=== PATIENT | male | born 1970 | race Two or more races ===

== ENCOUNTER 2017-06-08 17:18 | Emergency (ER) | payer MEDICAID ==
[~2017-06-08] VITALS: Ht 165.1 cm; Wt 72.0 kg
[~2017-06-08 17:18] MED LIST: AMLO10TA13 PO; CITA20TA11 PO; CLON0.1T20 PO; COR3.125T PO; IPRA4AER IH; LISI-644 PO; LOVA40TA2 PO; PANT-47 PO
[2017-06-08 17:50] LABS: BASOPHILS % (AUTO) 0.5 % (0-1); EOSINOPHILS # (AUTO) 0.3 X10'3 (0-0.9); EOSINOPHILS % (AUTO) 4.1 % (0-6); HEMATOCRIT 30.2 % (42.0-52.0); HEMOGLOBIN 9.4 g/dl (14.0-17.9); LYMPHOCYTES # (AUTO) 1.7 X10'3 (1.1-4.8); LYMPHOCYTES % (AUTO) 23.3 % (21-51); MEAN CORPUSCULAR HEMOGLOBIN 20.8 PG (27.0-31.0); MEAN CORPUSCULAR HGB CONC 31.3 % (33.0-36.5); MEAN CORPUSCULAR VOLUME 66.5 FL (78-98); MEAN PLATELET VOLUME 6.9 FL (7.4-10.4); MONOCYTES # (AUTO) 0.4 X10'3 (0-0.9); MONOCYTES % (AUTO) 6.2 % (2-12); NEUTROPHILS # (AUTO) 4.7 X10'3 (1.8-7.7); NEUTROPHILS % (AUTO) 65.9 % (42-75); PLATELET COUNT 430 X10'3 (140-440); RED BLOOD COUNT 4.54 X10'6 (4.70-6.10); RED CELL DISTRIBUTION WIDTH 17.6 % (11.5-14.5); WHITE BLOOD COUNT 7.2 X10'3 (4.5-11.0)
[2017-06-08 17:59] LABS: INR 0.9 INR; PROTHROMBIN TIME 9.5 SECONDS (9.0-12.0)
[2017-06-08 18:04] LABS: ALBUMIN 4.4 G/DL (3.4-5.0); ANION GAP 14 (8-16); BILIRUBIN,TOTAL 0.3 MG/DL (0.1-1.0); BLOOD UREA NITROGEN 14 MG/DL (7-18); BUN/CREATININE RATIO 10.2 (5.4-32.0); CALCIUM 9.2 MG/DL (8.5-10.1); CHLORIDE 100 MMOL/L (99-107); CREATININE 1.37 MG/DL (0.60-1.10); GLUCOSE 262 MG/DL (70-104); POTASSIUM 3.7 MMOL/L (3.5-5.1); SODIUM 139 MMOL/L (135-145); TOTAL CARBON DIOXIDE 25.3 MMOL/L (24-32); eGFR 56 ML/MIN
[2017-06-08 18:05] LABS: ALANINE AMINOTRANSFERASE 37 U/L (12-78); ALBUMIN/GLOBULIN RATIO 1.2 (1.1-1.5); ALKALINE PHOSPHATASE 73 IU/L (46-116); ASPARTATE AMINO TRANSFERASE 16 U/L (10-37)
[2017-06-08 18:24] LABS: PLATELET ESTIMATE NORMAL
[2017-06-08 18:30] LABS: ANISOCYTOSIS 2+; POIKILOCYTOSIS 2+
[2017-06-08 18:32] LABS: POLYCHROMASIA FEW
[2017-06-08 18:33] LABS: HYPOCHROMASIA 1+
[2017-06-08 19:31] LABS: CLARITY,URINE CLEAR (Clear); COLOR,URINE STRAW (Yellow); GLUCOSE, URINE >=1000 mg/dl (Neg); KETONES,URINE NEGATIVE (Neg); LEUKOCYTE ESTERASE ,URINE NEGATIVE (Neg); NITRITES, URINE NEGATIVE (Neg); OCCULT BLOOD,URINE NEGATIVE (Neg); PH,URINE 5.5 (4.8-8.0); PROTEIN,URINE NEGATIVE (Neg); UROBILINOGEN,URINE 0.2 E.U/dL (0.2-1.0)
[2017-06-08 19:35] LABS: UA COLLECTION TYPE CLN CATCH MIDSTREAM
[2017-06-08 19:43] LABS: BACTERIA,URINE NONE SEEN /HPF (Neg); MUCUS STRANDS NONE SEEN /LPF (Neg); RBC,URINE NONE SEEN /HPF (0-2); SQUAMOUS EPITHELIAL CELL,UR FEW /LPF (FEW); WBC,URINE NONE SEEN /HPF (0-4)
[2017-06-08 20:25] VITALS: BP 120/65
[2017-06-11 09:35] LABS: OCCULT BLOOD STOOL NEGATIVE (Neg)
== END 2017-06-08 20:26 | disposition home or self-care (01) ==
LOC: ER 17:19
DX: D53.9 Nutritional anemia, unspecified (principal); I25.10 Atherosclerotic heart disease of native coronary artery without angina pectoris; I25.2 Old myocardial infarction; J45.909 Unspecified asthma, uncomplicated; E78.00 Pure hypercholesterolemia, unspecified; I11.0 Hypertensive heart disease with heart failure; I50.9 Heart failure, unspecified; Z98.62 Peripheral vascular angioplasty status; Z79.899 Other long term (current) drug therapy
CPT/HCPCS: 36415; 71045; 80053; 81001; 82272; 85025; 85610; 86885; 86900; 86901; 93005; 99285

== ENCOUNTER 2020-06-14 19:18 | Emergency (ER) | payer MEDICAID ==
[~2020-06-14] VITALS: Ht 165.1 cm; Wt 79.3 kg
[~2020-06-14 19:18] MED LIST changes: -CITA20TA11 PO; +CITA20TA28 PO; +CLON0.1T2 PO; -CLON0.1T20 PO
[2020-06-14 20:04] LABS: BASOPHILS % (AUTO) 0.2 % (0-1); EOSINOPHILS # (AUTO) 0.2 X10'3 (0-0.9); EOSINOPHILS % (AUTO) 3.2 % (0-6); LYMPHOCYTES # (AUTO) 1.5 X10'3 (1.1-4.8); LYMPHOCYTES % (AUTO) 20.4 % (21-51); MEAN CORPUSCULAR HEMOGLOBIN 28.8 PG (27.0-31.0); MEAN CORPUSCULAR HGB CONC 32.3 g/dL (33.0-36.5); MEAN CORPUSCULAR VOLUME 89.3 FL (78-98); MEAN PLATELET VOLUME 6.8 FL (7.4-10.4); MONOCYTES # (AUTO) 0.5 X10'3 (0-0.9); MONOCYTES % (AUTO) 6.5 % (2-12); NEUTROPHILS # (AUTO) 5.1 X10'3 (1.8-7.7); NEUTROPHILS % (AUTO) 69.7 % (42-75); PLATELET COUNT 381 X10'3 (140-440); RED BLOOD COUNT 3.13 X10'6 (4.70-6.10); RED CELL DISTRIBUTION WIDTH 14.8 % (11.5-14.5); WHITE BLOOD COUNT 7.3 X10'3 (4.5-11.0)
[2020-06-14 20:08] LABS: ALANINE AMINOTRANSFERASE 52 U/L (12-78); ALBUMIN 3.8 G/DL (3.4-5.0); ALBUMIN/GLOBULIN RATIO 1.2 (1.1-1.5); ALKALINE PHOSPHATASE 81 IU/L (46-116); ANION GAP 14 (8-16); ASPARTATE AMINO TRANSFERASE 23 U/L (10-37); BILIRUBIN,TOTAL 0.2 MG/DL (0.1-1.0); BLOOD UREA NITROGEN 10 MG/DL (7-18); BUN/CREATININE RATIO 9.1 (5.4-32.0); CALCIUM 8.2 MG/DL (8.5-10.1); CHLORIDE 97 MMOL/L (99-107); GLUCOSE 314 MG/DL (70-104); POTASSIUM 3.5 MMOL/L (3.5-5.1); SODIUM 134 MMOL/L (135-145); TOTAL CARBON DIOXIDE 23.5 MMOL/L (24-32); eGFR 71 ML/MIN
[2020-06-14] MEDS ORDERED: POTA10CA44 PO (20:11)
[2020-06-14] MEDS ORDERED: CLOP75TA34 PO (20:11)
[2020-06-14] MEDS ORDERED: FERR325T29 PO (20:11)
[2020-06-14] MEDS ORDERED: METF-438 PO (20:11)
[2020-06-14] MEDS ORDERED: GABA-530 PO (20:11)
[2020-06-14] MEDS ORDERED: HYDR25TA4 PO (20:11)
[2020-06-14] MEDS ORDERED: INSU100I31 SUBCUT (20:11)
[2020-06-14] MEDS ORDERED: OMEP-50 PO (20:11)
[2020-06-14 22:10] VITALS: BP 148/90
== END 2020-06-14 22:12 | disposition home or self-care (01) ==
LOC: ER 19:19
DX: R07.89 Other chest pain (principal); I25.10 Atherosclerotic heart disease of native coronary artery without angina pectoris; I11.0 Hypertensive heart disease with heart failure; I50.9 Heart failure, unspecified; E78.00 Pure hypercholesterolemia, unspecified; I25.2 Old myocardial infarction; J45.909 Unspecified asthma, uncomplicated; E11.9 Type 2 diabetes mellitus without complications; F41.9 Anxiety disorder, unspecified; Z98.61 Coronary angioplasty status; Z79.899 Other long term (current) drug therapy
CPT/HCPCS: 36415; 71045; 80053; 83880; 84484; 85025; 93005; 99285

== ENCOUNTER 2023-10-24 00:44 | Inpatient (IN) | payer MEDICAID ==
[~2023-10-24] VITALS: Ht 152.4 cm; Wt 80.6 kg
[2023-10-24] VITALS (9 sets, daily range): BP systolic 109–147; BP diastolic 52–75; PULSE 70–77; RESP 16–24; TEMP 97–98.3; O2SAT 92–99
[~2023-10-24 00:44] MED LIST changes: +CLOP75TA34 PO; +FERR325T29 PO; +GABA-530 PO; +HYDR25TA4 PO; +INSU100I31 SUBCUT; +METF-438 PO; +OMEP20CA16 PO; +POTA10CA95 PO
[2023-10-24 01:15] LABS: BASOPHILS # (AUTO) 0.1 X10'3 (0-0.2); BASOPHILS % (AUTO) 0.5 % (0-1); EOSINOPHILS # (AUTO) 0.6 X10'3 (0-0.9); EOSINOPHILS % (AUTO) 5.4 % (0-6); HEMATOCRIT 26.5 % (42.0-52.0); HEMOGLOBIN 7.9 g/dl (14.0-17.9); LYMPHOCYTES # (AUTO) 2.1 X10'3 (1.1-4.8); LYMPHOCYTES % (AUTO) 18.9 % (21-51); MEAN CORPUSCULAR HEMOGLOBIN 21.3 PG (27.0-31.0); MEAN CORPUSCULAR HGB CONC 29.8 g/dL (33.0-36.5); MEAN CORPUSCULAR VOLUME 71.3 FL (78-98); MEAN PLATELET VOLUME 7.9 FL (7.4-10.4); MONOCYTES # (AUTO) 1.1 X10'3 (0-0.9); MONOCYTES % (AUTO) 9.9 % (2-12); NEUTROPHILS # (AUTO) 7.2 X10'3 (1.8-7.7); NEUTROPHILS % (AUTO) 65.3 % (42-75); PLATELET COUNT 277 X10'3 (140-440); RED BLOOD COUNT 3.72 X10'6 (4.70-6.10); RED CELL DISTRIBUTION WIDTH 18.1 % (11.5-14.5)
[2023-10-24 01:29] LABS: ALANINE AMINOTRANSFERASE 40 U/L (12-78); ALBUMIN/GLOBULIN RATIO 1.2 (1.1-1.5); ALKALINE PHOSPHATASE 83 IU/L (46-116); ANION GAP 10 (8-16); ASPARTATE AMINO TRANSFERASE 27 U/L (10-37); BILIRUBIN,TOTAL 0.6 MG/DL (0.1-1.0); BLOOD UREA NITROGEN 9 MG/DL (7-18); BUN/CREATININE RATIO 6.8 (10.0-20.0); CALCIUM 9.1 MG/DL (8.5-10.1); CHLORIDE 96 MMOL/L (99-107); CREATININE 1.33 MG/DL (0.60-1.10); GLUCOSE 270 MG/DL (70-104); POTASSIUM 3.1 MMOL/L (3.5-5.1); SODIUM 135 MMOL/L (135-145); TOTAL CARBON DIOXIDE 28.8 MMOL/L (24-32); TOTAL PROTEIN 7.4 G/DL (6.4-8.2); eCRCL 57 ML/MIN; eGFR 56 ML/MIN
[2023-10-24 01:38] LABS: PRO BRAIN NATRIURETIC PEPTIDE 609 PG/ML (0-125)
[2023-10-24] MEDS: furosemide 10 MG/1 ML 10ml inj IV ONE (01:39)
[2023-10-24 03:54] LABS: ANISOCYTOSIS 2+; HYPOCHROMASIA 2+; PLATELET ESTIMATE NORMAL
[2023-10-24 03:55] LABS: ELLIPTOCYTES FEW; POLYCHROMASIA FEW; STOMATOCYTES FEW
[2023-10-24 03:56] LABS: POIKILOCYTOSIS 1+
[2023-10-24 03:57] LABS: MICROCYTOSIS 1+
[2023-10-24] MEDS ORDERED: magnesium hydroxide 30ml (MOM) UD suspension PO PRN (04:00)
[2023-10-24] MEDS ORDERED: HYDROcodone/acetaminophen 5mg/325mg tablet PO PRN (04:00)
[2023-10-24] MEDS ORDERED: mag hydrox/Alum hydrox/simeth 30ml oral suspension PO PRN (04:00)
[2023-10-24] MEDS ORDERED: ondansetron/PF 4mg/2ml inj IV PRN (04:00)
[2023-10-24] MEDS ORDERED: magnesium Cl slow-release 64mg tablet PO PRN (04:00)
[2023-10-24] MEDS ORDERED: potassium Cl 20 mEq SR tablet PO PRN (04:00)
[2023-10-24] MEDS ORDERED: acetaminophen 325mg tablet PO PRN (04:00)
[2023-10-24] MEDS ORDERED: albuterol 2.5 MG/3 ML nebule NEB PRN (04:00)
[2023-10-24] MEDS ORDERED: potassium Cl 40MEQ/1/2NS 520ml 520 ML IV PRN (04:00)
[2023-10-24] MEDS ORDERED: magnesium sulf-water 4G/100mL 100 ML IV PRN (04:00)
[2023-10-24] MEDS ORDERED: LISI30TA4 PO (04:18)
[2023-10-24] MEDS ORDERED: CARV-50 PO (04:18)
[2023-10-24] MEDS ORDERED: NITR0.4T48 SL (04:18)
[2023-10-24] MEDS ORDERED: FURO20TA4 PO (04:18)
[2023-10-24] MEDS ORDERED: DAPA5TAB PO (04:18)
[2023-10-24] MEDS: PERFLUTREN PROTEIN-A MICROSPHR (Optison) 0.22 MG/ML 3ML VIAL IV ONE (04:19)
[2023-10-24] MEDS ORDERED: DEXTROSE 15 GM of carb/4 tabs (each vial/BOTTLE has 4 tablets) PO PRN ×2 (05:40)
[2023-10-24] MEDS ORDERED: dextrose 50%-water 50ml dispensing syringe IV PRN (05:40)
[2023-10-24] MEDS: INSULIN LISPRO 100 UNIT/ML INSULN.PEN MULTI-DOSE SQ SCH (07:00)
[2023-10-24 07:40] LABS: CHOL/HDL RATIO 3.1 (0.00-4.99); CHOLESTEROL 95 MG/DL (0-200); FERRITIN 9 NG/ML (26-388); HDL CHOLESTEROL 31 MG/DL (35-60); LDL CHOLESTEROL 41 MG/DL (50-100); MAGNESIUM 1.6 MG/DL (1.5-2.4); TRIGLYCERIDES 150 MG/DL (20-135)
[2023-10-24 07:46] LABS: POTASSIUM 2.8 MMOL/L (3.5-5.1)
[2023-10-24 08:04] LABS: HEMOGLOBIN A1C 7.8 % (4.5-6.2)
[2023-10-24] MEDS: docusate sod 100mg capsule PO SCH (08:43)
[2023-10-24] MEDS: potassium Cl 20 mEq SR tablet PO PRN (08:43)
[2023-10-24] MEDS: enoxaparin 40mg/0.4ml syringe SUBCUT SCH (08:45)
[2023-10-24] MEDS: iron sucrose complex injection 300 MG in normal saline 250ml IV soln 250 ML IV SCH (08:45)
[2023-10-24] MEDS: nicotine 7mg patch - 24hr TD SCH (08:45)
[2023-10-24] MEDS: furosemide 10 MG/1 ML 10ml inj IV SCH (09:13)
[2023-10-24 09:42] LABS: % IRON SATURATION 3 % (11-46); IRON 14 UG/DL (53-167); TOTAL IRON BINDING CAPACITY 468 UG/DL (259-388)
[2023-10-24] MEDS ORDERED: furosemide 10 MG/1 ML 10ml inj IV SCH (12:12)
[2023-10-24] MEDS: aspirin 81mg, enteric-coated 1 TAB TABLET.DR PO ONE (13:45)
[2023-10-24] MEDS: magnesium sulf-water 2g/50mL 50 ML IV ONE (13:47)
[2023-10-24 20:25] LABS: OCCULT BLOOD STOOL NEGATIVE (Neg)
[2023-10-24] MEDS: insulin glargine (Lantus) pen - multi-dose SQ SCH (21:48)
[2023-10-24] MEDS: carVEDilol 12.5mg tablet PO SCH (21:49)
[2023-10-24] MEDS: atorvastatin 10mg tablet PO SCH (21:49)
[2023-10-24] MEDS: furosemide 40mg/4ml inj IV SCH (21:49)
[2023-10-24] MEDS: Melatonin 3mg tablet PO PRN (23:05)
[2023-10-25 04:00] VITALS: BP 122/65; PULSE 65; RESP 14; TEMP 98.6; O2SAT 98
[2023-10-25 06:00] VITALS: BP 121/71; PULSE 68; RESP 13; TEMP 97.2; O2SAT 96
[2023-10-25 07:41] LABS: BASOPHILS % (AUTO) 0.5 % (0-1); EOSINOPHILS # (AUTO) 0.5 X10'3 (0-0.9); EOSINOPHILS % (AUTO) 5.5 % (0-6); HEMATOCRIT 26.6 % (42.0-52.0); LYMPHOCYTES # (AUTO) 1.4 X10'3 (1.1-4.8); LYMPHOCYTES % (AUTO) 15.1 % (21-51); MEAN CORPUSCULAR HEMOGLOBIN 21.3 PG (27.0-31.0); MEAN CORPUSCULAR HGB CONC 29.9 g/dL (33.0-36.5); MEAN CORPUSCULAR VOLUME 71.1 FL (78-98); MEAN PLATELET VOLUME 8.1 FL (7.4-10.4); MONOCYTES # (AUTO) 0.9 X10'3 (0-0.9); MONOCYTES % (AUTO) 9.6 % (2-12); NEUTROPHILS # (AUTO) 6.3 X10'3 (1.8-7.7); NEUTROPHILS % (AUTO) 69.3 % (42-75); PLATELET COUNT 256 X10'3 (140-440); RED BLOOD COUNT 3.74 X10'6 (4.70-6.10); RED CELL DISTRIBUTION WIDTH 18.1 % (11.5-14.5); WHITE BLOOD COUNT 9.1 X10'3 (4.5-11.0)
[2023-10-25 07:54] LABS: ALANINE AMINOTRANSFERASE 35 U/L (12-78); ALBUMIN 3.7 G/DL (3.4-5.0); ALKALINE PHOSPHATASE 65 IU/L (46-116); ANION GAP 7 (8-16); ASPARTATE AMINO TRANSFERASE 22 U/L (10-37); BILIRUBIN,TOTAL 0.5 MG/DL (0.1-1.0); BLOOD UREA NITROGEN 9 MG/DL (7-18); BUN/CREATININE RATIO 8.3 (10.0-20.0); CALCIUM 9.2 MG/DL (8.5-10.1); CHLORIDE 106 MMOL/L (99-107); CREATININE 1.09 MG/DL (0.60-1.10); GLUCOSE 152 MG/DL (70-104); POTASSIUM 3.7 MMOL/L (3.5-5.1); SODIUM 142 MMOL/L (135-145); TOTAL CARBON DIOXIDE 29.4 MMOL/L (24-32); TOTAL PROTEIN 7.3 G/DL (6.4-8.2); eCRCL 56 ML/MIN; eGFR 71 ML/MIN
[2023-10-25] MEDS ORDERED: non-formulary drug (Dapagliflozin Propanediol (Farxiga) 1 TAB) PO SCH (08:00)
[2023-10-25] MEDS ORDERED: lisinopril 10 MG tablet PO SCH (08:00)
[2023-10-25] MEDS: sodium ferric gluc complex inj 125 MG in normal saline 100ml IV soln 100 ML IV SCH (08:08)
[2023-10-25] MEDS ORDERED: DAPAGLIFLOZIN 10MG TABLET PO SCH ×2 (08:08)
[2023-10-25 08:26] VITALS: PULSE 74; RESP 16; O2SAT 95
[2023-10-25] MEDS: aspirin 81mg, enteric-coated 1 TAB TABLET.DR PO SCH (09:04)
[2023-10-25] MEDS: clopidogrel 75mg tablet PO SCH (09:05)
[2023-10-25] MEDS: losartan 50mg tablet PO SCH (09:07)
[2023-10-25] MEDS: DAPAGLIFLOZIN 10MG TABLET PO SCH (09:07)
[2023-10-25] MEDS: INSULIN LISPRO 100 UNIT/ML INSULN.PEN MULTI-DOSE SQ SCH (17:00)
[2023-10-25 18:00] VITALS: BP 143/66; PULSE 67; RESP 20; TEMP 98.2; O2SAT 96
[2023-10-25] MEDS ORDERED: dextrose 50%-water 50ml dispensing syringe IV PRN ×2 (18:00)
[2023-10-25] MEDS ORDERED: glucagon, human recombinant 1mg kit SUBCUT PRN (18:00)
[2023-10-25] MEDS ORDERED: DEXTROSE 15 GM of carb/4 tabs (each vial/BOTTLE has 4 tablets) PO PRN ×2 (18:00)
[2023-10-25 20:00] VITALS: RESP 20; O2SAT 96
[2023-10-25 20:02] VITALS: PULSE 74; RESP 16; O2SAT 92
[2023-10-25] MEDS: ascorbic acid 500mg tablet PO SCH (20:46)
[2023-10-26 02:00] VITALS: BP 108/58; PULSE 68; RESP 16; TEMP 97.2; O2SAT 97
[2023-10-26 06:56] VITALS: BP 123/57; PULSE 65; RESP 16; TEMP 97; O2SAT 94
[2023-10-26 07:11] LABS: ALANINE AMINOTRANSFERASE 38 U/L (12-78); ALBUMIN 3.9 G/DL (3.4-5.0); ALKALINE PHOSPHATASE 73 IU/L (46-116); ANION GAP 10 (8-16); ASPARTATE AMINO TRANSFERASE 28 U/L (10-37); BILIRUBIN,TOTAL 0.5 MG/DL (0.1-1.0); BLOOD UREA NITROGEN 10 MG/DL (7-18); BUN/CREATININE RATIO 10.3 (10.0-20.0); CALCIUM 9.8 MG/DL (8.5-10.1); CHLORIDE 103 MMOL/L (99-107); CREATININE 0.97 MG/DL (0.60-1.10); GLUCOSE 155 MG/DL (70-104); POTASSIUM 3.5 MMOL/L (3.5-5.1); SODIUM 140 MMOL/L (135-145); TOTAL CARBON DIOXIDE 27.1 MMOL/L (24-32); TOTAL PROTEIN 7.8 G/DL (6.4-8.2); eCRCL 63 ML/MIN; eGFR 81 ML/MIN
[2023-10-26 07:18] LABS: BASOPHILS # (AUTO) 0.1 X10'3 (0-0.2); BASOPHILS % (AUTO) 0.8 % (0-1); EOSINOPHILS # (AUTO) 0.6 X10'3 (0-0.9); EOSINOPHILS % (AUTO) 5.6 % (0-6); LYMPHOCYTES # (AUTO) 1.9 X10'3 (1.1-4.8); LYMPHOCYTES % (AUTO) 18.8 % (21-51); MEAN PLATELET VOLUME 8.2 FL (7.4-10.4); MONOCYTES # (AUTO) 0.9 X10'3 (0-0.9); MONOCYTES % (AUTO) 9.1 % (2-12); NEUTROPHILS # (AUTO) 6.5 X10'3 (1.8-7.7); NEUTROPHILS % (AUTO) 65.7 % (42-75); PLATELET COUNT 280 X10'3 (140-440); WHITE BLOOD COUNT 9.9 X10'3 (4.5-11.0)
[2023-10-26 07:36] VITALS: BP_SYST 123
[2023-10-26 07:49] LABS: HEMATOCRIT 30.1 % (42.0-52.0); HEMOGLOBIN 9.1 g/dl (14.0-17.9); MEAN CORPUSCULAR VOLUME 72.3 FL (78-98); RED BLOOD COUNT 4.16 X10'6 (4.70-6.10)
[2023-10-26 07:50] LABS: MEAN CORPUSCULAR HEMOGLOBIN 21.8 PG (27.0-31.0); MEAN CORPUSCULAR HGB CONC 30.1 g/dL (33.0-36.5); RED CELL DISTRIBUTION WIDTH 17.9 % (11.5-14.5)
[2023-10-26 08:00] VITALS: RESP 16; O2SAT 94
[2023-10-26 11:00] VITALS: PULSE 64; RESP 20; O2SAT 95
[2023-10-26] MEDS: sodium ferric gluc complex inj 125 MG in normal saline 100ml IV soln 100 ML IV ONE (11:08)
[2023-10-26] MEDS ORDERED: FERR28TA PO (12:41)
[2023-10-26] MEDS ORDERED: LOSA50TA64 PO (12:41)
[2023-10-26] MEDS ORDERED: ASPI-1071 PO (12:41)
[2023-10-26] MEDS ORDERED: ASCO-134 PO (12:41)
[2023-10-27] MEDS ORDERED: iron polysaccharide complex 150mg capsule PO SCH (20:00)
== END 2023-10-26 13:40 | disposition home or self-care (01) | DRG 194 ==
LOC: ER 00:45 → ED HOLD 04:06 → PCU 3S 05:43
PROVIDERS: ADMIT Student in an Organized Health Care Education/Training Program; ATTEND Family Medicine
DX: I11.0 Hypertensive heart disease with heart failure (principal); N17.0 Acute kidney failure with tubular necrosis; Z79.01 Long term (current) use of anticoagulants; E11.9 Type 2 diabetes mellitus without complications; E78.00 Pure hypercholesterolemia, unspecified; D50.9 Iron deficiency anemia, unspecified; E83.42 Hypomagnesemia; E87.6 Hypokalemia; I25.10 Atherosclerotic heart disease of native coronary artery without angina pectoris; F32.A Depression, unspecified; I50.33 Acute on chronic diastolic (congestive) heart failure; F41.9 Anxiety disorder, unspecified; J45.909 Unspecified asthma, uncomplicated; T50.995A Adverse effect of other drugs, medicaments and biological substances, initial encounter; Y92.89 Other specified places as the place of occurrence of the external cause; I25.2 Old myocardial infarction; Z79.84 Long term (current) use of oral hypoglycemic drugs; Z79.899 Other long term (current) drug therapy
CPT/HCPCS: 36415; 71045; 80053; 80061; 82272; 82728; 82948; 83036; 83540; 83550; 83735; 83880; 84132; 84484; 85008; 85025; 87081; 93005; 93306; 94760; 97110; 97116; 97161; 97530; 99285; G0378; J1650; J1756; J1815; J1940; J2916; J7040; J7050

== ENCOUNTER 2023-11-06 01:26 | Inpatient (IN) | payer MEDICAID ==
[2023-11-06] VITALS (29 sets, daily range): BP systolic 96–157; BP diastolic 57–94; PULSE 63–88; RESP 8–26; TEMP 97.8–98.2; O2SAT 87–100
[~2023-11-06] VITALS: Ht 152.4 cm; Wt 68.2 kg
[~2023-11-06 01:26] MED LIST changes: +ASCO-134 PO; +ASPI-1071 PO; +CARV-50 PO; -COR3.125T PO; +DAPA5TAB PO; +FERR28TA PO; -FERR325T29 PO; +FURO20TA4 PO; -LISI-644 PO; +LOSA50TA64 PO; +NITR0.4T48 SL; -PANT-47 PO
[2023-11-06] MEDS: furosemide 10 MG/1 ML 10ml inj IV ONE (01:53)
[2023-11-06 02:08] LABS: ALBUMIN 4.4 G/DL (3.4-5.0); ANION GAP 17 (8-16); BLOOD UREA NITROGEN 6 MG/DL (7-18); BUN/CREATININE RATIO 4.6 (10.0-20.0); CALCIUM 9.1 MG/DL (8.5-10.1); CHLORIDE 98 MMOL/L (99-107); GLUCOSE 275 MG/DL (70-104); MAGNESIUM 1.5 MG/DL (1.5-2.4); PRO BRAIN NATRIURETIC PEPTIDE 369 PG/ML (0-125); SODIUM 141 MMOL/L (135-145); TOTAL CARBON DIOXIDE 26.4 MMOL/L (24-32); eCRCL 47 ML/MIN; eGFR 58 ML/MIN
[2023-11-06 02:44] LABS: ABG BASE EXCESS -9.9 mmol/L (-2.0-3.0); ABG HCO3 21.9 mmol/L (21.0-28.0); ABG OXYGEN SATURATION 94.6 % (94.0-98.0); ABG PH (T) 7.034 (7.350-7.450); ABG PO2 (T) 102.8 mmHg (83.0-108.0); FHHb 5.1 % (0.0-5.0); FMetHb 0.3 % (0.0-1.5); FO2Hb 88.6 % (94.0-98.0); MODE VENT - PRVC; PEEP 10 cm H2O; RESPIRATORY RATE 16 b/min; TIDAL VOLUME 400 mL; TOTAL HEMOGLOBIN 11.6 G/dl (13.5-17.5)
[2023-11-06] MEDS: albuterol 2.5 MG/3 ML nebule NEB ONE (02:55)
[2023-11-06] MEDS ORDERED: magnesium sulf-water 2g/50mL 50 ML IV PRN ×3 (02:55→07:35)
[2023-11-06] MEDS ORDERED: potassium Cl 20 mEq SR tablet PO PRN ×4 (02:55→04:15)
[2023-11-06] MEDS ORDERED: magnesium sulf-water 4G/100mL 100 ML IV PRN ×3 (02:55→07:35)
[2023-11-06] MEDS ORDERED: albuterol 2.5 MG/3 ML nebule CONTNEB PRN (02:55)
[2023-11-06] MEDS: nitroGLYCERIN-Tridil 50MG/D5W 250 ML IV PRN (03:02)
[2023-11-06] MEDS: ipratropium 0.5 MG/2.5ML nebule IH ONE (03:20)
[2023-11-06 03:28] LABS: BILIRUBIN,URINE NEGATIVE (Neg); CLARITY,URINE CLEAR (Clear); COLOR,URINE STRAW (Yellow); GLUCOSE, URINE >=1000 mg/dl (Neg); KETONES,URINE NEGATIVE (Neg); LEUKOCYTE ESTERASE ,URINE NEGATIVE (Neg); NITRITES, URINE NEGATIVE (Neg); OCCULT BLOOD,URINE TRACE-INTACT (Neg); PROTEIN,URINE 30 mg/dl (Neg); UROBILINOGEN,URINE 0.2 E.U/dL (0.2-1.0)
[2023-11-06] MEDS: propofol 1000mg/100ml bottle 100 ML IV ONE (03:30)
[2023-11-06 03:35] LABS: URINE AMPHETAMINE SCREEN NEGATIVE (Neg); URINE BARBITUATE SCREEN NEGATIVE (Neg); URINE BENZODIAZEPINES SCREEN NEGATIVE (Neg); URINE CANNABINOID SCREEN NEGATIVE (Neg); URINE COCAINE SCREEN NEGATIVE (Neg); URINE METHADONE SCREEN NEGATIVE (Neg); URINE OPIATE SCREEN POSITIVE (Neg); URINE PHENCYCLIDINE SCREEN NEGATIVE (Neg)
[2023-11-06] MEDS: NORepinephrine 8mg/ 250ml NS 250 ML IV SCH (03:35)
[2023-11-06 03:38] LABS: UA COLLECTION TYPE FOLEY CATH
[2023-11-06 03:41] LABS: SQUAMOUS EPITHELIAL CELL,UR FEW /LPF (FEW)
[2023-11-06 03:43] LABS: BACTERIA,URINE FEW /HPF (Neg)
[2023-11-06 03:44] LABS: WBC,URINE 0-4 /HPF (0-4)
[2023-11-06] MEDS: methylPREDNISolone sod succ 125mg/2ml vial IV ONE (03:57)
[2023-11-06] MEDS: piperacillin/tazo 3.375gm/50ml 50 ML IV ONE (03:58)
[2023-11-06] MEDS ORDERED: magnesium hydroxide 30ml (MOM) UD suspension PO PRN (04:15)
[2023-11-06] MEDS ORDERED: acetaminophen 325mg tablet PO PRN (04:15)
[2023-11-06] MEDS ORDERED: mag hydrox/Alum hydrox/simeth 30ml oral suspension PO PRN (04:15)
[2023-11-06] MEDS ORDERED: ondansetron/PF 4mg/2ml inj IV PRN (04:15)
[2023-11-06] MEDS ORDERED: potassium Cl 40MEQ/1/2NS 520ml 520 ML IV PRN (04:15)
[2023-11-06] MEDS ORDERED: magnesium Cl slow-release 64mg tablet PO PRN (04:15)
[2023-11-06 04:35] LABS: BASOPHILS # (AUTO) 0.1 X10'3 (0-0.2); BASOPHILS % (AUTO) 0.3 % (0-1); EOSINOPHILS # (AUTO) 0.4 X10'3 (0-0.9); EOSINOPHILS % (AUTO) 1.4 % (0-6); LYMPHOCYTES # (AUTO) 2.1 X10'3 (1.1-4.8); MEAN PLATELET VOLUME 7.7 FL (7.4-10.4)
[2023-11-06 04:37] LABS: LYMPHOCYTES % (AUTO) 7.8 % (21-51); MONOCYTES # (AUTO) 2.1 X10'3 (0-0.9); MONOCYTES % (AUTO) 7.9 % (2-12); NEUTROPHILS # (AUTO) 22.3 X10'3 (1.8-7.7); NEUTROPHILS % (AUTO) 82.6 % (42-75); PLATELET COUNT 449 X10'3 (140-440)
[2023-11-06 04:41] LABS: ABG BASE EXCESS -0.7 mmol/L (-2.0-3.0); ABG HCO3 27.8 mmol/L (21.0-28.0); ABG OXYGEN SATURATION 94.1 % (94.0-98.0); ABG PCO2 (T) 62.5 mmHg (35.0-48.0); ABG PH (T) 7.257 (7.350-7.450); ABG PO2 (T) 74.3 mmHg (83.0-108.0); FCOHb 4.3 % (0.5-1.5); FHHb 5.6 % (0.0-5.0); FMetHb 0.3 % (0.0-1.5); FO2Hb 89.8 % (94.0-98.0); MODE VENT - PRVC; PATIENT TEMPERATURE 35.3; PEEP 10 cm H2O; RESPIRATORY RATE 20 b/min; TIDAL VOLUME 400 mL; TOTAL HEMOGLOBIN 10.8 G/dl (13.5-17.5)
[2023-11-06] MEDS ORDERED: MIDAZOLAM IN NACL,ISO-OSMOT/PF 100 ML IV PRN (04:55)
[2023-11-06] MEDS ORDERED: midazolam 100mg in NS 100ml 100 ML IV ONE (05:00)
[2023-11-06] MEDS ORDERED: FENTANYL-0.9 % NACL/PF 100 ML IV ONE (05:00)
[2023-11-06] MEDS: midazolam 100mg in NS 100ml 100 ML IV PRN (05:17)
[2023-11-06] MEDS: FENTANYL-0.9 % NACL/PF 100 ML IV SCH (05:18)
[2023-11-06] MEDS: VECuronium br 10mg inj. IV ONE ×2 (05:31→05:32)
[2023-11-06 06:03] LABS: HEMOGLOBIN 11.2 g/dl (14.0-17.9); RED BLOOD COUNT 4.83 X10'6 (4.70-6.10); WHITE BLOOD COUNT 26.9 X10'3 (4.5-11.0)
[2023-11-06 06:04] LABS: MEAN CORPUSCULAR HEMOGLOBIN 23.1 PG (27.0-31.0); MEAN CORPUSCULAR HGB CONC 30.9 g/dL (33.0-36.5); MEAN CORPUSCULAR VOLUME 74.7 FL (78-98); RED CELL DISTRIBUTION WIDTH 22.3 % (11.5-14.5)
[2023-11-06 06:13] LABS: PLATELET ESTIMATE INCREASED
[2023-11-06 06:14] LABS: ANISOCYTOSIS 3+; MICROCYTOSIS 1+
[2023-11-06] MEDS: normal saline 1000ml 1,000 ML IV SCH (07:30)
[2023-11-06] MEDS: K and/or MAG REPLACEMENT MC SCH (07:44)
[2023-11-06] MEDS ORDERED: K and/or MAG REPLACEMENT MC SCH (08:00)
[2023-11-06 08:12] LABS: ABG BASE EXCESS 1.4 mmol/L (-2.0-3.0); ABG HCO3 26.3 mmol/L (21.0-28.0); ABG OXYGEN SATURATION 99.7 % (94.0-98.0); ABG PCO2 (T) 41.3 mmHg (35.0-48.0); ABG PH (T) 7.418 (7.350-7.450); ABG PO2 (T) 161.5 mmHg (83.0-108.0); FCOHb 2.9 % (0.5-1.5); FHHb 0.3 % (0.0-5.0); FMetHb 0.2 % (0.0-1.5); FO2Hb 96.6 % (94.0-98.0); MODE VENT - AC/PRVC; PATIENT TEMPERATURE 35.9; PEEP 10 cm H2O; RESPIRATORY RATE 20 b/min; TIDAL VOLUME 400 mL; TOTAL HEMOGLOBIN 10.2 G/dl (13.5-17.5)
[2023-11-06] MEDS: heparin, porcine 5000 units/ml vial SQ SCH (08:14)
[2023-11-06] MEDS: potassium Cl 40MEQ/270ML bag 270 ML IV PRN (08:14)
[2023-11-06] MEDS ORDERED: NORepinephrine 8 MG in NS 250 ML BAG (32 mcg/ml) IV ONE (09:00)
[2023-11-06] MEDS: propofol 1000mg/100ml bottle 100 ML IV SCH (09:44)
[2023-11-06 11:23] LABS: ALANINE AMINOTRANSFERASE 34 U/L (12-78); ALBUMIN 3.7 G/DL (3.4-5.0); ALBUMIN/GLOBULIN RATIO 1.1 (1.1-1.5); ALKALINE PHOSPHATASE 63 IU/L (46-116); ANION GAP 9 (8-16); ASPARTATE AMINO TRANSFERASE 33 U/L (10-37); BILIRUBIN,TOTAL 0.6 MG/DL (0.1-1.0); BLOOD UREA NITROGEN 11 MG/DL (7-18); BUN/CREATININE RATIO 8.8 (10.0-20.0); CALCIUM 8.4 MG/DL (8.5-10.1); CHLORIDE 107 MMOL/L (99-107); CREATININE 1.25 MG/DL (0.60-1.10); GLUCOSE 201 MG/DL (70-104); PHOSPHORUS 2.5 MG/DL (2.3-4.5); POTASSIUM 3.7 MMOL/L (3.5-5.1); SODIUM 144 MMOL/L (135-145); TOTAL CARBON DIOXIDE 27.7 MMOL/L (24-32); TOTAL PROTEIN 7.2 G/DL (6.4-8.2); eCRCL 49 ML/MIN; eGFR 61 ML/MIN
[2023-11-06] MEDS: pantoprazole 40MG/NS 100ML BAG 100 ML IV SCH (11:25)
[2023-11-06] MEDS: HEPARIN DRIP-CARDIAC**PHARMACIST-TO-DOSE IV ONE (11:25)
[2023-11-06] MEDS: INSULIN LISPRO 100 UNIT/ML INSULN.PEN MULTI-DOSE SQ SCH (12:00)
[2023-11-06] MEDS: aspirin 81mg tab.chew PO SCH (12:28)
[2023-11-06 12:30] LABS: APTT 27 SECONDS (22-32); INR 1.1 INR
[2023-11-06] MEDS: heparin 10,000 units/1 ML INJ IV ONE (12:33)
[2023-11-06] MEDS: MESSAGE TO NURSING IV ONE ×2 (12:35→23:55)
[2023-11-06] MEDS ORDERED: NOVLG SQ (16:10)
[2023-11-06 16:39] LABS: POTASSIUM 3.9 MMOL/L (3.5-5.1)
[2023-11-06] MEDS: heparin 10,000 units/1 ML INJ IV PRN (20:30)
[2023-11-07] VITALS (21 sets, daily range): BP systolic 102–222; BP diastolic 53–160; PULSE 64–97; RESP 16–24; TEMP 98–98.5; O2SAT 91–100
[2023-11-07 02:38] LABS: BASOPHILS % (AUTO) 0.1 % (0-1); EOSINOPHILS % (AUTO) 0 % (0-6); HEMATOCRIT 28.9 % (42.0-52.0); HEMOGLOBIN 8.6 g/dl (14.0-17.9); LYMPHOCYTES # (AUTO) 1.1 X10'3 (1.1-4.8); LYMPHOCYTES % (AUTO) 10.6 % (21-51); MEAN CORPUSCULAR HEMOGLOBIN 22.7 PG (27.0-31.0); MEAN CORPUSCULAR HGB CONC 29.7 g/dL (33.0-36.5); MEAN CORPUSCULAR VOLUME 76.5 FL (78-98); MEAN PLATELET VOLUME 7.6 FL (7.4-10.4); MONOCYTES % (AUTO) 10.5 % (2-12); NEUTROPHILS # (AUTO) 7.8 X10'3 (1.8-7.7); NEUTROPHILS % (AUTO) 78.8 % (42-75); PLATELET COUNT 351 X10'3 (140-440); RED CELL DISTRIBUTION WIDTH 23.5 % (11.5-14.5); WHITE BLOOD COUNT 9.9 X10'3 (4.5-11.0)
[2023-11-07 02:49] LABS: ALANINE AMINOTRANSFERASE 39 U/L (12-78); ALBUMIN 3.4 G/DL (3.4-5.0); ALBUMIN/GLOBULIN RATIO 1.1 (1.1-1.5); ALKALINE PHOSPHATASE 59 IU/L (46-116); ANION GAP 8 (8-16); ASPARTATE AMINO TRANSFERASE 28 U/L (10-37); BILIRUBIN,TOTAL 0.4 MG/DL (0.1-1.0); BLOOD UREA NITROGEN 12 MG/DL (7-18); BUN/CREATININE RATIO 12.2 (10.0-20.0); CALCIUM 9.1 MG/DL (8.5-10.1); CHLORIDE 107 MMOL/L (99-107); CREATININE 0.98 MG/DL (0.60-1.10); GLUCOSE 142 MG/DL (70-104); POTASSIUM 3.7 MMOL/L (3.5-5.1); SODIUM 143 MMOL/L (135-145); TOTAL PROTEIN 6.4 G/DL (6.4-8.2); eCRCL 62 ML/MIN; eGFR 80 ML/MIN
[2023-11-07 02:51] LABS: MAGNESIUM 1.6 MG/DL (1.5-2.4); PHOSPHORUS 3.3 MG/DL (2.3-4.5); TRIGLYCERIDES 157 MG/DL (20-135)
[2023-11-07 03:35] LABS: RED BLOOD COUNT 3.78 X10'6 (4.70-6.10)
[2023-11-07] MEDS: MESSAGE TO NURSING IV ONE ×3 (04:39→20:54)
[2023-11-07 05:33] LABS: ANISOCYTOSIS 3+; HYPOCHROMASIA 2+; MICROCYTOSIS 1+; PLATELET ESTIMATE NORMAL; POLYCHROMASIA 1+; SCHISTOCYTES FEW
[2023-11-07] MEDS ORDERED: ipratropium/albuterol 3ml nebule NEB PRN (08:15)
[2023-11-07 09:13] LABS: % IRON SATURATION 5 % (11-46); IRON 19 UG/DL (53-167); TOTAL IRON BINDING CAPACITY 373 UG/DL (259-388)
[2023-11-07] MEDS: insulin glargine (Lantus) pen - multi-dose SQ SCH (09:27)
[2023-11-07] MEDS: carvedilol 6.25mg tablet PO SCH (09:29)
[2023-11-07] MEDS: clopidogrel 75mg tablet PO SCH (09:29)
[2023-11-07 09:30] LABS: FERRITIN 118 NG/ML (26-388)
[2023-11-07] MEDS: ipratropium/albuterol 3ml nebule NEB PRN (11:57)
[2023-11-07] MEDS: insulin Lispro (HumaLOG) vial - multi-dose SQ SCH (12:00)
[2023-11-07] MEDS: potassium chloride 10mEq ER tablet PO SCH (15:18)
[2023-11-07] MEDS: heparin 25,000 UNIT/250ml bag 250 ML IV PRN (16:20)
[2023-11-07] MEDS: morphine 2 MG/ML inj. syringe IV PRN (16:37)
[2023-11-07] MEDS ORDERED: furosemide 40mg/4ml inj IV ONE (16:45)
[2023-11-07] MEDS: furosemide 20 MG/2 ML vial IV ONE (16:50)
[2023-11-07 17:02] LABS: ABG BASE EXCESS -8.4 mmol/L (-2.0-3.0); ABG HCO3 24.6 mmol/L (21.0-28.0); ABG OXYGEN SATURATION 70.2 % (94.0-98.0); ABG PCO2 (T) 103.7 mmHg (35.0-48.0); ABG PH (T) 6.993 (7.350-7.450); ABG PO2 (T) 58.8 mmHg (83.0-108.0); ALLEN'S TEST POSITIVE; FCOHb 2.4 % (0.5-1.5); FLOW 15 L/min; FMetHb 0.2 % (0.0-1.5); FO2Hb 68.4 % (94.0-98.0); MODE MASK - NRB; TOTAL HEMOGLOBIN 11.4 G/dl (13.5-17.5)
[2023-11-07] MEDS ORDERED: fentaNYL/PF 50MCG/1 ML 2ML syringe IV PRN (17:50)
[2023-11-07] MEDS: fentaNYL/PF 50MCG/1 ML 2ML syringe ONE ×2 (17:57→17:58)
[2023-11-07] MEDS: fentaNYL/PF 50MCG/1 ML 2ML syringe IV ONE (17:58)
[2023-11-07] MEDS: rocuronium 10mg/ml inj IV ONE (18:15)
[2023-11-07] MEDS: FENTANYL-0.9 % NACL/PF 100 ML IV SCH (18:46)
[2023-11-07] MEDS: ipratropium/albuterol 3ml nebule NEB SCH (18:48)
[2023-11-07] MEDS ORDERED: labetalol 20mg/4ml (5mg/ml) syringe IV PRN (19:10)
[2023-11-07 19:19] LABS: ABG BASE EXCESS 2.5 mmol/L (-2.0-3.0); ABG HCO3 31.2 mmol/L (21.0-28.0); ABG OXYGEN SATURATION 99.7 % (94.0-98.0); ABG PCO2 (T) 73.1 mmHg (35.0-48.0); ABG PO2 (T) 202.5 mmHg (83.0-108.0); FCOHb 2.4 % (0.5-1.5); FHHb 0.3 % (0.0-5.0); FMetHb 0.3 % (0.0-1.5); MODE VENT - PRVC; PATIENT TEMPERATURE 37.3; PEEP 10 cm H2O; RESPIRATORY RATE 16 b/min; TIDAL VOLUME 450 mL; TOTAL HEMOGLOBIN 11.3 G/dl (13.5-17.5)
[2023-11-07] MEDS: PERFLUTREN PROTEIN-A MICROSPHR (Optison) 0.22 MG/ML 3ML VIAL IV ONE (19:25)
[2023-11-07] MEDS ORDERED: furosemide 40mg/4ml inj IV SCH (19:30)
[2023-11-07 19:33] LABS: APTT 30 SECONDS (22-32)
[2023-11-07 19:39] LABS: ALBUMIN 3.9 G/DL (3.4-5.0); ANION GAP 9 (8-16); BLOOD UREA NITROGEN 15 MG/DL (7-18); BUN/CREATININE RATIO 13.8 (10.0-20.0); CALCIUM 9.1 MG/DL (8.5-10.1); CHLORIDE 104 MMOL/L (99-107); CREATININE 1.09 MG/DL (0.60-1.10); GLUCOSE 262 MG/DL (70-104); POTASSIUM 3.9 MMOL/L (3.5-5.1); SODIUM 143 MMOL/L (135-145); TOTAL CARBON DIOXIDE 30.5 MMOL/L (24-32); eCRCL 56 ML/MIN; eGFR 71 ML/MIN
[2023-11-07] MEDS: propofol 1000mg/100ml bottle 100 ML IV SCH (19:42)
[2023-11-07] MEDS: furosemide 20 MG/2 ML vial IV SCH (20:00)
[2023-11-07] MEDS ORDERED: BUDESONIDE 180 MCG AER.POW.BA INH SCH (20:00)
[2023-11-07] MEDS ORDERED: non-formulary drug (Metformin HCl 1 TAB) PO SCH (20:00)
[2023-11-07] MEDS: metoprolol tartrate 50mg tablet PO SCH (20:35)
[2023-11-07] MEDS: methylPREDNISolone sod succ/PF 40mg inj. IV SCH (20:37)
[2023-11-07] MEDS: propofol 1000mg/100ml bottle 100 ML IV ONE (20:55)
[2023-11-07] MEDS: cloNIDine 0.1 mg tablet PO SCH (21:00)
[2023-11-07] MEDS: budesonide 0.5mg/2ml UD nebule IH SCH (21:26)
[2023-11-07] MEDS: iron sucrose complex injection 300 MG in normal saline 250ml IV soln 250 ML IV SCH (21:57)
[2023-11-07] MEDS: atorvastatin 10mg tablet PO SCH (21:59)
[2023-11-08] VITALS (40 sets, daily range): BP systolic 103–155; BP diastolic 59–80; PULSE 60–81; RESP 11–20; O2SAT 92–99
[2023-11-08] MEDS: insulin regular, human U-100 10ml vial - multi-dose SQ SCH ×2 (02:24→12:35)
[2023-11-08 02:37] LABS: BASOPHILS % (AUTO) 0.1 % (0-1); EOSINOPHILS % (AUTO) 0 % (0-6); LYMPHOCYTES # (AUTO) 0.5 X10'3 (1.1-4.8); LYMPHOCYTES % (AUTO) 3.8 % (21-51); MEAN PLATELET VOLUME 7.5 FL (7.4-10.4); MONOCYTES # (AUTO) 0.2 X10'3 (0-0.9); MONOCYTES % (AUTO) 1.6 % (2-12); NEUTROPHILS # (AUTO) 11.4 X10'3 (1.8-7.7); NEUTROPHILS % (AUTO) 94.5 % (42-75); PLATELET COUNT 372 X10'3 (140-440)
[2023-11-08 02:47] LABS: ALANINE AMINOTRANSFERASE 47 U/L (12-78); ALBUMIN 3.3 G/DL (3.4-5.0); ALKALINE PHOSPHATASE 58 IU/L (46-116); ANION GAP 8 (8-16); ASPARTATE AMINO TRANSFERASE 26 U/L (10-37); BILIRUBIN,TOTAL 0.5 MG/DL (0.1-1.0); BLOOD UREA NITROGEN 17 MG/DL (7-18); CALCIUM 9.1 MG/DL (8.5-10.1); CHLORIDE 107 MMOL/L (99-107); GLUCOSE 211 MG/DL (70-104); MAGNESIUM 1.9 MG/DL (1.5-2.4); PHOSPHORUS 3.6 MG/DL (2.3-4.5); POTASSIUM 4.2 MMOL/L (3.5-5.1); SODIUM 145 MMOL/L (135-145); TOTAL CARBON DIOXIDE 29.6 MMOL/L (24-32); TOTAL PROTEIN 6.6 G/DL (6.4-8.2); TRIGLYCERIDES 133 MG/DL (20-135); eCRCL 61 ML/MIN; eGFR 78 ML/MIN
[2023-11-08 02:57] LABS: APTT 72 SECONDS (22-32)
[2023-11-08 03:09] LABS: HEMOGLOBIN 8.9 g/dl (14.0-17.9); RED BLOOD COUNT 3.96 X10'6 (4.70-6.10)
[2023-11-08 03:10] LABS: HEMATOCRIT 29.5 % (42.0-52.0); MEAN CORPUSCULAR HEMOGLOBIN 22.6 PG (27.0-31.0); MEAN CORPUSCULAR HGB CONC 30.3 g/dL (33.0-36.5); MEAN CORPUSCULAR VOLUME 74.4 FL (78-98); RED CELL DISTRIBUTION WIDTH 23.2 % (11.5-14.5)
[2023-11-08] MEDS: MESSAGE TO NURSING IV ONE ×3 (03:10→17:45)
[2023-11-08 03:17] LABS: ANISOCYTOSIS 3+; HYPOCHROMASIA 1+; MICROCYTOSIS 1+; PLATELET ESTIMATE NORMAL; POLYCHROMASIA FEW; STOMATOCYTES FEW; TARGET CELLS FEW
[2023-11-08 04:22] LABS: ABG BASE EXCESS 2.8 mmol/L (-2.0-3.0); ABG HCO3 27.4 mmol/L (21.0-28.0); ABG OXYGEN SATURATION 96.7 % (94.0-98.0); ABG PCO2 (T) 43.3 mmHg (35.0-48.0); ABG PH (T) 7.421 (7.350-7.450); ABG PO2 (T) 88.2 mmHg (83.0-108.0); ALLEN'S TEST Modified; FCOHb 2.4 % (0.5-1.5); FHHb 3.2 % (0.0-5.0); FMetHb 0.2 % (0.0-1.5); FO2Hb 94.2 % (94.0-98.0); MODE VENT - PRVC; PATIENT TEMPERATURE 37.5; PEEP 10 cm H2O; RESPIRATORY RATE 18 b/min; TIDAL VOLUME 450 mL; TOTAL HEMOGLOBIN 9.5 G/dl (13.5-17.5)
[2023-11-08] MEDS ORDERED: pantoprazole 40mg Tablet.DR PO SCH (08:00)
[2023-11-08] MEDS: COMMUNICATION ORDER 1 EA MISC MC ONE (09:30)
[2023-11-08 09:44] LABS: PLATELET COUNT 316 X10'3 (140-440); WHITE BLOOD COUNT 7.7 X10'3 (4.5-11.0)
[2023-11-08] MEDS ORDERED: clopidogrel 75mg tablet OGT SCH (09:47)
[2023-11-08] MEDS ORDERED: lansoprazole 15mg solutab OGT SCH ×3 (09:50→09:53)
[2023-11-08] MEDS: ascorbic acid 500mg tablet PO SCH ×2 (09:50→12:30)
[2023-11-08] MEDS ORDERED: POTASSIUM CHLORIDE 20 MEQ/15 ML oral solution OGT SCH (09:54)
[2023-11-08] MEDS ORDERED: acetaminophen 325mg tablet OGT PRN (09:55)
[2023-11-08] MEDS ORDERED: atorvastatin 10mg tablet OGT SCH (09:56)
[2023-11-08] MEDS ORDERED: aspirin 81mg tab.chew OGT SCH (09:56)
[2023-11-08] MEDS: clopidogrel 75mg tablet OGT SCH (09:56)
[2023-11-08] MEDS ORDERED: cloNIDine 0.1 mg tablet OGT SCH (09:57)
[2023-11-08] MEDS ORDERED: ascorbic acid 500mg tablet OGT SCH ×3 (09:57→11:00)
[2023-11-08] MEDS ORDERED: mag hydrox/Alum hydrox/simeth 30ml oral suspension OGT PRN (09:57)
[2023-11-08] MEDS ORDERED: magnesium hydroxide 30ml (MOM) UD suspension OGT PRN (09:58)
[2023-11-08] MEDS: POTASSIUM CHLORIDE 20 MEQ/15 ML oral solution OGT SCH (09:58)
[2023-11-08] MEDS ORDERED: POTASSIUM CHLORIDE 20 MEQ/15 ML oral solution OGT PRN ×2 (09:59→10:00)
[2023-11-08] MEDS ORDERED: metoprolol tartrate 50mg tablet OGT SCH (09:59)
[2023-11-08 10:10] LABS: HEMATOCRIT 25.9 % (42.0-52.0); HEMOGLOBIN 7.9 g/dl (14.0-17.9); MAGNESIUM 1.8 MG/DL (1.5-2.4); MEAN CORPUSCULAR HEMOGLOBIN 22.7 PG (27.0-31.0); MEAN CORPUSCULAR HGB CONC 30.5 g/dL (33.0-36.5); MEAN CORPUSCULAR VOLUME 74.4 FL (78-98); PHOSPHORUS 3.4 MG/DL (2.3-4.5); POTASSIUM 3.3 MMOL/L (3.5-5.1); RED BLOOD COUNT 3.48 X10'6 (4.70-6.10); RED CELL DISTRIBUTION WIDTH 23.6 % (11.5-14.5)
[2023-11-08 11:04] LABS: ABG BASE EXCESS 1.7 mmol/L (-2.0-3.0); ABG HCO3 25.1 mmol/L (21.0-28.0); ABG OXYGEN SATURATION 98.1 % (94.0-98.0); ABG PCO2 (T) 34.6 mmHg (35.0-48.0); ABG PH (T) 7.479 (7.350-7.450); ABG PO2 (T) 97.4 mmHg (83.0-108.0); ALLEN'S TEST POSITIVE; FCOHb 2.2 % (0.5-1.5); FHHb 1.9 % (0.0-5.0); FMetHb 0.2 % (0.0-1.5); FO2Hb 95.7 % (94.0-98.0); MODE VENT - CPAP; TOTAL HEMOGLOBIN 9.5 G/dl (13.5-17.5)
[2023-11-08] MEDS ORDERED: atorvastatin 10mg tablet PO SCH (11:27)
[2023-11-08] MEDS ORDERED: acetaminophen 325mg tablet PO PRN (11:27)
[2023-11-08] MEDS ORDERED: mag hydrox/Alum hydrox/simeth 30ml oral suspension PO PRN (11:29)
[2023-11-08] MEDS ORDERED: POTASSIUM CHLORIDE 20 MEQ/15 ML oral solution PO SCH (11:30)
[2023-11-08] MEDS ORDERED: potassium chloride 10mEq ER tablet PO PRN (11:31)
[2023-11-08] MEDS ORDERED: potassium Cl 20 mEq SR tablet PO PRN (11:33)
[2023-11-08] MEDS: CefTRIAXone/D5W-Rocephin 1gm 50 ML IV SCH (11:37)
[2023-11-08] MEDS: HYDROchlorothiazide 25mg tablet PO SCH (11:46)
[2023-11-08] MEDS: potassium Cl 20 mEq SR tablet PO PRN (11:46)
[2023-11-08] MEDS: losartan 50mg tablet PO SCH (11:46)
[2023-11-08] MEDS: ferrous sulfate 325mg tablet PO SCH (11:47)
[2023-11-08] MEDS: AZITHROMYCIN 500 MG in NS 250ml IV.SOLN IV ONE (12:29)
[2023-11-08] MEDS: LIDOcaine 1% (10mg/ml) 2ml vial ONE (12:53)
[2023-11-08] MEDS: cloNIDine 0.1 mg tablet PO SCH (13:27)
[2023-11-08] MEDS: potassium chloride 10mEq ER tablet PO SCH (13:27)
[2023-11-08] MEDS: metoprolol tartrate 50mg tablet PO SCH (15:34)
[2023-11-08] MEDS: mineral oil/petrolatum ophthal oint EACHEYE SCH (20:00)
[2023-11-08] MEDS: atorvastatin 20mg tablet PO SCH (20:56)
[2023-11-08] MEDS: insulin glargine (Lantus) pen - multi-dose SQ SCH (22:23)
[2023-11-09] VITALS (34 sets, daily range): BP systolic 113–158; BP diastolic 60–110; PULSE 64–74; RESP 12–24; O2SAT 92–98
[2023-11-09 02:49] LABS: BASOPHILS # (AUTO) 0.1 X10'3 (0-0.2); BASOPHILS % (AUTO) 0.7 % (0-1); EOSINOPHILS % (AUTO) 0 % (0-6); HEMATOCRIT 28.1 % (42.0-52.0); HEMOGLOBIN 8.4 g/dl (14.0-17.9); LYMPHOCYTES # (AUTO) 0.5 X10'3 (1.1-4.8); LYMPHOCYTES % (AUTO) 4.8 % (21-51); MEAN CORPUSCULAR HEMOGLOBIN 22.5 PG (27.0-31.0); MEAN CORPUSCULAR HGB CONC 29.8 g/dL (33.0-36.5); MEAN CORPUSCULAR VOLUME 75.5 FL (78-98); MEAN PLATELET VOLUME 7.5 FL (7.4-10.4); MONOCYTES # (AUTO) 0.5 X10'3 (0-0.9); MONOCYTES % (AUTO) 4.3 % (2-12); NEUTROPHILS # (AUTO) 10.2 X10'3 (1.8-7.7); NEUTROPHILS % (AUTO) 90.2 % (42-75); PLATELET COUNT 376 X10'3 (140-440); RED BLOOD COUNT 3.72 X10'6 (4.70-6.10); RED CELL DISTRIBUTION WIDTH 24.4 % (11.5-14.5); WHITE BLOOD COUNT 11.3 X10'3 (4.5-11.0)
[2023-11-09 03:21] LABS: ALANINE AMINOTRANSFERASE 40 U/L (12-78); ALBUMIN 3.5 G/DL (3.4-5.0); ALBUMIN/GLOBULIN RATIO 1.1 (1.1-1.5); ALKALINE PHOSPHATASE 56 IU/L (46-116); ANION GAP 7 (8-16); ASPARTATE AMINO TRANSFERASE 13 U/L (10-37); BILIRUBIN,TOTAL 0.5 MG/DL (0.1-1.0); BLOOD UREA NITROGEN 23 MG/DL (7-18); BUN/CREATININE RATIO 26.1 (10.0-20.0); CALCIUM 9.9 MG/DL (8.5-10.1); CHLORIDE 105 MMOL/L (99-107); CREATININE 0.88 MG/DL (0.60-1.10); FREE T4 (FREE THYROXINE) 1.01 NG/DL (0.73-1.40); GLUCOSE 216 MG/DL (70-104); MAGNESIUM 2.1 MG/DL (1.5-2.4); POTASSIUM 4.1 MMOL/L (3.5-5.1); SODIUM 142 MMOL/L (135-145); THYROID STIMULATING HORMONE 0.04 ulU/ml (0.34-4.50); TOTAL CARBON DIOXIDE 29.7 MMOL/L (24-32); TOTAL PROTEIN 6.8 G/DL (6.4-8.2); eCRCL 69 ML/MIN; eGFR > 90 ML/MIN
[2023-11-09] MEDS: magnesium hydroxide 30ml (MOM) UD suspension PO PRN (10:00)
[2023-11-09] MEDS: clopidogrel 75mg tablet PO SCH (10:03)
[2023-11-09] MEDS: azithromycin 250mg tablet PO SCH (10:03)
[2023-11-09] MEDS: aspirin 81mg tab.chew PO SCH (10:03)
[2023-11-09] MEDS: pantoprazole 40mg Tablet.DR PO SCH (10:03)
[2023-11-09] MEDS: insulin regular, human U-100 10ml vial - multi-dose SQ ONE (11:06)
[2023-11-09] MEDS: enoxaparin 40mg/0.4ml syringe SUBCUT SCH (13:25)
[2023-11-09 15:21] LABS: PRO BRAIN NATRIURETIC PEPTIDE 2781 PG/ML (0-125)
[2023-11-09] MEDS: docusate sod 100mg capsule PO SCH (21:04)
[2023-11-09] MEDS: insulin glargine (Lantus) pen - multi-dose SQ SCH (21:31)
[2023-11-10] VITALS (24 sets, daily range): BP systolic 118–149; BP diastolic 60–80; PULSE 59–79; RESP 12–23; TEMP 97.8–98; O2SAT 93–98
[2023-11-10 03:24] LABS: BASOPHILS % (AUTO) 0.1 % (0-1); EOSINOPHILS % (AUTO) 0 % (0-6); LYMPHOCYTES # (AUTO) 0.7 X10'3 (1.1-4.8); LYMPHOCYTES % (AUTO) 5.5 % (21-51); MEAN PLATELET VOLUME 7.2 FL (7.4-10.4); MONOCYTES # (AUTO) 0.5 X10'3 (0-0.9); NEUTROPHILS # (AUTO) 10.9 X10'3 (1.8-7.7); NEUTROPHILS % (AUTO) 90.4 % (42-75); PLATELET COUNT 420 X10'3 (140-440)
[2023-11-10 03:40] LABS: ALANINE AMINOTRANSFERASE 45 U/L (12-78); ALBUMIN 3.6 G/DL (3.4-5.0); ALKALINE PHOSPHATASE 58 IU/L (46-116); ANION GAP 8 (8-16); ASPARTATE AMINO TRANSFERASE 16 U/L (10-37); BILIRUBIN,TOTAL 0.5 MG/DL (0.1-1.0); BLOOD UREA NITROGEN 25 MG/DL (7-18); BUN/CREATININE RATIO 24.8 (10.0-20.0); CHLORIDE 102 MMOL/L (99-107); CREATININE 1.01 MG/DL (0.60-1.10); GLUCOSE 208 MG/DL (70-104); MAGNESIUM 1.8 MG/DL (1.5-2.4); PHOSPHORUS 5.4 MG/DL (2.3-4.5); POTASSIUM 3.8 MMOL/L (3.5-5.1); SODIUM 140 MMOL/L (135-145); TOTAL CARBON DIOXIDE 29.8 MMOL/L (24-32); TOTAL PROTEIN 7.1 G/DL (6.4-8.2); eCRCL 61 ML/MIN; eGFR 78 ML/MIN
[2023-11-10 03:52] LABS: HEMATOCRIT 31.4 % (42.0-52.0); HEMOGLOBIN 9.7 g/dl (14.0-17.9); MEAN CORPUSCULAR HEMOGLOBIN 22.8 PG (27.0-31.0); MEAN CORPUSCULAR HGB CONC 30.8 g/dL (33.0-36.5); RED BLOOD COUNT 4.24 X10'6 (4.70-6.10); RED CELL DISTRIBUTION WIDTH 22.9 % (11.5-14.5)
[2023-11-11] VITALS (23 sets, daily range): BP systolic 103–136; BP diastolic 48–84; PULSE 63–76; RESP 12–22; TEMP 97.3–98.2; O2SAT 81–100
[2023-11-11 07:16] LABS: ALANINE AMINOTRANSFERASE 45 U/L (12-78); ALBUMIN 3.7 G/DL (3.4-5.0); ALBUMIN/GLOBULIN RATIO 1.1 (1.1-1.5); ALKALINE PHOSPHATASE 61 IU/L (46-116); ANION GAP 12 (8-16); ASPARTATE AMINO TRANSFERASE 11 U/L (10-37); BILIRUBIN,TOTAL 0.6 MG/DL (0.1-1.0); BLOOD UREA NITROGEN 32 MG/DL (7-18); BUN/CREATININE RATIO 28.6 (10.0-20.0); CHLORIDE 98 MMOL/L (99-107); CREATININE 1.12 MG/DL (0.60-1.10); GLUCOSE 267 MG/DL (70-104); MAGNESIUM 2.1 MG/DL (1.5-2.4); PHOSPHORUS 5.1 MG/DL (2.3-4.5); POTASSIUM 3.7 MMOL/L (3.5-5.1); SODIUM 137 MMOL/L (135-145); TOTAL CARBON DIOXIDE 26.8 MMOL/L (24-32); TOTAL PROTEIN 7.1 G/DL (6.4-8.2); eCRCL 55 ML/MIN; eGFR 69 ML/MIN
[2023-11-11 07:41] LABS: BASOPHILS % (AUTO) 0 % (0-1); EOSINOPHILS % (AUTO) 0 % (0-6); LYMPHOCYTES # (AUTO) 0.6 X10'3 (1.1-4.8); LYMPHOCYTES % (AUTO) 4.9 % (21-51); MEAN PLATELET VOLUME 7.6 FL (7.4-10.4); MONOCYTES # (AUTO) 0.5 X10'3 (0-0.9); MONOCYTES % (AUTO) 3.6 % (2-12); NEUTROPHILS # (AUTO) 11.5 X10'3 (1.8-7.7); NEUTROPHILS % (AUTO) 91.5 % (42-75); PLATELET COUNT 443 X10'3 (140-440); WHITE BLOOD COUNT 12.5 X10'3 (4.5-11.0)
[2023-11-11 07:49] LABS: HEMOGLOBIN 10.6 g/dl (14.0-17.9); MEAN CORPUSCULAR HEMOGLOBIN 23.3 PG (27.0-31.0); MEAN CORPUSCULAR HGB CONC 31.2 g/dL (33.0-36.5); MEAN CORPUSCULAR VOLUME 74.9 FL (78-98); RED BLOOD COUNT 4.54 X10'6 (4.70-6.10); RED CELL DISTRIBUTION WIDTH 23.5 % (11.5-14.5)
[2023-11-11 09:00] LABS: ANISOCYTOSIS 3+; MICROCYTOSIS 1+; PLATELET ESTIMATE INCREASED; POLYCHROMASIA 1+
[2023-11-11 09:01] LABS: ELLIPTOCYTES FEW
[2023-11-11] MEDS ORDERED: dextrose 50%-water 50ml dispensing syringe IV PRN ×2 (10:50)
[2023-11-11] MEDS ORDERED: glucagon, human recombinant 1mg kit SUBCUT PRN (10:50)
[2023-11-11] MEDS ORDERED: DEXTROSE 15 GM of carb/4 tabs (each vial/BOTTLE has 4 tablets) PO PRN ×2 (10:50)
[2023-11-11] MEDS: INSULIN LISPRO 100 UNIT/ML INSULN.PEN MULTI-DOSE SQ SCH (12:34)
[2023-11-11] MEDS ORDERED: iohexol 350 MG/ML 50ML vial IV ONE (14:28)
[2023-11-11] MEDS ORDERED: diphenhydrAMINE 50 mg/ml inj ONE (14:28)
[2023-11-11] MEDS ORDERED: LIDOcaine 1% (10mg/ml) 2ml vial ONE (14:28)
[2023-11-11] MEDS ORDERED: verapamil 2.5 mg/ml inj IV ONE (14:28)
[2023-11-11] MEDS ORDERED: midazolam 1 mg/ML 2ml injection ONE ×2 (14:28→16:02)
[2023-11-11] MEDS ORDERED: hydrocortisone sod succ/PF 100mg/2ml inj. ONE (14:28)
[2023-11-11] MEDS ORDERED: iohexol 350MG/ML 100ml bottle IV ONE ×2 (14:28→16:44)
[2023-11-11] MEDS ORDERED: heparin 1,000unit/ml 10ml vial 10 ML ONE (14:32)
[2023-11-11] MEDS ORDERED: nitroGLYCERIN 500mcg/5mL D5W 5 ML IV ONE (14:33)
[2023-11-11] MEDS ORDERED: fentaNYL/PF 50MCG/1 ML 2ML syringe ONE (14:34)
[2023-11-11] MEDS ORDERED: clopidogrel 300mg tablet ONE (17:22)
[2023-11-12] VITALS (8 sets, daily range): BP systolic 111–112; BP diastolic 63–67; PULSE 61–73; RESP 16–22; TEMP 97.2–97.5; O2SAT 96–100
[2023-11-12] MEDS ORDERED: FER325T PO (11:02)
[2023-11-12] MEDS ORDERED: CLOP75TA34 PO (11:02)
[2023-11-12] MEDS ORDERED: LOSA50TA64 PO (11:02)
[2023-11-12] MEDS ORDERED: CARV-50 PO (11:02)
[2023-11-12] MEDS ORDERED: ASPI-1071 PO (11:02)
[2023-11-12] MEDS ORDERED: ATOR20TA66 PO (11:02)
[2023-11-12] MEDS ORDERED: AMLO10TA13 PO (11:02)
[2023-11-12] MEDS ORDERED: CLON0.1T2 PO (11:02)
[2023-11-12] MEDS ORDERED: DAPA5TAB PO (11:02)
[2023-11-12] MEDS ORDERED: FURO20TA4 PO (11:02)
== END 2023-11-12 14:20 | disposition home or self-care (01) | DRG 174 ==
LOC: ER 01:27 → UNDOADMIN 04:22 → ED HOLD 04:22 → CICU 2S 05:49 → PCU 3S 21:00 → CICU 2S 11-07 17:31 → PCU 3S 11-10 11:30
PROVIDERS: ADMIT Surgery Surgical Critical Care; ATTEND Surgery Surgical Critical Care
PROC: 03HY32Z Insertion of Monitoring Device into Upper Artery, Percutaneous Approach (ICD-10-PCS; principal; 2023-11-06)
PROC: 5A12012 Performance of Cardiac Output, Single, Manual (ICD-10-PCS; 2023-11-06)
PROC: 5A1935Z Respiratory Ventilation, Less than 24 Consecutive Hours (ICD-10-PCS; 2023-11-06)
PROC: 05H533Z Insertion of Infusion Device into Right Subclavian Vein, Percutaneous Approach (ICD-10-PCS; 2023-11-06)
PROC: 0BH17EZ Insertion of Endotracheal Airway into Trachea, Via Natural or Artificial Opening (ICD-10-PCS; 2023-11-06)
PROC: 5A1935Z Respiratory Ventilation, Less than 24 Consecutive Hours (ICD-10-PCS; 2023-11-07)
PROC: 0BH17EZ Insertion of Endotracheal Airway into Trachea, Via Natural or Artificial Opening (ICD-10-PCS; 2023-11-07)
PROC: 05HY33Z Insertion of Infusion Device into Upper Vein, Percutaneous Approach (ICD-10-PCS; 2023-11-08)
PROC: B51M1ZA Fluoroscopy of Right Upper Extremity Veins using Low Osmolar Contrast, Guidance (ICD-10-PCS; 2023-11-08)
PROC: 027035Z Dilation of Coronary Artery, One Artery with Two Drug-eluting Intraluminal Devices, Percutaneous Approach (ICD-10-PCS; 2023-11-11)
PROC: 4A023N7 Measurement of Cardiac Sampling and Pressure, Left Heart, Percutaneous Approach (ICD-10-PCS; 2023-11-11)
PROC: B2151ZZ Fluoroscopy of Left Heart using Low Osmolar Contrast (ICD-10-PCS; 2023-11-11)
PROC: B2111ZZ Fluoroscopy of Multiple Coronary Arteries using Low Osmolar Contrast (ICD-10-PCS; 2023-11-11)
DX: I21.4 Non-ST elevation (NSTEMI) myocardial infarction (principal); J96.01 Acute respiratory failure with hypoxia; I46.9 Cardiac arrest, cause unspecified; I50.33 Acute on chronic diastolic (congestive) heart failure; E87.3 Alkalosis; E87.29 Other acidosis; E11.9 Type 2 diabetes mellitus without complications; D50.8 Other iron deficiency anemias; E03.8 Other specified hypothyroidism; E78.00 Pure hypercholesterolemia, unspecified; F41.9 Anxiety disorder, unspecified; J44.1 Chronic obstructive pulmonary disease with (acute) exacerbation; J96.02 Acute respiratory failure with hypercapnia; I11.0 Hypertensive heart disease with heart failure; I25.10 Atherosclerotic heart disease of native coronary artery without angina pectoris; I25.2 Old myocardial infarction; Z88.8 Allergy status to other drugs, medicaments and biological substances; Z79.82 Long term (current) use of aspirin; Z79.899 Other long term (current) drug therapy; Z79.4 Long term (current) use of insulin; Z79.84 Long term (current) use of oral hypoglycemic drugs; Z98.61 Coronary angioplasty status; Z87.891 Personal history of nicotine dependence
CPT/HCPCS: 36415; 36600; 71045; 80048; 80053; 80305; 81001; 82088; 82728; 82803; 82948; 83036; 83540; 83550; 83605; 83735; 83880; 84100; 84132; 84145; 84244; 84439; 84443; 84466; 84478; 84484; 85008; 85018; 85025; 85027; 85610; 85730; 87070; 87081; 92508; 92616; 92921; 93005; 93308; 93458; 93975; 94002; 94003; 94640; 94668; 94760; 94799; 96365; 96375; 99152; 99153; 99291; A4314; A4333; A4615; A6258; A6402; A6449; A7015; A9900; C1725; C1751; C1769; C1874; C1894; C9600; G0378; J0171; J0456; J0696; J1200; J1644; J1650; J1720; J1756; J1815; J1940; J2250; J2270; J2543; J2704; J2919; J3010; J3480; J3490; J7030; J7040; J7050; Q9967

== ENCOUNTER 2023-12-26 06:59 | Day surgery (SDC) | payer MEDICAID ==
[~2023-12-26] VITALS: Ht 165.1 cm; Wt 81.3 kg
[2023-12-26] VITALS (10 sets, daily range): BP systolic 108–130; BP diastolic 69–83; PULSE 75–83; RESP 10–19; TEMP 98.4; O2SAT 92–97
[~2023-12-26 06:59] MED LIST changes: +ATOR20TA66 PO; -CLON0.1T2 PO; +FER325T PO; -FERR28TA PO; -HYDR25TA4 PO; +NOVLG SQ
[2023-12-26 08:05] LABS: BASOPHILS % (AUTO) 0.5 % (0-1); EOSINOPHILS # (AUTO) 0.4 X10'3 (0-0.9); EOSINOPHILS % (AUTO) 4.9 % (0-6); HEMATOCRIT 43.9 % (42.0-52.0); HEMOGLOBIN 14.3 g/dl (14.0-17.9); LYMPHOCYTES # (AUTO) 1.8 X10'3 (1.1-4.8); LYMPHOCYTES % (AUTO) 20.8 % (21-51); MEAN CORPUSCULAR HEMOGLOBIN 28.4 PG (27.0-31.0); MEAN CORPUSCULAR HGB CONC 32.4 g/dL (33.0-36.5); MEAN CORPUSCULAR VOLUME 87.6 FL (78-98); MEAN PLATELET VOLUME 6.9 FL (7.4-10.4); MONOCYTES # (AUTO) 0.5 X10'3 (0-0.9); MONOCYTES % (AUTO) 6.1 % (2-12); NEUTROPHILS # (AUTO) 5.7 X10'3 (1.8-7.7); NEUTROPHILS % (AUTO) 67.7 % (42-75); PLATELET COUNT 246 X10'3 (140-440); RED BLOOD COUNT 5.02 X10'6 (4.70-6.10); RED CELL DISTRIBUTION WIDTH 23.9 % (11.5-14.5); WHITE BLOOD COUNT 8.4 X10'3 (4.5-11.0)
[2023-12-26 08:16] LABS: PROTHROMBIN TIME 9.4 SECONDS (9.0-12.0)
[2023-12-26 08:25] LABS: ALBUMIN 4.1 G/DL (3.4-5.0); ANION GAP 11 (8-16); BLOOD UREA NITROGEN 5 MG/DL (7-18); BUN/CREATININE RATIO 4.4 (10.0-20.0); CALCIUM 8.8 MG/DL (8.5-10.1); CHLORIDE 95 MMOL/L (99-107); CREATININE 1.13 MG/DL (0.60-1.10); POTASSIUM 3.5 MMOL/L (3.5-5.1); SODIUM 135 MMOL/L (135-145); TOTAL CARBON DIOXIDE 28.7 MMOL/L (24-32); eCRCL 66 ML/MIN; eGFR 68 ML/MIN
[2023-12-26 08:31] LABS: GLUCOSE 423 MG/DL (70-104)
[2023-12-26 08:34] LABS: INR 0.9 INR
[2023-12-26 08:51] LABS: ANISOCYTOSIS 3+; PLATELET ESTIMATE NORMAL
[2023-12-26] MEDS ORDERED: CLOP75TA34 PO (08:51)
[2023-12-26] MEDS ORDERED: ASPI-1397 PO (08:51)
[2023-12-26] MEDS ORDERED: ASCO500T8 PO (08:51)
[2023-12-26 08:52] LABS: ELLIPTOCYTES FEW; HYPOCHROMASIA 1+; STOMATOCYTES FEW
[2023-12-26] MEDS ORDERED: ATOR-2 PO (08:57)
[2023-12-26] MEDS ORDERED: CARV-50 PO (08:57)
[2023-12-26] MEDS ORDERED: FERR325T28 PO (09:04)
[2023-12-26] MEDS ORDERED: DAPA5TAB PO (09:04)
[2023-12-26] MEDS ORDERED: FURO-150 PO (09:04)
[2023-12-26] MEDS ORDERED: GABA-530 PO (09:09)
[2023-12-26] MEDS ORDERED: LOSA-415 PO (09:09)
[2023-12-26] MEDS ORDERED: TIRZ5PEN SUBCUT (09:17)
[2023-12-26] MEDS ORDERED: LOVA20TA2 PO (09:17)
[2023-12-26] MEDS ORDERED: POTA-205 PO (09:19)
[2023-12-26] MEDS: normal saline 1,000 ML IV SCH (09:47)
[2023-12-26] MEDS: diphenhydrAMINE 25mg capsule PO PRN (09:48)
[2023-12-26] MEDS: sodium bicarbonate 1meq/ml syr 150 ML in dextrose 5%-water 1,000 ML IV ONE (09:48)
[2023-12-26] MEDS: hydrocortisone sod succ/PF 100mg/2ml inj. IV ONE (09:48)
[2023-12-26] MEDS: insulin regular, human 10 units/0.1 ml syringe IV ONE (09:50)
[2023-12-26] MEDS ORDERED: verapamil 2.5 mg/ml inj IV ONE (10:16)
[2023-12-26] MEDS ORDERED: LIDOcaine 1% (10mg/ml) 2ml vial ONE (10:16)
[2023-12-26] MEDS ORDERED: fentaNYL/PF 50MCG/1 ML 2ML syringe ONE (10:16)
[2023-12-26] MEDS ORDERED: heparin 1,000unit/ml 10ml vial 10 ML ONE (10:17)
[2023-12-26] MEDS ORDERED: iohexol 350 MG/ML 50ML vial IV ONE (10:17)
[2023-12-26] MEDS ORDERED: midazolam 1 mg/ML 2ml injection ONE ×2 (10:17→10:56)
[2023-12-26] MEDS ORDERED: iohexol 350MG/ML 100ml bottle IV ONE (10:17)
[2023-12-26] MEDS ORDERED: LIDOcaine 1% 30ml preserv. free vial ONE (11:24)
[2023-12-26] MEDS ORDERED: ondansetron/PF 4mg/2ml inj IV PRN (12:35)
[2023-12-26] MEDS ORDERED: normal saline 1000ml 1,000 ML IV SCH (12:35)
[2023-12-26] MEDS ORDERED: HYDROcodone/acetaminophen 5mg/325mg tablet PO PRN (12:45)
[2023-12-26] MEDS ORDERED: HYDROcodone/acetaminophen 10/325mg tab PO PRN (12:45)
[2023-12-26] MEDS ORDERED: proCHLORperazine 10 MG/2 ml inj IV PRN (12:45)
[2023-12-26] MEDS: FLU VACC TS2024-25(6MOS UP)/PF 45 MCG/0.5 ML SYRINGE IMVAC ONE (13:32)
[2023-12-26] MEDS: pneumococcal 23-VAL P-sac vacc 25 mcg/0.5ml vial IMVAC ONE (13:34)
[2023-12-26] MEDS ORDERED: PANT-47 PO ×2 (14:06→14:11)
== END 2023-12-26 14:50 | disposition home or self-care (01) ==
LOC: SSTAY O 06:59
PROVIDERS: ATTEND Internal Medicine Cardiovascular Disease
DX: I25.119 Atherosclerotic heart disease of native coronary artery with unspecified angina pectoris (principal); R94.31 Abnormal electrocardiogram [ECG] [EKG]; I11.0 Hypertensive heart disease with heart failure; I50.9 Heart failure, unspecified; E78.5 Hyperlipidemia, unspecified; J44.9 Chronic obstructive pulmonary disease, unspecified; I25.2 Old myocardial infarction; Z23 Encounter for immunization; Z91.041 Radiographic dye allergy status
CPT/HCPCS: 80048; 82948; 83735; 85025; 85610; 90471; 90472; 90686; 90732; 93005; 93460; 99152; 99153; A6258; J1644; J1720; J1815; J2250; J3010; J3490; J7030; J7070; Q0163; Q9967; A6402; A6449; C1751; C1769; C1894

== ENCOUNTER 2024-03-01 10:19 | Outpatient (CLI) | payer MEDICAID ==
[~2024-03-01 10:19] MED LIST changes: -ASCO-134 PO; +ASCO500T8 PO; -ASPI-1071 PO; +ASPI-1397 PO; +ATOR-2 PO; -ATOR20TA66 PO; -FER325T PO; +FERR325T28 PO; +FURO-150 PO; -FURO20TA4 PO; +LOSA-415 PO; -LOSA50TA64 PO; +LOVA20TA2 PO; -LOVA40TA2 PO; -METF-438 PO; +PANT-47 PO; +POTA-205 PO; -POTA10CA95 PO; +TIRZ5PEN SUBCUT
== END 2024-03-01 23:59 | disposition home or self-care (01) ==
LOC: MRI02 10:19
PROVIDERS: ATTEND Physical Medicine & Rehabilitation
DX: M51.17 Intervertebral disc disorders with radiculopathy, lumbosacral region (principal); M48.07 Spinal stenosis, lumbosacral region; M25.78 Osteophyte, vertebrae; M54.50 Low back pain, unspecified; M79.672 Pain in left foot; E88.2 Lipomatosis, not elsewhere classified
CPT/HCPCS: 72148

== ENCOUNTER 2024-07-27 08:01 | Inpatient (IN) | payer MEDICAID ==
[~2024-07-27] VITALS: Ht 165.1 cm; Wt 79.9 kg
[~2024-07-27 08:01] MED LIST changes: +AMOX-580 PO; -CARV-50 PO; +CARV25TA2 PO; +CITA-178 PO; -CITA20TA28 PO; -DAPA5TAB PO; -FURO-150 PO; +FURO20TA4 PO; +HYDR-3972 PO; -LOVA20TA2 PO; -OMEP20CA16 PO; -TIRZ5PEN SUBCUT; +TIRZ7.5P SQ
[2024-07-27 09:20] LABS: ALBUMIN 3.2 G/DL (3.4-5.0); ANION GAP 8 (8-16); BLOOD UREA NITROGEN 4 MG/DL (7-18); BUN/CREATININE RATIO 4.1 (10.0-20.0); CALCIUM 9.2 MG/DL (8.5-10.1); CHLORIDE 100 MMOL/L (99-107); CREATININE 0.98 MG/DL (0.60-1.10); GLUCOSE 137 MG/DL (70-104); SODIUM 136 MMOL/L (135-145); TOTAL CARBON DIOXIDE 27.7 MMOL/L (24-32); eCRCL 76 ML/MIN; eGFR 80 ML/MIN
[2024-07-27 09:34] LABS: BASOPHILS % (AUTO) 0.3 % (0-1); EOSINOPHILS # (AUTO) 0.2 X10'3 (0-0.9); EOSINOPHILS % (AUTO) 1.3 % (0-6); HEMATOCRIT 35.9 % (42.0-52.0); HEMOGLOBIN 11.7 g/dl (14.0-17.9); LYMPHOCYTES # (AUTO) 1.3 X10'3 (1.1-4.8); LYMPHOCYTES % (AUTO) 8.7 % (21-51); MEAN CORPUSCULAR HEMOGLOBIN 28.8 PG (27.0-31.0); MEAN CORPUSCULAR HGB CONC 32.6 g/dL (33.0-36.5); MEAN CORPUSCULAR VOLUME 88.3 FL (78-98); MEAN PLATELET VOLUME 7.8 FL (7.4-10.4); MONOCYTES # (AUTO) 1.5 X10'3 (0-0.9); MONOCYTES % (AUTO) 10.6 % (2-12); NEUTROPHILS # (AUTO) 11.4 X10'3 (1.8-7.7); NEUTROPHILS % (AUTO) 79.1 % (42-75); PLATELET COUNT 469 X10'3 (140-440); RED BLOOD COUNT 4.06 X10'6 (4.70-6.10); RED CELL DISTRIBUTION WIDTH 14.7 % (11.5-14.5); WHITE BLOOD COUNT 14.5 X10'3 (4.5-11.0)
--- NOTE | 2024-07-27 10:14 | Physician Documentation ---
History of Present Illness ~ General Chief Complaint: Post-operative complication Stated Complaint: POST OP COMPLICATIONS Time Seen by MD: 10:07 Primary Medical Doctor: DR. JUAN ROSS History of Present Illness Initial Comments 53-year-old male history of diabetes mellitus presenting for foot pain discoloration and swelling increasing from recent puncture wound. He was seen in our emergency department last week and found to have rosoce nail embedded in his foot. He went to the OR and had foreign body removal and washout and was discharged on Augmentin. He reports that over the last several days she has had increasing discoloration redness and erythema tracking up his dorsal foot as well as pain. He has also developed a new area of redness in the interspace of the 3/4 toe Medication Reconciliation Allergies: Coded Allergies: iodine (Verified Allergy, Severe, 10/24/23) Per patient "Cardiac Arrest" when he received iodine Uncoded Allergies: CONTRAST DYE (Allergy, Unknown, 12/26/23) Scheduled Amlodipine Besylate (Amlodipine Besylate), 1 TAB PO DAILY Amox Tr/Potassium Clavulanate 875/125 MG (Augmentin 875/125 MG), 1 TAB PO BID Ascorbic Acid (Ascorbic Acid), 1 TAB PO DAILY, (Reported) Aspirin (Aspirin EC), 1 TAB PO DAILY, (Reported) Atorvastatin Calcium (Atorvastatin Calcium), 1 TAB PO DAILY, (Reported) Carvedilol (Carvedilol), 1 TAB PO DAILY, (Reported) Citalopram Hydrobromide* (Celexa*), 1 TAB PO DAILY, (Reported) Clopidogrel Bisulfate (Clopidogrel), 1 TAB PO DAILY, (Reported) Ferrous Sulfate* (Ferrous Sulfate*), 1 TAB PO TID, (Reported) Furosemide (Furosemide), 1 TAB PO BID, (Reported) Gabapentin (Gabapentin), 1 CAP PO Q8H, (Reported) Insulin Aspart (Novolog), 4 UNITS SQ TIDAC, (Reported) Insulin Glargine,Hum.rec.anlog (Basaglar Kwikpen U-100), 70 UNITS SUBCUT DAILY, (Reported) Losartan Potassium* (Cozaar*), 2 TAB PO DAILY, (Reported) Pantoprazole Sodium (PROTONIX tablet), 1 TAB PO DAILY Potassium Chloride (Potassium Chloride), 1 TAB PO TID, (Reported) Tirzepatide (Mounjaro), 7.5 MG SQ Q7D, (Reported) Scheduled PRN Hydrocodone Bit/Acetaminophen (Hydrocodon-Acetaminophn 10-325 tablet), 1 EACH PO Q6H PRN for severe pain (7-10) Ipratropium/Albuterol Sulfate (Combivent Respimat Inhal [place]), 1 PUFF IH Q6H PRN for SOB or wheezing, (Reported) Nitroglycerin (Nitroglycerin), 1 TAB SL PRN PRN for chest pain Discontinued Medications Lovastatin* (Mevacor*), 2 TAB PO DAILY, (Reported) Omeprazole (Omeprazole), 1 CAP PO DAILY, (Reported) Past Medical History Past Medical History: *CARDIOVASCULAR*, Angina, Coronary Artery Disease, Congestive Heart Failure, High Cholesterol, Hypertension, Myocardial Infarction, Asthma, Pneumonia, Diabetes, Anxiety Past Surgical History: angioplasty Patient History: (CAD) Coronary arteriosclerosis FATHER, , Age: 70, Cause: CHF (congestive heart failure) (30's) Siblings Siblings Siblings (DM Type 2) Diabetes mellitus type 2 MOTHER, , Age: 63, Cause: DM complication Siblings Siblings Siblings Other Past Family History: NONCONTRIBUTORY Alcohol Use: None Drug Use: none Lives with: Other Lives In: Home Occupation: employed Review of Systems All Other Systems at this time: Reviewed and Negative Constitutional: Reports: chills; Denies: fever Cardiovascular: Denies: chest pain Gastrointestinal: Denies: abdominal pain Physical Exam Physical Exam Vital Signs: RN Vital Signs have been reviewed: Yes, Temperature: 98.3, Heart Rate: 83, Respiratory Rate: 18, BP: 151/89, Pulse Oximetry: 98, Weight: 77.050 Oxygen Flow Rate: 0 Physical Exam Well-appearing no distress resting comfortably in bed No JVD Moist mucous membranes Pulmonary clear to auscultation bilaterally Cardiac no murmur Abdomen is soft nontender Left foot wound with purulent discharge, malodorous, macerated skin between 3-4 interspace. Dorsal erythema and swelling. Progress Progress Note Reviewed discharge summary cellulitis, diabetes, foreign body underwent foreign body removal in the OR with Dr. Escalante. Discharge summary notes it was likely a finishing nail. His course was complicated by flash pulmonary edema requiring intubation. Ultimately he was discharged on Augmentin Consulted hospitalist who agrees with management plan and graciously accept for admission Results/Orders Reviewed/noted all lab results: Yes Results/Orders Orders - GINA DAMON MD Culture Body Fluid Order (07/27/24 ) Piperacillin/Tazo 4.5gm/100ml (Zosyn 4.5 (07/27/24 10:29) Foot, Complete (3vw Min) (07/27/24 10:26) Vancomycin/Ns 1 Gm Add-[place] (Vancomyc (07/27/24 10:35) Page Hospitalist (07/27/24 10:57) Fill Out Med Reconciliation (07/27/24 10:57) Completed Orders - GINA DAMON MD Cbc/Diff (07/27/24 08:21) Procalcitonin (07/27/24 08:21) BMP (07/27/24 08:21) ESR (07/27/24 10:17) Vancomycin*Pharmacy To Dose* (Vancomycin (07/27/24 10:25) Foot, Complete (3vw Min) (07/27/24 10:26) C-Reactive Protein (07/27/24 08:51) Medications Received in ER Medications (Trade) Dose Ordered Sig/Melony Route PRN Reason Start Time Stop Time Status Last Admin Dose Admin Vancomycin HCl 250 ml @ 166 mls/hr ONCE ONCE IV 07/27/24 10:35 07/27/24 12:05 07/27/24 11:10 166 MLS/HR Vital Signs 07/27/24 07/27/24 08:18 10:16 Temp 98.3 Pulse 83 84 Resp 18 16 B/P (MAP) 151/89 143/79 (100) Pulse Ox 98 100 O2 Flow Rate 0 Laboratory Tests Test 07/27/24 08:51 White Blood Count 14.5 H Red Blood Count 4.06 L Hemoglobin 11.7 L Hematocrit 35.9 L Mean Corpuscular Volume 88.3 Mean Corpuscular Hemoglobin 28.8 Mean Corpuscular Hemoglobin Concent 32.6 L Red Cell Distribution Width 14.7 H Platelet Count 469 H Mean Platelet Volume 7.8 Neutrophils (%) (Auto) 79.1 H Lymphocytes (%) (Auto) 8.7 L Monocytes (%) (Auto) 10.6 Eosinophils (%) (Auto) 1.3 Basophils (%) (Auto) 0.3 Neutrophils # (Auto) 11.4 H Lymphocytes # (Auto) 1.3 Monocytes # (Auto) 1.5 H Eosinophils # (Auto) 0.2 Basophils # (Auto) 0.0 CBC Comment Erythrocyte Sedimentation Rate 82 H Sodium Level 136 Potassium Level 4.0 Chloride Level 100 Carbon Dioxide Level 27.7 Anion Gap 8 Blood Urea Nitrogen 4 L Creatinine 0.98 Estimated GFR/1.73 m2 80 BUN/Creatinine Ratio 4.1 L Glucose Level 137 H Calcium Level 9.2 C-Reactive Protein 9.45 H Albumin 3.2 L Procalcitonin 0.11 Chemistry Comments Re-Evaluation Re-Evaluation : Progress Independent interpretation of labs show persistent leukocytosis 14.5 up from 14.1 on July 22 BMP unremarkable EKG/XRAY/CT/US/VASC/MRI Bone/Soft Tissue X-Ray (Ext.) : Additional Comment X-ray independently interpreted by myself shows no retained foreign body, no osteomyelitis, soft tissue swelling Medical Decision Making Additional info obtained from: old records Findings Discharge summary Differential Diagnosis Retained foreign body, cellulitis, abscess Departure Disposition: ADMITTED INPATIENT Admitted to Inpatient Unit: to hospitalist Impression: Primary Impression: Diabetic foot infection Referrals: NO PRIMARY CARE PROVIDER (PCP) Signature Scribe Signature: na Attestation: GINA Murphy MD July 27, 2024 10:14
[2024-07-27 10:43] LABS: C-REACTIVE PROTEIN 9.45 MG/DL (0.0-0.5)
--- NOTE | 2024-07-27 10:56 | RADIOLOGY REPORT ---
CLINICAL INDICATION: foot infection TECHNIQUE: Left DI FOOT, COMPLETE (3VW MIN) Comparison: DI FOOT, COMPLETE (3VW MIN) on DOS: 07/19/24 FINDINGS/IMPRESSION: : There is no evidence of acute fracture or dislocation. Diffuse soft-tissue swelling of the distal foot. Degenerative spurring of the calcaneus.
[2024-07-27] MEDS: vancomycin/NS 1 GM ADD-VANTAGE 250 ML X 1 DOSE IV ONE (11:10)
[2024-07-27] MEDS ORDERED: morphine 2 MG/ML inj. syringe IV PRN (11:20)
[2024-07-27] MEDS ORDERED: potassium Cl 20 mEq SR tablet PO PRN (11:20)
[2024-07-27] MEDS ORDERED: magnesium Cl slow-release 64mg tablet PO PRN (11:20)
[2024-07-27] MEDS ORDERED: docusate sod 100mg capsule PO PRN (11:20)
[2024-07-27] MEDS ORDERED: potassium Cl 40MEQ/1/2NS 520ml 520 ML IV PRN (11:20)
[2024-07-27] MEDS ORDERED: mag hydrox/Alum hydrox/simeth 30ml oral suspension PO PRN (11:20)
[2024-07-27] MEDS ORDERED: acetaminophen 325mg tablet PO PRN (11:20)
[2024-07-27] MEDS ORDERED: magnesium hydroxide 30ml (MOM) UD suspension PO PRN (11:20)
[2024-07-27] MEDS ORDERED: magnesium sulf-water 2g/50mL 50 ML IV PRN (11:20)
[2024-07-27] MEDS ORDERED: magnesium sulf-water 4G/100mL 100 ML IV PRN (11:20)
[2024-07-27 11:52] LABS: MAGNESIUM 1.8 MG/DL (1.5-2.4)
[2024-07-27 12:44] LABS: APTT 27 SECONDS (22-32); PROTHROMBIN TIME 10.4 SECONDS (9.0-12.0)
[2024-07-27] MEDS: piperacillin/tazo 4.5gm/100ml 100 ML IV ONE (13:27)
--- NOTE | 2024-07-27 13:58 | HISTORY AND PHYSICAL-Residence ---
History & Physical Providers to CC Resident Creating Document: SAMANTHAMIL, RITA ~ History of Present Illness Primary Medical Doctor: DR. JUAN ROSS Reason for Admit\\Complaint: post op complicated left foot cellulitis History of Present Illness A 53 years old male with past medical history of CAD, s/p cardiac stent, history of RI, CHFrEF 30%, T2 DM, HTN, HLD, peripheral neuropathy, asthma/COPD who recently was hospitalized here for removal of foreign body/nail metal a week ago presented with the progressive swollen and painful post operated site on the left foot. He endorsed that he might have stepped on the nail with his neuropathic numbness left foot two weeks ago but he did not noticed any changes because of his neuropathic left foot. He went to grinder set up operator thread appointment last Tuesday and he ordered imaging but ended up to the ER found that he has a metal/ nail in between of his left 3rd and 4th interspace. He only noticed about the redness and swelling at the that time. He underwent the roscoe nail embedded surgery in his left foot which was complicated with the NSTEMI what demanded him to be placed in ICU. Last Tuesday, he was released with Oral Augmentin on discharge but he could not manage to take PO ABx and found that he has been having the progressive pain on steps and redness with the swollen over his left foot. He is using the walker or crutches for ambulation. He has received the tetanus shot on the last admission. He denied any discoloration with black or foul smelling discharge. Allergies: Coded Allergies: iodine (Verified Allergy, Severe, 10/24/23) Per patient "Cardiac Arrest" when he received iodine Uncoded Allergies: CONTRAST DYE (Allergy, Unknown, 12/26/23) Home Medications Home Medications Active Hydrocodon-Acetaminophn 10-325 tablet (Acetaminophen/Hydrocodone Bitart) 10mg- 325mg Tablet 1 Each PO Q6H PRN Augmentin 875/125 MG (Amoxicillin/Clavulanate Potassium) 875 Mg-125 Mg Tablet 1 Tab PO BID Nitroglycerin 0.4 Mg Tab.subl 1 Tab SL PRN PRN Take one tablet every 5 minutes PRN chest pain if you require a 3rd tablet come to the ED tamiko. PROTONIX tablet (Pantoprazole Sodium) 40 Mg Tablet.dr 1 Tab PO DAILY 30 Days Amlodipine Besylate 10 Mg Tablet 1 Tab PO DAILY 30 Days Reported Furosemide 20 Mg Tablet 1 Tab PO BID Mounjaro (Tirzepatide) 7.5 Mg/0.5 Ml Pen.injctr 7.5 Mg SQ Q7D Carvedilol 25 Mg Tablet 1 Tab PO DAILY Potassium Chloride 10 Meq Tab.prt.sr 1 Tab PO TID 30 Days Cozaar* (Losartan Potassium) 25 Mg Tablet 2 Tab PO DAILY 30 Days Gabapentin 100 Mg Capsule 1 Cap PO Q8H 30 Days Ferrous Sulfate* (Ferrous Sulfate) 325 Mg Tablet 1 Tab PO TID Atorvastatin Calcium 80 Mg Tablet 1 Tab PO DAILY Basaglar Kwikpen U-100 (Insulin Glargine,Hum.rec.anlog) 100 Unit/Ml (3 Ml) Insuln.pen 70 Units SUBCUT DAILY Clopidogrel (Clopidogrel Bisulfate) 75 Mg Tablet 1 Tab PO DAILY 30 Days Do not stop medication unless instructed by prescriber. Aspirin EC (Aspirin) 81 Mg Tablet.dr 1 Tab PO DAILY 30 Days Ascorbic Acid 500 Mg Tab.chew 1 Tab PO DAILY Novolog (Insulin Aspart) 100 Unit/Ml (3 Ml) Insuln.pen 4 Units SQ TIDAC Combivent Respimat Inhal [place] (Albuterol/Ipratropium) 20 Mcg-100 Mcg/Actuation Aer.w.adap 1 Puff IH Q6H PRN Celexa* (Citalopram Hydrobromide) 20 Mg Tablet 1 Tab PO DAILY Past Medical History Past Medical History CAD, s/p cardiac stent, history of RI, CHFrEF 30%, T2 DM, HTN, HLD, peripheral neuropathy, asthma/COPD Past Surgical History Surgical History Comment removal of foreign body/nail metal a week ago Family History Family History: (CAD) Coronary arteriosclerosis FATHER, , Age: 70, Cause: CHF (congestive heart failure) (30's) Siblings Siblings Siblings (DM Type 2) Diabetes mellitus type 2 MOTHER, , Age: 63, Cause: DM complication Siblings Siblings Siblings Past Social History Social History Comment He lives alone, does not have any help, he usually has to use walker/crutches for ambulation purposes. He used to smoke a pack of cigarettes per day for 20 years, quit last 3-4 months ago He quit drinking for a long time He denies using any illicit drugs His PCP is in [facility] [address] Day Smoking: Cigarettes, Less than 1 pack/day Alcohol Use: None Drug Use: None Lives with: Other Lives In: Home Occupation: employed ROS All Other Systems: Reviewed and Negative ROS Hours were review, WNL except for the exam mentioned in the HPI Constitutional: Reports: chills; Denies: fever Cardiovascular: Denies: chest pain Gastrointestinal: Denies: abdominal pain Exam Vitals: Vital Signs Date Time Temp Pulse Resp B/P (MAP) Pulse Ox O2 Delivery O2 Flow Rate FiO2 07/27/24 13:29 95 16 127/64 (85) 97 07/27/24 08:18 98.3 0 General: General: Well alert, well oriented, not confused, not agitated, not in acute distress, well cooperated during the physical. HEENT: HEENT: Conjunctive are pink, sclerae clear, no icterus, pupil is equal in both sides, reactive to light, no ear discharge, no pharyngeal erythema or an edema, mouth and lips are moist. Neck: Neck: Supple, no JVD, no lymphadenopathy and thyromegaly. Chest: Lungs:Equal air entry on both lungs, no additional sounds Cardiovascular: Heart: S1-S2 regular sinus rhythm and, regular rate, no gallops, no rubs, no murmurs Abdomen: Abdomen: No visible peristalsis, Bowel sounds present on auscultation, soft, nontender, no guarding, no rigidity Extremities: Extremities: No obvious deformities, no pitting edema bilaterally, capillary refill intact, able to wiggle toes both sides, peripheral pulsations are intact on both sides Left foot- swollen and erythematous operated wound extended from the ventral surface to the dorsal surface of the left foot at the between of 3rd and 4th interweb space with the depth of around 1-2 cm and healing margins. No foul or discolored discharge. Central Nervous System: RESIDENT ADVISOR: No focal neurological deficits, no motor weakness in all 4 extremities, could move all 4 extremities. Left foot up to groin level, and up to ankle level on the right foot, bilateral UL up to wrist levels- diminished sensory Musculoskeletal: Musculoskeletal: No joint swelling, deformities, inflammations, and no scoliosis and back tenderness Skin: Skin: No active skin lesions and rashes Diagnostic Data Last Recorded Lab Results: 07/27/24 0851 07/27/24 0851 Diagnostic Data: Laboratory Tests Test 07/27/24 12:13 Prothrombin Time 10.4 SECONDS (9.0-12.0) INR International Normalized Ratio 1.0 INR Activated Partial Thromboplast Time 27 SECONDS (22-32) Coagulation Comments Counseling Services Smoking & Tobacco Cessation: 3-10 Minutes Advance Care Planning Advanced Care plannin - 30 Minutes Additional Plan A 53 years old male with past medical history of CAD, s/p cardiac stent, history of RI, CHFrEF 30%, T2 DM, HTN, HLD, peripheral neuropathy, asthma/COPD who recently was hospitalized here for removal of foreign body/nail metal a week ago presented with the progressive swollen and painful post operated site on the left foot. # Left post operated foot cellulitis # S/p foreign metal body roscoe surgery over the left foot -started IV vancomycin, ceftriaxone and metronidazole with a concern of osteomyelitis in the presence of elevated ESR CRP and WBC count -ordered MRI left lower extremities to ruled out osteomyelitis -control pain with IV Dilaudid 0.5 mg q.4 hours as needed. -wound culture, wound care consultation was requested, appreciate it -PT eval # T2DM # Peripheral neuropathy -RBS 137, HGB A1c last time was 6.6 in june -started medium dose sliding scale insulin, glargine 6 units at bedtime for now, we will adjust according to his random blood sugar -we will consider to add gabapentin for his peripheral neuropathic pain. # HTN # HLD # Hx of CAD, s/p stent, RI Hx # CHFrEF - 30 % -continue appropriately after medication reconciliation was done. # normochromic normocytic anemia -most probably from the anemia of chronic disease VS early part of JEANNE -continuous daily CBC monitoring. CODE STATUS: Full code DVT prophylaxis: Sc heparin Analgesia/sedation: IV Dilaudid Lines/tubes: Peripheral IV GI prophylaxis: Protonix Nutrition: Carb controlled diet Prognosis: Guarded Disposition: Continue medical management including IV antibiotics, follow up with the MRI scan for OM exclusion, pain control, PT eval and DC plan. Resident MD attestation: Patient was seen, examined and discussed with attending MD, Dr. Lilly SINGH MD Internal Medicine Resident, PGY2 [facility] Date of Service: July 27, 2024 Billing Provider: JUSTICE LANGFORD MD Common Visit Codes: [id number] INP/OBS CARE (HIGH) Secondary Visit Codes: [id number] CARE PLAN 30 MINUTES MIL SINGH, RES July 27, 2024 13:58 JUSTICE LANGFORD MD July 28, 2024 19:14
[2024-07-27] MEDS ORDERED: ipratropium/albuterol 3ml nebule NEB PRN (14:30)
[2024-07-27] MEDS ORDERED: guaiFENesin ER 600mg tablet PO PRN (14:30)
[2024-07-27] MEDS ORDERED: glucagon, human recombinant 1mg kit SUBCUT PRN (14:30)
[2024-07-27] MEDS ORDERED: DEXTROSE 15 GM of carb/4 tabs (each vial/BOTTLE has 4 tablets) PO PRN ×2 (14:30)
[2024-07-27] MEDS ORDERED: dextrose 50%-water 50ml dispensing syringe IV PRN ×2 (14:30)
[2024-07-27 15:01] VITALS: BP 117/58; PULSE 76; RESP 16; TEMP 97.8; O2SAT 98
[2024-07-27] MEDS: metroNIDAZOLE-Flagyl 500mg/NS 100 ML IV SCH (16:01)
[2024-07-27] MEDS ORDERED: HYDROmorphone inj. 0.5 MG/0.5 ML DISP.SYRIN IV PRN (16:10)
[2024-07-27] MEDS: morphine 2 MG/ML inj. syringe IV PRN (16:11)
[2024-07-27] MEDS ORDERED: nitroGLYCERIN 0.4mg SUBLingual tab SL PRN (16:15)
[2024-07-27] MEDS: TIRZEPATIDE 7.5 MG SQ SCH (16:15)
[2024-07-27 16:24] VITALS: PULSE 94; RESP 16; O2SAT 95
[2024-07-27] MEDS: CefTRIAXone/D5W-Rocephin 1gm 50 ML IV SCH (16:32)
[2024-07-27] MEDS: INSULIN LISPRO 100 UNIT/ML INSULN.PEN MULTI-DOSE SQ SCH (17:00)
[2024-07-27 18:00] VITALS: BP 131/68; PULSE 85; RESP 16; TEMP 98.4; O2SAT 97
[2024-07-27] MEDS ORDERED: TIRZEPATIDE 7.5 MG SQ SCH (18:00)
[2024-07-27 19:00] VITALS: RESP 16; O2SAT 97
[2024-07-27 19:38] VITALS: PULSE 87; RESP 18; O2SAT 99
[2024-07-27] MEDS: K and/or MAG REPLACEMENT MC SCH (20:00)
[2024-07-27] MEDS: heparin, porcine 5000 units/ml vial SQ SCH (20:56)
[2024-07-27] MEDS: furosemide 20MG tablet PO SCH (20:57)
[2024-07-27] MEDS: ferrous sulfate 325mg tablet PO SCH (20:57)
[2024-07-27] MEDS: insulin glargine (Lantus) pen - multi-dose SQ SCH (21:09)
[2024-07-27 22:00] VITALS: BP 143/79; PULSE 89; RESP 16; TEMP 99.6; O2SAT 98
[2024-07-27] MEDS: gabapentin 100mg capsule PO SCH (23:50)
[2024-07-27] MEDS: vancomycin/NS 1 GM ADD-VANTAGE 250 ML IV SCH (23:50)
[2024-07-28] VITALS (10 sets, daily range): BP systolic 131–194; BP diastolic 66–106; PULSE 77–95; RESP 14–21; TEMP 97.2–98.6; O2SAT 91–98
[2024-07-28 06:44] LABS: BASOPHILS % (AUTO) 0.3 % (0-1); EOSINOPHILS # (AUTO) 0.1 X10'3 (0-0.9); EOSINOPHILS % (AUTO) 1.3 % (0-6); HEMATOCRIT 34.8 % (42.0-52.0); HEMOGLOBIN 11.6 g/dl (14.0-17.9); MEAN CORPUSCULAR HEMOGLOBIN 29.4 PG (27.0-31.0); MEAN CORPUSCULAR HGB CONC 33.3 g/dL (33.0-36.5); MEAN CORPUSCULAR VOLUME 88.4 FL (78-98); MEAN PLATELET VOLUME 7.6 FL (7.4-10.4); MONOCYTES # (AUTO) 1.3 X10'3 (0-0.9); MONOCYTES % (AUTO) 11.7 % (2-12); NEUTROPHILS # (AUTO) 8.3 X10'3 (1.8-7.7); NEUTROPHILS % (AUTO) 77.7 % (42-75); PLATELET COUNT 430 X10'3 (140-440); RED BLOOD COUNT 3.94 X10'6 (4.70-6.10); WHITE BLOOD COUNT 10.6 X10'3 (4.5-11.0)
[2024-07-28 06:58] LABS: ALANINE AMINOTRANSFERASE 31 U/L (12-78); ALBUMIN 2.8 G/DL (3.4-5.0); ALBUMIN/GLOBULIN RATIO 0.7 (1.1-1.5); ALKALINE PHOSPHATASE 94 IU/L (46-116); ANION GAP 11 (8-16); ASPARTATE AMINO TRANSFERASE 11 U/L (10-37); BILIRUBIN,TOTAL 0.4 MG/DL (0.1-1.0); BLOOD UREA NITROGEN 6 MG/DL (7-18); BUN/CREATININE RATIO 6.6 (10.0-20.0); CALCIUM 9.1 MG/DL (8.5-10.1); CHLORIDE 103 MMOL/L (99-107); CREATININE 0.91 MG/DL (0.60-1.10); GLUCOSE 122 MG/DL (70-104); MAGNESIUM 1.8 MG/DL (1.5-2.4); POTASSIUM 3.3 MMOL/L (3.5-5.1); SODIUM 139 MMOL/L (135-145); TOTAL CARBON DIOXIDE 25.2 MMOL/L (24-32); TOTAL PROTEIN 6.9 G/DL (6.4-8.2); eCRCL 82 ML/MIN; eGFR 87 ML/MIN
--- NOTE | 2024-07-28 07:14 | RADIOLOGY REPORT ---
CLINICAL HISTORY: Left foot cellulitis. Rule out osteomyelitis. TECHNIQUE: Multi sequence multi planar MRI images of the left forefoot and midfoot were obtained wit hout contrast. COMPARISON: CT CT LOWER EXTREMITY on DOS: 07/20/24 FINDINGS: There is a wound at the plantar aspect of the forefoot near the level of the 3rd digit PIP joint. There is also a suspected wound of the dorsal aspect of the 3rd digit at the level of the pro ximal phalanx. There is mild artifact near the location of the wound, can not exclude residual foreig n body when correlated with prior CT exam. There is adjacent subcutaneous edema, likely cellulitis in the appropriate clinical setting. No organized fluid collection identified to suggest abscess. No ev idence for osteomyelitis. There is subcutaneous edema along the dorsal aspect of the forefoot and mid foot, which is nonspecific, but may be seen with cellulitis in the appropriate clinical setting. Intr amuscular T2 hyperintense signal visualized in the midfoot and forefoot. No significant fatty atrophy visualized. Flexor and extensor tendons appear intact. IMPRESSION: 1. Wounds of the plantar and dorsal aspects of the 3rd digit with adjacent subcutaneous edema, likely cellulitis in the appropriate clinical setting. No organized fluid collection identified to suggest abscess, although limited evaluation for abscess without postcontrast imaging. 2. Mild artifact adjacent to the wound at the plantar aspect of the 3rd digit, can not exclude residu al foreign body when correlated with prior CT exam. 3. No evidence for osteomyelitis. 4. Additional findings as detailed above.
[2024-07-28] MEDS: citalopram 20mg tablet PO SCH (07:47)
[2024-07-28] MEDS: losartan 25mg tablet PO SCH (07:48)
[2024-07-28] MEDS: potassium Cl 20 mEq SR tablet PO PRN (07:48)
[2024-07-28] MEDS: atorvastatin 20mg tablet PO SCH (07:49)
[2024-07-28] MEDS: ascorbic acid 500mg tablet PO SCH (07:49)
[2024-07-28] MEDS: amLODIPine 5mg tablet PO SCH (07:49)
[2024-07-28] MEDS: aspirin 81mg, enteric-coated 1 TAB TABLET.DR PO SCH (07:49)
[2024-07-28] MEDS: clopidogrel 75mg tablet PO SCH (07:49)
[2024-07-28] MEDS: carVEDilol 12.5mg tablet PO SCH (07:50)
[2024-07-28] MEDS: pantoprazole 40mg Tablet.DR PO SCH (07:50)
--- NOTE | 2024-07-28 14:01 | PROGRESS NOTE- Residence ---
Progress Note - Resident Providers to CC Resident Creating Document: KOFFI YING RES ~ Antibiotic Timeout Antibiotic Ordered?: Yes Subjective Patient seen and examined today. States that his wound has gotten better since the day of admission. Denies any new complaints Objective Vital Signs Date Time Temp Pulse Resp B/P (MAP) Pulse Ox O2 Delivery O2 Flow Rate FiO2 07/28/24 08:00 Room Air 07/28/24 07:54 78 16 97 0 21 07/28/24 05:00 98.6 134/66 (88) Result Diagram: 07/28/24 0603 07/28/24 0603 General: Well alert, well oriented, not confused, not agitated, not in acute distress, well cooperated during the physical. HEENT: Conjunctive are pink, sclerae clear, no icterus, pupil is equal in both sides, reactive to light, no ear discharge, no pharyngeal erythema or an edema, mouth and lips are moist. Neck: Supple, no JVD, no lymphadenopathy and thyromegaly. Lungs:Equal air entry on both lungs, no additional sounds Heart: S1-S2 regular sinus rhythm and, regular rate, no gallops, no rubs, no murmurs Abdomen: No visible peristalsis, Bowel sounds present on auscultation, soft, nontender, no guarding, no rigidity Extremities: No obvious deformities, no pitting edema bilaterally, capillary refill intact, able to wiggle toes both sides, peripheral pulsations are intact on both sides Left foot- swollen and erythematous operated wound extended from the ventral surface to the dorsal surface of the left foot at the between of 3rd and 4th interweb space with the depth of around 1-2 cm and healing margins. No foul or discolored discharge. CHANNEL LIP STIFFENER INSOLES: No focal neurological deficits, no motor weakness in all 4 extremities, could move all 4 extremities. Left foot up to groin level, and up to ankle level on the right foot, bilateral UL up to wrist levels- diminished sensory Musculoskeletal: No joint swelling, deformities, inflammations, and no scoliosis and back tenderness Skin: No active skin lesions and rashes Coagulation Studies Laboratory Tests Test 07/27/24 12:13 Prothrombin Time 10.4 SECONDS (9.0-12.0) INR International Normalized Ratio 1.0 INR Activated Partial Thromboplast Time 27 SECONDS (22-32) Coagulation Comments Assessment Assessment A 53 years old male with past medical history of CAD, s/p cardiac stent, history of [place], CHFrEF 30%, T2 DM, HTN, HLD, peripheral neuropathy, asthma/COPD who recently was hospitalized here for removal of foreign body/nail metal a week ago presented with the progressive swollen and painful post operated site on the left foot. Plan Plan # Left post operated foot cellulitis # S/p foreign metal body roscoe surgery over the left foot -left lower extremity MRI ruled out osteomyelitis and does not suggest abscess but limited evaluation due to post-contrast imaging -continue IV vancomycin, ceftriaxone 1 g IV daily and metronidazole 500 mg IV q.12h -Requested ID Dr. Pat for a consult -control pain with IV Dilaudid 0.5 mg q.4 hours as needed. -wound culture, wound care consultation was requested, appreciate it -PT eval # T2DM # Peripheral neuropathy - HGB A1c last time was 6.6 in june -started medium dose sliding scale insulin, glargine 6 units at bedtime for now, we will adjust according to his random blood sugar -continue gabapentin 100 mg p.o. q.8h for his peripheral neuropathic pain. # HTN # HLD # Hx of CAD, s/p stent, [place] Hx # CHFrEF - 30 % -continue Coreg 25 mg p.o. daily, Lipitor 80 mg p.o. daily, amlodipine 10 mg p.o. daily, losartan 50 mg p.o. daily, Plavix 75 mg p.o. daily, aspirin 81 mg p.o. daily, Lasix 20 mg p.o. b.i.d. # normochromic normocytic anemia -most probably from the anemia of chronic disease VS early part of JEANNE -continuous daily CBC monitoring. CODE STATUS: Full code DVT prophylaxis: Sc heparin Analgesia/sedation: IV Dilaudid Lines/tubes: Peripheral IV GI prophylaxis: Protonix Nutrition: Carb controlled diet Prognosis: Guarded Disposition: Continue medical management including IV antibiotics, follow up with ID recommendations, pain control, PT eval and DC plan. Koffi Ying MD Internal Medicine Resident, PGY 2 Date of Service: July 28, 2024 Billing Provider: JUSTICE LANGFORD MD Common Visit Codes: [id number] INP/OBS CARE(HIGH) KOFFI YING RES July 28, 2024 14:01 JUSTICE LANGFORD MD July 28, 2024 19:19
[2024-07-28] MEDS: potassium chloride 10mEq ER tablet PO SCH (20:56)
[2024-07-28] MEDS: ondansetron/PF 4mg/2ml inj IV PRN (21:39)
[2024-07-28] MEDS: midazolam 1 mg/ML 2ml injection ONE (21:50)
[2024-07-28] MEDS: LORazepam 2 mg/ml vial ONE (21:52)
[2024-07-28] MEDS: midazolam 100mg in NS 100ml 100 ML IV SCH ×2 (22:09→23:35)
[2024-07-28] MEDS: FENTANYL-0.9 % NACL/PF 100 ML IV SCH ×2 (22:09→23:35)
[2024-07-28 22:18] LABS: VANCOMYCIN,TROUGH 10.3 ug/mL (10.0-20.0)
[2024-07-28] MEDS: VANCOMYCIN LEVEL IV ONE (22:30)
--- NOTE | 2024-07-28 22:32 | ELECTROCARDIOGRAPH REPORT ---
[facility] Test Date: 2024-07-28 Test Time: 22:30:14 Pat Name: DMITRI FERRO Department: 2ND FLOOR Room: [place] [address] A Gender: M Back Hanger: : 1970 Requested By: KOFFI MCCLURE Order Number: [id number] Reading MD: Dr. Jayden Spann Measurements Intervals [place] Rate: 92 P: 76 MI: 212 QRS: 76 QRSD: 88 T: 29 QT: 357 QTc: 442 Interpretive Statements Sinus rhythm Prolonged MI interval Electronically Signed On 07-30-2024 20:53:[address] Jayden Spann Please click the below link to view image of tracing.
--- NOTE | 2024-07-28 22:34 | RADIOLOGY REPORT ---
CHEST RADIOGRAPH Indication: check tube place for intubation Technique: Single frontal view of the chest was obtained COMPARISON: DI CHEST,SINGLE VIEW on DOS: 07/21/24 FINDINGS / IMPRESSION: Lines and Tubes: ETT in satisfactory position with its tip approximately 3 cm above the jojo. Lungs: Mild pulmonary edema which was not present on the prior chest x-ray from 07/21/24. Pleura: No effusion. No pneumothorax. Cardiomediastinal contours: Within normal limits.
[2024-07-28 22:48] LABS: ABG BASE EXCESS -6.3 mmol/L (-2.0-3.0); ABG HCO3 24.6 mmol/L (21.0-28.0); ABG OXYGEN SATURATION 92.9 % (94.0-98.0); ABG PH (T) 7.108 (7.350-7.450); ABG PO2 (T) 95.6 mmHg (83.0-108.0); FCOHb 0.8 % (0.5-1.5); FMetHb 0.2 % (0.0-1.5); MODE VENT - PRVC; PATIENT TEMPERATURE 38.1; PEEP 5 cm H2O; RESPIRATORY RATE 16 b/min; TIDAL VOLUME 400 mL; TOTAL HEMOGLOBIN 13.9 G/dl (13.5-17.5)
--- NOTE | 2024-07-28 23:24 | CONSULTATION REPORT ---
Consult Providers to CC CC: DAYNA KING MD New Onset Seizure History of Present Illness Reason for Admit\\Complaint: New onset seizure History of Present Illness 53 yr old man who is here in the ICU at [facility] having been brought from the floor Patient was found looking very poorly and not able to breathe well He was looking ashen and like he just had a seizure He was promptly attended to by the ER doctors who intubated the patient I was called to the bedside by the telehealth platform He had a hx of osteomyelitis and was being treated with Rocephin on the floor Today we have started him on Keppra He was found to have a respiratory acidosis for which we have adjusted the ventilator to increase his minute ventilation He will be connected to continuous EEG He will be getting a CT head LASHAWN Allergies: Coded Allergies: iodine (Verified Allergy, Severe, 10/24/23) Per patient "Cardiac Arrest" when he received iodine Uncoded Allergies: CONTRAST DYE (Allergy, Unknown, 12/26/23) Home Medications Home Medications Active Hydrocodon-Acetaminophn 10-325 tablet (Acetaminophen/Hydrocodone Bitart) 10mg- 325mg Tablet 1 Each PO Q6H PRN Augmentin 875/125 MG (Amoxicillin/Clavulanate Potassium) 875 Mg-125 Mg Tablet 1 Tab PO BID Nitroglycerin 0.4 Mg Tab.subl 1 Tab SL PRN PRN Take one tablet every 5 minutes PRN chest pain if you require a 3rd tablet come to the ED lashawn. PROTONIX tablet (Pantoprazole Sodium) 40 Mg Tablet.dr 1 Tab PO DAILY 30 Days Amlodipine Besylate 10 Mg Tablet 1 Tab PO DAILY 30 Days Reported Furosemide 20 Mg Tablet 1 Tab PO BID Mounjaro (Tirzepatide) 7.5 Mg/0.5 Ml Pen.injctr 7.5 Mg SQ Q7D Carvedilol 25 Mg Tablet 1 Tab PO DAILY Potassium Chloride 10 Meq Tab.prt.sr 1 Tab PO TID 30 Days Cozaar* (Losartan Potassium) 25 Mg Tablet 2 Tab PO DAILY 30 Days Gabapentin 100 Mg Capsule 1 Cap PO Q8H 30 Days Ferrous Sulfate* (Ferrous Sulfate) 325 Mg Tablet 1 Tab PO TID Atorvastatin Calcium 80 Mg Tablet 1 Tab PO DAILY Stephenaglbyron Guidry U-100 (Insulin Glargine,Hum.rec.anlog) 100 Unit/Ml (3 Ml) Insuln.pen 70 Units SUBCUT DAILY Clopidogrel (Clopidogrel Bisulfate) 75 Mg Tablet 1 Tab PO DAILY 30 Days Do not stop medication unless instructed by prescriber. Aspirin EC (Aspirin) 81 Mg Tablet.dr 1 Tab PO DAILY 30 Days Ascorbic Acid 500 Mg Tab.chew 1 Tab PO DAILY Novolog (Insulin Aspart) 100 Unit/Ml (3 Ml) Insuln.pen 4 Units SQ TIDAC Combivent Respimat Inhal [place] (Albuterol/Ipratropium) 20 Mcg-100 Mcg/Actuation Aer.w.adap 1 Puff IH Q6H PRN Celexa* (Citalopram Hydrobromide) 20 Mg Tablet 1 Tab PO DAILY Exam Vitals: Vital Signs Date Time Temp Pulse Resp B/P (MAP) Pulse Ox O2 Delivery O2 Flow Rate FiO2 07/28/24 22:09 158/98 07/28/24 22:09 18 07/28/24 22:00 98.3 91 91 Room Air 07/28/24 20:22 0 21 Diagnostic Data Last Recorded Lab Results: 07/28/24 0603 07/28/24 0603 Diagnostic Data: Laboratory Tests Test 07/27/24 12:13 Prothrombin Time 10.4 SECONDS (9.0-12.0) INR International Normalized Ratio 1.0 INR Activated Partial Thromboplast Time 27 SECONDS (22-32) Coagulation Comments Additional Plan 53yo M we have seen in the ICU New onset seizure Now intubated and sedated Pupils were said to b will start on Keppra meanwhile Continuous EEG Will get a CT head LASHAWN Acute Resp Failure Acute Hypoxic Resp Failure Hypercapnic respiratory Failure Now on mechanically ventilator Hx of DM Lantus and Sliding Scale ordered Urine putting out clear yellow urine. Will continue to monitor closely Date of Service: Jul 29, 2024 Billing Provider: DAYNA KING MD Common Visit Codes: [id number] CARE 30-74 MIN DAYNA KING MD July 28, 2024 23:24
[2024-07-28 23:43] LABS: ALANINE AMINOTRANSFERASE 33 U/L (12-78); ALBUMIN 3.1 G/DL (3.4-5.0); ALBUMIN/GLOBULIN RATIO 0.6 (1.1-1.5); ALKALINE PHOSPHATASE 117 IU/L (46-116); ANION GAP 18 (8-16); ASPARTATE AMINO TRANSFERASE 22 U/L (10-37); BILIRUBIN,TOTAL 0.4 MG/DL (0.1-1.0); BLOOD UREA NITROGEN 7 MG/DL (7-18); CALCIUM 9.8 MG/DL (8.5-10.1); CHLORIDE 101 MMOL/L (99-107); CREATININE 1.16 MG/DL (0.60-1.10); GLUCOSE 197 MG/DL (70-104); POTASSIUM 4.5 MMOL/L (3.5-5.1); SODIUM 139 MMOL/L (135-145); TOTAL CARBON DIOXIDE 20.1 MMOL/L (24-32); TOTAL PROTEIN 8.7 G/DL (6.4-8.2); eCRCL 64 ML/MIN; eGFR 66 ML/MIN
[2024-07-28 23:51] LABS: MAGNESIUM 2.4 MG/DL (1.5-2.4); PHOSPHORUS 4.6 MG/DL (2.3-4.5); PRO BRAIN NATRIURETIC PEPTIDE 3755 PG/ML (0-125)
[2024-07-29] VITALS (34 sets, daily range): BP systolic 97–155; BP diastolic 55–140; PULSE 70–82; RESP 9–25; O2SAT 95–100
[2024-07-29] MEDS: furosemide 20 MG/2 ML vial IV ONE
[2024-07-29 00:45] LABS: ALANINE AMINOTRANSFERASE 62 U/L (12-78); ALBUMIN 2.7 G/DL (3.4-5.0); ALBUMIN/GLOBULIN RATIO 0.6 (1.1-1.5); ALKALINE PHOSPHATASE 123 IU/L (46-116); ANION GAP 8 (8-16); ASPARTATE AMINO TRANSFERASE 84 U/L (10-37); BILIRUBIN,TOTAL 0.5 MG/DL (0.1-1.0); BLOOD UREA NITROGEN 8 MG/DL (7-18); BUN/CREATININE RATIO 7.2 (10.0-20.0); CALCIUM 8.9 MG/DL (8.5-10.1); CHLORIDE 101 MMOL/L (99-107); CREATININE 1.11 MG/DL (0.60-1.10); GLUCOSE 236 MG/DL (70-104); PHOSPHORUS 5.3 MG/DL (2.3-4.5); POTASSIUM 4.4 MMOL/L (3.5-5.1); SODIUM 137 MMOL/L (135-145); TOTAL CARBON DIOXIDE 27.7 MMOL/L (24-32); TOTAL PROTEIN 7.2 G/DL (6.4-8.2); eCRCL 67 ML/MIN; eGFR 69 ML/MIN
[2024-07-29 00:51] LABS: BASOPHILS # (AUTO) 0.1 X10'3 (0-0.2); BASOPHILS % (AUTO) 0.2 % (0-1); EOSINOPHILS # (AUTO) 0.1 X10'3 (0-0.9); EOSINOPHILS % (AUTO) 0.4 % (0-6); HEMATOCRIT 38.8 % (42.0-52.0); HEMOGLOBIN 12.3 g/dl (14.0-17.9); LYMPHOCYTES # (AUTO) 0.6 X10'3 (1.1-4.8); LYMPHOCYTES % (AUTO) 2.5 % (21-51); MEAN CORPUSCULAR HEMOGLOBIN 28.4 PG (27.0-31.0); MEAN CORPUSCULAR HGB CONC 31.8 g/dL (33.0-36.5); MEAN CORPUSCULAR VOLUME 89.4 FL (78-98); MEAN PLATELET VOLUME 7.4 FL (7.4-10.4); MONOCYTES # (AUTO) 1.7 X10'3 (0-0.9); MONOCYTES % (AUTO) 6.7 % (2-12); NEUTROPHILS # (AUTO) 22.5 X10'3 (1.8-7.7); NEUTROPHILS % (AUTO) 90.2 % (42-75); PLATELET COUNT 462 X10'3 (140-440); RED BLOOD COUNT 4.34 X10'6 (4.70-6.10); RED CELL DISTRIBUTION WIDTH 15.3 % (11.5-14.5)
[2024-07-29] MEDS: levetiracetam inj 500 MG in normal saline 100ml IV soln 100 ML IV SCH (01:21)
[2024-07-29] MEDS: Levetiracetam-NACL 500mg/100ml 100 ML IV ONE (01:22)
[2024-07-29] MEDS: metroNIDAZOLE-Flagyl 500mg/NS 100 ML IV SCH (01:53)
[2024-07-29 02:01] LABS: ABG BASE EXCESS -2.6 mmol/L (-2.0-3.0); ABG HCO3 22.1 mmol/L (21.0-28.0); ABG OXYGEN SATURATION 98.4 % (94.0-98.0); ABG PCO2 (T) 38.3 mmHg (35.0-48.0); ABG PO2 (T) 116.2 mmHg (83.0-108.0); FCOHb 0.4 % (0.5-1.5); FHHb 1.6 % (0.0-5.0); FMetHb 0.3 % (0.0-1.5); FO2Hb 97.7 % (94.0-98.0); MODE VENT - PRVC; PEEP 8 cm H2O; RESPIRATORY RATE 20 b/min; TIDAL VOLUME 450 mL; TOTAL HEMOGLOBIN 12.2 G/dl (13.5-17.5)
--- NOTE | 2024-07-29 02:06 | PROCEDURE NOTE CC ---
Procedure Note Providers to CC ~ Altered mental status Seizure-like activity Acute hypoxic respiratory failure Indications Acute hypoxic respiratory failure was the indication for emergency sedation Special Services Coordinator Ramone Adams DO Informed Consent Not applicable, implied consent for emergent facility Description Intubation Performed by: Ramone Adams Authorized by: Ramone Adams Consent: Verbal consent not obtained. The procedure was performed in an emergent situation. Required items: required blood products, implants, devices, and special equipment available Patient identity confirmed: arm band Time out: Immediately prior to procedure a "time out" was called to verify the correct patient, procedure, equipment, director of operations support and site/side marked as required. Indications: respiratory failure and airway protection Intubation method: direct Patient status: paralyzed (RSI) Preoxygenation: BVM and nonrebreather mask Sedatives: etomidate Paralytic: Rocuronium Laryngoscope size: Mac 4 Tube size: 8.0 Tube type: cuffed Number of attempts: 1 Cords visualized: yes Post-procedure assessment: chest rise, BS = bilaterally none over epigastrum, +CO2 detector Breath sounds: equal and absent over the epigastrium Cuff inflated: yes ETT to lip: 22 cm Tube secured with: Tube walker Chest x-ray interpreted by me. Chest x-ray findings: endotracheal tube in appropriate position Patient tolerance: Patient tolerated the procedure well with no immediate complications. GINA ADAMS DO Jul 29, 2024 02:06
--- NOTE | 2024-07-29 05:56 | PROCEDURE NOTE ---
Procedure Note Providers to CC ~ Interpretation: [place] EEG Note # Demographics Type of EEG Read: - Continuous EEG - subsequent day - video Patient Location: Inpatient First Name: Kevin Last Name: Ricardo Date of : 1970 Age: 53 Gender: Male Facility: [facility] Time of Initial Page ([facility] ): 07/28/2024 22:38 Time of Return Call ([facility] Time): 07/28/2024 23:09 # EEG Interpretation Start Time of EEG Read ([facility] ): 07/28/2024 23:43 Stop Time of EEG Read ([facility] ): 07/29/2024 05:00 Duration: 5h 17m Technical Details: - The EEG electrodes were placed using the standard International 10-20 system of electrode placement. Video and an accessory EKG lead were used during the course of this study. Indication: - altered mental status # Description Photic Stimulation: NOT Performed Hyperventilation: NOT performed Phases Captured: - unresponsive - awake - drowsy - sleep waxing/waning drowsy/sleepiness Symmetry: symmetric Posterior Dominant Rhythm: absent Predominant Frequencies: - delta (2-3 Hz) - abundant (50-89%) Superimposed Frequencies: - beta (>15 Hz) - abundant (50-89%) Amplitude: - normal low-normal, but above 10uV Reactivity: yes Variability: yes Continuity: brief attenuation EKG: artifactual # Abnormalities Epileptiform Abnormalities: occasional broad bifrontal generalized discharges with triphasic morphology Focal Slowing: no Seizure: - NOT present # Impression Impression: abnormal Diffuse Slowing and occasional broad bifrontal generalized discharges with triphasic morphology # Clinical Correlation Clinical Correlation: Diffuse slowing is non-specific and may be seen in the setting of diffuse cerebral dysfunction; such as toxic/metabolic/infectious encephalopathy or heavily sedating medication use. Generalized discharges with triphasic like morphology lie on the ictal- interictal continuum. This periodic pattern lies closer toward the interictal end of the continuum. These are non-specific and may be seen in the setting of encephalopathy or with diffuse cerebral dysfunction. # Demographics First Name: Kevin Last Name: Ricardo Facility: [facility] DAVE CHAMBERLAIN MD Jul 29, 2024 05:56
--- NOTE | 2024-07-29 07:02 | RADIOLOGY REPORT ---
CHEST RADIOGRAPH Indication: ETT Technique: Single frontal view of the chest was obtained COMPARISON: DI CHEST,SINGLE VIEW on DOS: 07/28/24, DI CHEST,SINGLE VIEW on DOS: 07/21/24, DI CHEST,SING LE VIEW on DOS: 07/20/24, DI CHEST,SINGLE VIEW on DOS: 07/20/24, DI CHEST,SINGLE VIEW on DOS: 07/19/24 FINDINGS: Lines and Tubes: Slight interval retraction of endotracheal tube such that the tip now projects appro ximately 5.7 cm above the level of the jojo. Enteric catheter unchanged. Lungs: Clear Pleura: No effusion. No pneumothorax. Cardiomediastinal contours: Unremarkable Bones: Unremarkable IMPRESSION: 1. No acute disease. 2. Slight interval retraction of endotracheal tube such that the tip now projects approximately 5.7 c m above the level of the jojo. Enteric catheter unchanged.
[2024-07-29] MEDS ORDERED: acetaminophen 325mg tablet NG PRN (07:48)
[2024-07-29] MEDS ORDERED: DEXTROSE 15 GM of carb/4 tabs (each vial/BOTTLE has 4 tablets) NG PRN ×2 (07:57→07:58)
[2024-07-29] MEDS ORDERED: EMPAGLIFLOZIN 10 MG TABLET PO SCH (08:00)
[2024-07-29] MEDS ORDERED: rocuronium 10mg/ml inj IV ONE (08:00)
[2024-07-29] MEDS: citalopram 20mg tablet NG SCH (08:00)
[2024-07-29] MEDS ORDERED: aspirin 81mg tab.chew NG SCH (08:00)
[2024-07-29] MEDS ORDERED: docusate sodium 100mg/10ml UD cup NG PRN (08:00)
[2024-07-29] MEDS: EMPAGLIFLOZIN 10 MG TABLET NG SCH (08:00)
[2024-07-29] MEDS ORDERED: magnesium hydroxide 30ml (MOM) UD suspension NG PRN (08:03)
[2024-07-29] MEDS ORDERED: mag hydrox/Alum hydrox/simeth 30ml oral suspension NG PRN (08:04)
[2024-07-29] MEDS: POTASSIUM CHLORIDE 20 MEQ/15 ML oral solution NG SCH (08:07)
[2024-07-29] MEDS ORDERED: POTASSIUM CHLORIDE 20 MEQ/15 ML oral solution NG PRN ×2 (08:08→08:09)
[2024-07-29] MEDS: spironolactone 25 MG tablet NG SCH (08:30)
[2024-07-29] MEDS ORDERED: spironolactone 25 MG tablet PO SCH (08:30)
[2024-07-29] MEDS: GABAPENTIN 300 MG/6 ML oral SOLUTION cup NG SCH (09:44)
[2024-07-29] MEDS: atorvastatin 20mg tablet NG SCH (09:45)
[2024-07-29] MEDS: ascorbic acid 500mg tablet NG SCH (09:45)
[2024-07-29] MEDS: aspirin 81mg tab.chew NG SCH (09:45)
[2024-07-29] MEDS: clopidogrel 75mg tablet NG SCH (09:46)
[2024-07-29] MEDS: carVEDilol 12.5mg tablet NG SCH (09:46)
[2024-07-29] MEDS: furosemide 40 MG/4 ML oral solution UD cup NG SCH (09:49)
[2024-07-29] MEDS: ferrous sulfate 300mg/5ml UD oral liquid NG SCH (09:51)
[2024-07-29] MEDS: lansoprazole 15mg solutab NG SCH (10:02)
--- NOTE | 2024-07-29 10:25 | PROGRESS NOTE ---
Subjective Subjective Patient seen and examined today. Intubated after rapid response was called and no chest compressions were undertaken. The patient's ABG revealed an acute respiratory acidosis with a pH of 7.108 and a pCO2 level of 81. Reason for visit: Intubated and sedated on mechanical ventilation. Reviewed: Care Plan, H&P, Labs, Medications, Radiology Review of Systems Changes from previous H/P or p: No Changes Daily Progress Note Exam Vitals Vital Signs Date Time Temp Pulse Resp B/P (MAP) Pulse Ox O2 Delivery O2 Flow Rate FiO2 07/29/24 09:35 74 20 97 30 07/29/24 07:00 98.6 111/71 (84) Mechanical Ventilator 07/28/24 20:22 0 Result Diagram: 07/29/24 0008 07/29/24 0008 Exam HEENT examination: N/C/AT, PERRL, intubated Neck: Supple with no jugular venous distention and no lymphadenopathy. Chest: Symmetric expansion bilaterally. Pulmonary: Clear to auscultation bilaterally with no wheezing, no rales rhonchi. Cardiovascular: Regular rate and rhythm with normal S1 and S2 without any S3-S4 gallop. Abdomen: Soft nontender no organomegaly. Extremities: Left foot wrapped in wound dressing. Results Coagulation Studies Laboratory Tests Test 07/27/24 12:13 Prothrombin Time 10.4 SECONDS (9.0-12.0) INR International Normalized Ratio 1.0 INR Activated Partial Thromboplast Time 27 SECONDS (22-32) Coagulation Comments VTE VTE Risk Score VTE Risk Score Reference Ranges: Score 0-1 = Low Risk (Aggressive mobilization; early ambulation; no VTE prophylaxis required) Score 2: Moderate Risk (Intermittent/Pneumatic Compression Device OR Lovenox/Heparin/Coumadin) Score 3-4: High Risk (Intermittent/Pneumatic Compression Device AND Lovenox/Heparin/Coumadin) Score > or = 5: Highest Risk (Intermittent/Pneumatic Compression Device AND Lovenox/Heparin/Coumadin) Assessment/Plan Assessment A 53 years old male with past medical history of CAD, s/p cardiac stent, history of [place], CHFrEF 30%, T2 DM, HTN, HLD, peripheral neuropathy, asthma/COPD who recently was hospitalized here for removal of foreign body/nail metal a week ago presented with the progressive swollen and painful post operated site on the left foot. Plan Acute respiratory failure: Most likely caused by over sedation leading to CO2 narcosis. Status post intubation. Now sedated on mechanical ventilation utilizing midazolam and fentanyl. Chest x-ray unremarkable Patient is responsive on mechanical ventilation and sedation. Suspected seizure: Now on Keppra. Patient on gabapentin 100 mg capsule 3 times a day. EEG ongoing. Left foot cellulitis caused by foreign body. Status post foreign body removal as well as I and D by Podiatry. Currently on IV ceftriaxone, IV vancomycin and IV metronidazole. ID consultation pending. Adult onset Diabetes mellitus complicated by neuropathy. Most recent HbA1c 6.6. -control pain with IV Dilaudid 0.5 mg q.4 hours as needed. HTN HLD Hx of CAD, s/p stent, [place] Hx HFrEF - 30 % Anemia, mild: Hemoglobin today is 12.3 Plan: Discontinue sedation and place. Patient on spontaneous breathing trial. Intention is to extubate. Continue Keppra Await final EEG results but so far no definite seizure activity noted. Continue current antibiotic therapy and await ID consultation recommendations. Adjust insulin to maintain serum glucose level of 140-180 mg/dL. Continue Coreg 25 mg p.o. daily, Lipitor 80 mg p.o. daily, amlodipine 10 mg p.o. daily, losartan 50 mg p.o. daily, Plavix 75 mg p.o. daily, aspirin 81 mg p.o. daily, Lasix 20 mg p.o. b.i.d. CODE STATUS: Full code DVT prophylaxis: Sc heparin Analgesia/sedation: IV Dilaudid Lines/tubes: Peripheral IV GI prophylaxis: Protonix Nutrition: Carb controlled diet Prognosis: Guarded Disposition: Continue ICU care. Overall prognosis: Guarded Critical care time 35 minutes. DI GONCALVES MD Jul 29, 2024 10:24
[2024-07-29] MEDS: VANCOmycin 1250MG/NS 250ml Bag 250 ML IV SCH (11:00)
[2024-07-29] MEDS: TIRZEPATIDE 7.5 MG SQ SCH (12:00)
--- NOTE | 2024-07-29 15:23 | [facility] CONSULT REPORT ---
[facility] Procedure Note [facility] Procedure Note Consult [facility] Note # Demographics Type of EEG Read: - Continuous EEG - disconnected/end clip - video Patient Location: Inpatient First Name: Kevin Last Name: Ricardo Date of : 1970 Age: 53 Gender: Male Facility: [facility] # EEG Interpretation Start Time of EEG Read (): 07/29/2024 05:00 Stop Time of EEG Read (): 07/29/2024 12:28 Duration: 7h 28m Technical Details: - The EEG electrodes were placed using the standard International 10-20 system of electrode placement. Video and an accessory EKG lead were used during the course of this study. Indication: - altered mental status # Description Photic Stimulation: NOT Performed Hyperventilation: NOT performed Phases Captured: - unresponsive - awake - drowsy - sleep waxing/waning drowsy/sleepiness Symmetry: symmetric Posterior Dominant Rhythm: absent Predominant Frequencies: - delta (2-3 Hz) - abundant (50-89%) Superimposed Frequencies: - beta (>15 Hz) - abundant (50-89%) Amplitude: - normal low-normal, but above 10uV Reactivity: yes Variability: yes Continuity: brief attenuation EKG: artifactual # Abnormalities Epileptiform Abnormalities: occasional broad bifrontal generalized discharges with triphasic morphology Focal Slowing: no Seizure: - NOT present # Impression Impression: abnormal Diffuse Slowing and occasional broad bifrontal generalized discharges with triphasic morphology # Clinical Correlation Clinical Correlation: Diffuse slowing is non-specific and may be seen in the setting of diffuse cer ebral dysfunction; such as toxic/metabolic/infectious encephalopathy or heavily sedating medication use. Generalized discharges with triphasic like morphology lie on the ictal- interictal continuum. This periodic pattern lies closer toward the interictal e nd of the continuum. These are non-specific and may be seen in the setting of encephalopathy or with diffuse cerebral dysfunction. # Demographics First Name: Kevin Last Name: Ricardo Facility: [facility] BUSHRA ZELAYA MD Jul 29, 2024 15:23
--- NOTE | 2024-07-29 20:07 | PROGRESS NOTE- Residence ---
Progress Note - Resident Providers to CC Resident Creating Document: MARYCARMENEMEKAEFRAIN RES ~ Antibiotic Timeout Antibiotic Ordered?: Yes Subjective Patient seen and examined today. He is feeling better today. Comfortably lying on the bed. He complaining of pain over the left lower extremity. Objective Vital Signs Date Time Temp Pulse Resp B/P (MAP) Pulse Ox O2 Delivery O2 Flow Rate FiO2 07/29/24 19:00 76 25 122/64 (83) 97 Nasal Cannula 2.0 07/29/24 18:00 98.6 07/29/24 11:02 30 Result Diagram: 07/29/24 0008 07/29/24 0008 General: Well alert, well oriented, not confused, not agitated, not in acute distress, well cooperated during the physical. HEENT: Conjunctive are pink, sclerae clear, no icterus, pupil is equal in both sides, reactive to light, no ear discharge, no pharyngeal erythema or an edema, mouth and lips are moist. Neck: Supple, no JVD, no lymphadenopathy and thyromegaly. Lungs:Equal air entry on both lungs, no additional sounds Heart: S1-S2 regular sinus rhythm and, regular rate, no gallops, no rubs, no murmurs Abdomen: No visible peristalsis, Bowel sounds present on auscultation, soft, nontender, no guarding, no rigidity Extremities: No obvious deformities, no pitting edema bilaterally, capillary refill intact, able to wiggle toes both sides, peripheral pulsations are intact on both sides Left foot- covered in the dressing. 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 Left foot up to groin level, and up to ankle level on the right foot, bilateral UL up to wrist levels- diminished sensory Musculoskeletal: No joint swelling, deformities, inflammations, and no scoliosis and back tenderness Skin: No active skin lesions and rashes Coagulation Studies Laboratory Tests Test 07/27/24 12:13 Prothrombin Time 10.4 SECONDS (9.0-12.0) INR International Normalized Ratio 1.0 INR Activated Partial Thromboplast Time 27 SECONDS (22-32) Coagulation Comments Advance Care Planning Advanced Care plannin - 30 Minutes Assessment Assessment A 53 years old male with past medical history of CAD, s/p cardiac stent, history of CT, CHFrEF 30%, T2 DM, HTN, HLD, peripheral neuropathy, asthma/COPD who recently was hospitalized here for removal of foreign body/nail metal a week ago presented with the progressive swollen and painful post operated site on the left foot. Plan Plan A 53 years old male with past medical history of CAD, s/p cardiac stent, history of CT, CHFrEF 30%, T2 DM, HTN, HLD, peripheral neuropathy, asthma/COPD who recently was hospitalized here for removal of foreign body/nail metal a week ago presented with the progressive swollen and painful post operated site on the left foot. Plan # Left post operated foot cellulitis # S/p foreign metal body roscoe surgery over the left foot -left lower extremity MRI ruled out osteomyelitis and does not suggest abscess but limited evaluation due to post-contrast imaging -continue IV vancomycin, ceftriaxone 1 g IV daily and metronidazole 500 mg IV q.12h -Requested ID Dr. Pat for a consult -control pain with IV Dilaudid 0.5 mg q.4 hours as needed. -wound culture, wound care consultation was requested, appreciate it -PT eval # T2DM # Peripheral neuropathy - HGB A1c last time was 6.6 in june -started medium dose sliding scale insulin, glargine 6 units at bedtime for now, we will adjust according to his random blood sugar -continue gabapentin 100 mg p.o. q.8h for his peripheral neuropathic pain. # HTN # HLD # Hx of CAD, s/p stent, CT Hx # CHFrEF - 30 % -continue Coreg 25 mg p.o. daily, Lipitor 80 mg p.o. daily, amlodipine 10 mg p.o. daily, losartan 50 mg p.o. daily, Plavix 75 mg p.o. daily, aspirin 81 mg p.o. daily, Lasix 20 mg p.o. b.i.d. # normochromic normocytic anemia -most probably from the anemia of chronic disease VS early part of JEANNE -continuous daily CBC monitoring. 07/29/2024: Management per ICU team Chest x-ray is unremarkable. Off of the mechanical ventilation and sedation. We will continue Keppra, gabapentin. Currently with ceftriaxone, vancomycin and metronidazole. We will appreciate the ID recommendations. The acute hypoxemic respiratory failure is settling down. Most recent HGB A1c 6.6. Pain is controlled with Dilaudid. Hemoglobin is 12.3 on today. Awaiting EEG results. Continue Coreg 25 mg p.o. daily, Lipitor 80 mg p.o. daily, amlodipine 10 mg p.o. daily, losartan 50 mg p.o. daily, Plavix 75 mg p.o. daily, aspirin 81 mg p.o. daily, Lasix 20 mg p.o. b.i.d. CODE STATUS: Full code DVT prophylaxis: Sc heparin Analgesia/sedation: IV Dilaudid Lines/tubes: Peripheral IV GI prophylaxis: Protonix Nutrition: Carb controlled diet Prognosis: Guarded Disposition: Continue ICU care WE WILL RESUME THE CARE ONCE DOWNGRADED TO PCU. Date of Service: Jul 29, 2024 Billing Provider: JUSTICE LANGFORD MD Common Visit Codes: [id number] INP/OBS CARE(HIGH) PHILLIPEFRAIN, RES Jul 29, 2024 20:07 JUSTICE LANGFORD MD Jul 29, 2024 21:06
[2024-07-30] VITALS (14 sets, daily range): BP systolic 70–159; BP diastolic 51–87; PULSE 72–79; RESP 13–22; O2SAT 92–99
[2024-07-30] MEDS: mineral oil/petrolatum ophthal oint EACHEYE SCH (02:00)
[2024-07-30 06:04] LABS: EOSINOPHILS # (AUTO) 0.2 X10'3 (0-0.9); EOSINOPHILS % (AUTO) 2.2 % (0-6); HEMOGLOBIN 12.1 g/dl (14.0-17.9); LYMPHOCYTES # (AUTO) 1.4 X10'3 (1.1-4.8); MONOCYTES # (AUTO) 0.9 X10'3 (0-0.9); NEUTROPHILS # (AUTO) 8.2 X10'3 (1.8-7.7); WHITE BLOOD COUNT 10.7 X10'3 (4.5-11.0)
[2024-07-30 06:06] LABS: BASOPHILS % (AUTO) 0.3 % (0-1); HEMATOCRIT 36.5 % (42.0-52.0); LYMPHOCYTES % (AUTO) 12.8 % (21-51); MEAN CORPUSCULAR HEMOGLOBIN 29.1 PG (27.0-31.0); MEAN CORPUSCULAR VOLUME 88.3 FL (78-98); MEAN PLATELET VOLUME 7.4 FL (7.4-10.4); MONOCYTES % (AUTO) 8.1 % (2-12); NEUTROPHILS % (AUTO) 76.6 % (42-75); PLATELET COUNT 448 X10'3 (140-440); RED BLOOD COUNT 4.14 X10'6 (4.70-6.10); RED CELL DISTRIBUTION WIDTH 15.3 % (11.5-14.5)
[2024-07-30 06:30] LABS: ALANINE AMINOTRANSFERASE 49 U/L (12-78); ALBUMIN 2.8 G/DL (3.4-5.0); ALBUMIN/GLOBULIN RATIO 0.6 (1.1-1.5); ALKALINE PHOSPHATASE 99 IU/L (46-116); ANION GAP 11 (8-16); ASPARTATE AMINO TRANSFERASE 43 U/L (10-37); BILIRUBIN,TOTAL 0.5 MG/DL (0.1-1.0); BLOOD UREA NITROGEN 7 MG/DL (7-18); CHLORIDE 101 MMOL/L (99-107); CREATININE 0.88 MG/DL (0.60-1.10); GLUCOSE 91 MG/DL (70-104); MAGNESIUM 2.1 MG/DL (1.5-2.4); POTASSIUM 3.2 MMOL/L (3.5-5.1); SODIUM 137 MMOL/L (135-145); TOTAL CARBON DIOXIDE 24.8 MMOL/L (24-32); TOTAL PROTEIN 7.3 G/DL (6.4-8.2); eCRCL 84 ML/MIN; eGFR > 90 ML/MIN
[2024-07-30] MEDS: losartan 25mg tablet NG SCH (08:46)
[2024-07-30] MEDS ORDERED: HYDR-3965 PO (10:06)
[2024-07-30] MEDS ORDERED: EMPA10TA NG (10:06)
[2024-07-30] MEDS ORDERED: FURO40TA4 PO (10:06)
[2024-07-30] MEDS ORDERED: DOXY-243 PO (10:59)
[2024-07-30] MEDS ORDERED: AMOX-580 PO (10:59)
[2024-07-30] MEDS ORDERED: aspirin 81mg tab.chew PO SCH (11:06)
[2024-07-30] MEDS ORDERED: ascorbic acid 500mg tablet PO SCH (11:06)
[2024-07-30] MEDS ORDERED: acetaminophen 325mg tablet PO PRN (11:06)
[2024-07-30] MEDS ORDERED: citalopram 20mg tablet PO SCH (11:07)
[2024-07-30] MEDS ORDERED: atorvastatin 20mg tablet PO SCH (11:07)
[2024-07-30] MEDS ORDERED: carVEDilol 12.5mg tablet PO SCH (11:07)
[2024-07-30] MEDS ORDERED: clopidogrel 75mg tablet PO SCH (11:08)
[2024-07-30] MEDS ORDERED: DEXTROSE 15 GM of carb/4 tabs (each vial/BOTTLE has 4 tablets) PO PRN ×2 (11:08)
[2024-07-30] MEDS ORDERED: EMPAGLIFLOZIN 10 MG TABLET PO SCH (11:09)
[2024-07-30] MEDS ORDERED: docusate sodium 100mg/10ml UD cup PO PRN (11:09)
[2024-07-30] MEDS ORDERED: GABAPENTIN 300 MG/6 ML oral SOLUTION cup PO SCH (11:10)
[2024-07-30] MEDS ORDERED: lansoprazole 15mg solutab PO SCH (11:10)
[2024-07-30] MEDS ORDERED: furosemide 40 MG/4 ML oral solution UD cup PO SCH (11:10)
[2024-07-30] MEDS ORDERED: losartan 25mg tablet PO SCH (11:11)
[2024-07-30] MEDS ORDERED: POTASSIUM CHLORIDE 20 MEQ/15 ML oral solution PO PRN ×2 (11:12→11:13)
[2024-07-30] MEDS ORDERED: magnesium hydroxide 30ml (MOM) UD suspension PO PRN (11:13)
[2024-07-30] MEDS ORDERED: spironolactone 25 MG tablet PO SCH (11:14)
--- NOTE | 2024-07-30 11:33 | PROGRESS NOTE ---
Subjective Subjective Patient seen and examined today. He is feeling better today. Comfortably lying on the bed. He still has pain in his left foot. Reason for visit: Intubated and sedated on mechanical ventilation. Reviewed: Care Plan, H&P, Labs, Medications, Radiology Daily Progress Note Exam Vitals Vital Signs Date Time Temp Pulse Resp B/P (MAP) Pulse Ox O2 Delivery O2 Flow Rate FiO2 07/30/24 10:00 75 17 105/65 (78) 98 Nasal Cannula 2.0 07/30/24 09:00 99.1 07/29/24 20:24 36 Result Diagram: 07/30/24 0418 07/30/24 0418 Exam HEENT examination: N/C/AT, PERRL, intubated Neck: Supple with no jugular venous distention and no lymphadenopathy. Chest: Symmetric expansion bilaterally. Pulmonary: Clear to auscultation bilaterally with no wheezing, no rales rhonchi. Cardiovascular: Regular rate and rhythm with normal S1 and S2 without any S3-S4 gallop. Abdomen: Soft nontender no organomegaly. Extremities: Left foot wrapped in wound dressing. Results Coagulation Studies Laboratory Tests Test 07/27/24 12:13 Prothrombin Time 10.4 SECONDS (9.0-12.0) INR International Normalized Ratio 1.0 INR Activated Partial Thromboplast Time 27 SECONDS (22-32) Coagulation Comments VTE VTE Risk Score VTE Risk Score Reference Ranges: Score 0-1 = Low Risk (Aggressive mobilization; early ambulation; no VTE prophylaxis required) Score 2: Moderate Risk (Intermittent/Pneumatic Compression Device OR Lovenox/Heparin/Coumadin) Score 3-4: High Risk (Intermittent/Pneumatic Compression Device AND Lovenox/Heparin/Coumadin) Score > or = 5: Highest Risk (Intermittent/Pneumatic Compression Device AND Lovenox/Heparin/Coumadin) Assessment/Plan Assessment A 53 years old male with past medical history of CAD, s/p cardiac stent, history of [place], CHFrEF 30%, T2 DM, HTN, HLD, peripheral neuropathy, asthma/COPD who recently was hospitalized here for removal of foreign body/nail metal a week ago presented with the progressive swollen and painful post operated site on the left foot. Plan A 53 years old male with past medical history of CAD, s/p cardiac stent, history of [place], CHFrEF 30%, T2 DM, HTN, HLD, peripheral neuropathy, asthma/COPD who recently was hospitalized here for removal of foreign body/nail metal a week ago presented with the progressive swollen and painful post operated site on the left foot. Plan # Status post respiratory : CO2 retention may have been due to over-sedation with the Dilaudid. # Left post operated foot cellulitis # S/p foreign metal body roscoe surgery over the left foot -left lower extremity MRI ruled out osteomyelitis and does not suggest abscess but limited evaluation due to post-contrast imaging -continue IV vancomycin, ceftriaxone 1 g IV daily and metronidazole 500 mg IV q.12h -ID consultation and recommendation still pending. Patient is seen by Dr. Donohue this morning. -control pain with IV Dilaudid 0.5 mg q.4 hours as needed. -wound culture, wound care consultation was requested, appreciate it -PT eval # T2DM # Peripheral neuropathy - HGB A1c last time was 6.6 in june -started medium dose sliding scale insulin, glargine 6 units at bedtime for now, we will adjust according to his random blood sugar -continue gabapentin 100 mg p.o. q.8h for his peripheral neuropathic pain. # HTN # HLD # Hx of CAD, s/p stent, [place] Hx # CHFrEF - 30 % -continue Coreg 25 mg p.o. daily, Lipitor 80 mg p.o. daily, amlodipine 10 mg p.o. daily, losartan 50 mg p.o. daily, Plavix 75 mg p.o. daily, aspirin 81 mg p.o. daily, Lasix 20 mg p.o. b.i.d. # normochromic normocytic anemia -most probably from the anemia of chronic disease VS early part of JEANNE -continuous daily CBC monitoring. CODE STATUS: Full code DVT prophylaxis: Sc heparin Analgesia/sedation: IV Dilaudid Lines/tubes: Peripheral IV GI prophylaxis: Protonix Nutrition: Carb controlled diet Prognosis: Guarded Disposition: Downgrade to PCU today. Expected Outcome/Goals Expected Outcomes/Goals: maintain stable wt, TF with prolonged intubation, bowel regularity, wound healing DI GONCALVES MD Jul 30, 2024 11:33
[2024-07-30] MEDS: ferrous sulfate 300mg/5ml UD oral liquid PO SCH (13:05)
[2024-07-30] MEDS: POTASSIUM CHLORIDE 20 MEQ/15 ML oral solution PO SCH (13:05)
--- NOTE | 2024-07-30 14:08 | DISCHARGE SUMMARY-Residence ---
Discharge Summary Providers to CC Resident Creating Document: JULI DENNIS RES ~ Discharge Summary Admission Diagnosis: Left foot post op complicated with cellulitis and abscess Hospital Course DATE OF ADMISSION: 07/27/2024 DATE OF DISCHARGE: 07/30/2024 Hospital course same as mentioned discharge summary. Discharge Diagnosis\Comment: # Status post respiratory : CO2 retention may have been due to over-sedation with the Dilaudid. # Left post operated foot cellulitis # S/p foreign metal body roscoe surgery over the left foot # T2DM # Peripheral neuropathy # toxic/metabolic/infectious encephalopathy ruled out, encephalopathy likely secondary to medication use # HTN # HLD # Hx of CAD, s/p stent, KS Hx # CHFrEF - 30 % # normochromic normocytic anemia Operations\Procedures: EEG Consultants: Tele neuro [employer] Dr. Noyola Complications: None Condition on DC: Stable New Medications: Amox Tr/Potassium Clavulanate 875/125 MG (Augmentin 875/125 MG) 875 Mg-125 Mg Tablet 1 TAB PO Q12H for 10 Days, #20 TAB Doxycycline Hyclate (Doxycycline Hyclate) 100 Mg Tablet.dr 100 MG PO BID, #20 TAB Furosemide 40 MG (Lasix) 40 Mg Tablet 1 TAB PO BID, #60 TAB Hydrocodone Bit/Acetaminophen 5/325 MG ([place] 5/325 MG) 5 Mg/325 Mg Tablet 1 TAB PO Q6H PRN for pain, #20 TAB Empagliflozin (Jardiance) 10 Mg Tablet 10 MG NG DAILY, #30 TAB Continued Medications: Ascorbic Acid (Ascorbic Acid) 500 Mg Tab.chew 1 TAB PO DAILY Aspirin (Aspirin EC) 81 Mg Tablet.dr 1 TAB PO DAILY for 30 Days, #30 TAB Atorvastatin Calcium (Atorvastatin Calcium) 80 Mg Tablet 1 TAB PO DAILY Carvedilol (Carvedilol) 25 Mg Tablet 1 TAB PO DAILY Citalopram Hydrobromide* (Celexa*) 20 Mg Tablet 1 TAB PO DAILY Clopidogrel Bisulfate (Clopidogrel) 75 Mg Tablet 1 TAB PO DAILY for 30 Days, #30 TAB 0 Refills Do not stop medication unless instructed by prescriber. Ferrous Sulfate* (Ferrous Sulfate*) 325 Mg Tablet 1 TAB PO TID, TAB Gabapentin (Gabapentin) 100 Mg Capsule 1 CAP PO Q8H for 30 Days, #90 CAP 0 Refills Hydrocodone Bit/Acetaminophen (Hydrocodon-Acetaminophn 10-325 tablet) 10mg- 325mg Tablet 1 EACH PO Q6H PRN for severe pain (7-10), #14 TAB Insulin Aspart (Novolog) 100 Unit/Ml (3 Ml) Insuln.pen 4 UNITS SQ TIDAC Insulin Glargine,Hum.rec.anlog (Basaglar Kwikpen U-100) 100 Unit/Ml (3 Ml) Insuln.pen 70 UNITS SUBCUT DAILY Ipratropium/Albuterol Sulfate (Combivent Respimat Inhal [place]) 20 Mcg-100 Mcg/Actuation Aer.w.adap 1 PUFF IH Q6H PRN for SOB or wheezing Losartan Potassium* (Cozaar*) 25 Mg Tablet 2 TAB PO DAILY for 30 Days, #30 TAB Nitroglycerin (Nitroglycerin) 0.4 Mg Tab.subl 1 TAB SL PRN PRN for chest pain, #25 TAB Take one tablet every 5 minutes PRN chest pain if you require a 3rd tablet come to the ED tamiko. Pantoprazole Sodium (PROTONIX tablet) 40 Mg Tablet.dr 1 TAB PO DAILY for 30 Days, #30 TAB 3 Refills Potassium Chloride (Potassium Chloride) 10 Meq Tab.prt.sr 1 TAB PO TID for 30 Days, #30 TAB 0 Refills Tirzepatide (Mounjaro) 7.5 Mg/0.5 Ml Pen.injctr 7.5 MG SQ Q7D Discontinued Medications: Amlodipine Besylate (Amlodipine Besylate) 10 Mg Tablet 1 TAB PO DAILY for 30 Days, #30 TAB Amox Tr/Potassium Clavulanate 875/125 MG (Augmentin 875/125 MG) 875 Mg-125 Mg Tablet 1 TAB PO BID, #14 TAB Furosemide (Furosemide) 20 Mg Tablet 1 TAB PO BID Discharge Summary: As per HPI: A 53 years old male with past medical history of CAD, s/p cardiac stent, history of KS, CHFrEF 30%, T2 DM, HTN, HLD, peripheral neuropathy, asthma/COPD who recently was hospitalized here for removal of foreign body/nail metal a week ago presented with the progressive swollen and painful post operated site on the left foot. He endorsed that he might have stepped on the nail with his neuropathic numbness left foot two weeks ago but he did not noticed any changes because of his neuropathic left foot. He went to carrot tier appointment last Tuesday and he ordered imaging but ended up to the ER found that he has a metal/ nail in between of his left 3rd and 4th interspace. He only noticed about the redness and swelling at the that time. He underwent the roscoe nail embedded surgery in his left foot which was complicated with the NSTEMI what demanded him to be placed in ICU. Last Tuesday, he was released with Oral Augmentin on discharge but he could not manage to take PO ABx and found that he has been having the progressive pain on steps and redness with the swollen over his left foot. He is using the walker or crutches for ambulation. He has received the tetanus shot on the last admission. He denied any discoloration with black or foul smelling discharge. Hospital course: Was found to have elevated ESR, CRP and WBCs. started on IV antibiotics vancomycin, ceftriaxone and metronidazole. MRI was done which ruled out osteomyelitis. Pain was controlled with IV Dilaudid, wound care consulted. Was started on hypoglycemia protocol for diabetes A1c 6.6. On 07/28/2024 he was hypoxic and hypercapnic a rapid response was called likely secondary to CO2 narcosis, patient had to be intubated and sedated and was transferred to the ICU. Seizures was also suspected, and he was started on Keppra. Also on gabapentin 100 p.o. t.i.d., EEG was done. ID was consulted. EEG impression: Diffuse slowing and occasional brought bifrontal generalized discharges with triphasic morphology. Diffuse slowing is nonspecific and may be seen in setting of diffuse cerebral dysfunction. Extubated and has been saturating well on room air. ID has recommended that he continues on Augmentin 875-125 p.o. b.i.d. and doxycycline 100 p.o. b.i.d. for 10 days. His hospital course is uncomplicated he is hemodynamically stable on the day of discharge and physical exam is as follows: General: Well alert, well oriented, not confused, not agitated, not in acute distress, well cooperated during the physical. HEENT: Conjunctive are pink, sclerae clear, no icterus, pupil is equal in both sides, reactive to light, no ear discharge, no pharyngeal erythema or an edema, mouth and lips are moist. Neck: Supple, no JVD, no lymphadenopathy and thyromegaly. Lungs:Equal air entry on both lungs, no additional sounds Heart: S1-S2 regular sinus rhythm and, regular rate, no gallops, no rubs, no murmurs Abdomen: No visible peristalsis, Bowel sounds present on auscultation, soft, nontender, no guarding, no rigidity Extremities: No obvious deformities, no pitting edema bilaterally, capillary refill intact, able to wiggle toes both sides, peripheral pulsations are intact on both sides Left foot- covered in the dressing. WATCH PARTS INSPECTOR: No focal neurological deficits, no motor weakness in all 4 extremities, could move all 4 extremities. Left foot up to groin level, and up to ankle level on the right foot, bilateral UL up to wrist levels- diminished sensory Musculoskeletal: No joint swelling, deformities, inflammations, and no scoliosis and back tenderness Skin: No active skin lesions and rashes Discharge medications can be found above. Patient is recommended to follow up with PCP within a week. *Problems/Diagnosis: (1) Cellulitis Status: Acute Total Time Spent on D/C: > 30 Minutes Addendum mrsa foot wound infection, poa Date of Service: Jul 30, 2024 Billing Provider: JUSTICE LANGFORD MD Common Visit Codes: 59022-GSA/OBS DISCH DAY >30min Problem Qualifiers (1) Cellulitis: Site of cellulitis: extremity Site of cellulitis of extremity: lower extremity Laterality: left Qualified Codes: L03.116 - Cellulitis of left lower limb JULI DENNIS RES Jul 30, 2024 13:56 JUSTICE LANGFORD MD Jul 30, 2024 20:46
--- NOTE | 2024-07-30 20:25 | CONSULTATION ---
DATE OF CONSULTATION: 07/30/2024 DICTATING PHYSICIAN: Gabe Donohue MD REASON FOR CONSULTATION: I am seeing the patient at the request of Dr. Carr for evaluation of a left postoperative diabetic foot infection. HISTORY OF PRESENT ILLNESS: The patient is a 53-year-old male with longstanding diabetes, who was just recently in this hospital and required a surgical procedure by Dr. Escalante. He apparently had a foreign body at the left foot that had to be removed. This was either a small nail or a staple. This was near the third toe. I believe he was discharged on the after a 3-day hospitalization and he was sent home with Augmentin to be taken for about a week. He returned to this facility about 5 days later with worsening infection of the foot. MRSA has been identified on culture. Strangely, he did require admission to the ICU with possible seizure. He was briefly intubated. He is now extubated and hoping to go home soon. He is receiving broad-spectrum therapy with vancomycin, ceftriaxone, and metronidazole. PAST MEDICAL HISTORY: * Diabetes mellitus that appears to be under good control with a hemoglobin A1c of 6.6%. I believe he is insulin dependent. * Peripheral neuropathy. * Depression. * Hypertension. * Dyslipidemia. * Coronary artery disease with a history of percutaneous cardiac intervention. * Heart failure with reduced ejection fraction. PAST SURGICAL HISTORY: Left foot surgery described above. ALLERGIES: IODINATED CONTRAST. MEDICATIONS: * Vancomycin. * Ceftriaxone. * Metronidazole. * Spironolactone. * Potassium. * Lansoprazole. * Losartan. * Gabapentin. * Furosemide. * Ferrous sulfate. * Jardiance. * Aspirin. * Clopidogrel. * Citalopram. * Carvedilol. * Atorvastatin. * Vitamin C. * Keppra. * Insulin Glargine. * Subcutaneous heparin. * Humalog. FAMILY HISTORY: Noncontributory. SOCIAL HISTORY: He is single and lives locally in [place]. He does have a smoking history and apparently quit several months ago. He does not drink alcohol. PHYSICAL EXAMINATION: VITAL SIGNS: He is afebrile with stable vital signs. GENERAL: He is a pleasant middle-aged male, lying in bed, looking stable. HEENT: Sclerae anicteric. Mouth is clear. NECK: Supple. LUNGS: Clear to auscultation bilaterally. HEART: Regular rate and rhythm. ABDOMEN: Soft, nontender, and nondistended. EXTREMITIES: He has a palpable dorsalis pedis pulse at the left foot. He does have some maceration of the webspace on either side of the third toe. This is more prominent at the lateral aspect. He has some shallow ulceration at the base of the third toe at the plantar aspect wrapping laterally to the dorsal aspect. There is a mild erythema of the foot. LABORATORY DATA: His white blood cell count is 10,700, hemoglobin 12, platelets 448,000. Creatinine 0.88. Culture did grow MRSA. MRI was performed and there was no evidence of osteomyelitis or abscess. IMPRESSION: * Left diabetic foot infection that developed in the postoperative setting after a foreign body removed from that foot. He was initially treated with Augmentin. MRSA has now been identified on culture. There is no evidence of osteomyelitis. He appears to have reasonable perfusion of the left foot. * Insulin-dependent diabetes that is under good control. He does have peripheral neuropathy at baseline. PLAN: I did speak with Dr. Carr. I do think he can transition over to oral therapy. I would keep him on Augmentin with the addition of doxycycline to cover MRSA. He should only need another 10 days of therapy to complete a 2-week course. He will need appropriate wound care. Hopefully, he will do well and he should be able to go home today if he is cleared from a neurological standpoint. I thank you for allowing me to participate in the patient's care. Gabe Donohue MD TID: [id number] RECEIPT: [id number] SO/BELÉN/SHAHANA
[2024-07-30] MEDS ORDERED: VANCOMYCIN LEVEL IV ONE (22:30)
[2024-07-31] MEDS ORDERED: LevETIRAcetam 500 MG in NORMAL SALINE 100ml IV.SOLN IV SCH (08:00)
== END 2024-07-30 17:12 | disposition home health service (06) | DRG 721 ==
LOC: ER 08:02 → ED HOLD 11:22 → ORTHO 4S 14:50 → CICU 2S 07-28 22:06
PROVIDERS: ADMIT Internal Medicine; ATTEND Internal Medicine
PROC: 5A1935Z Respiratory Ventilation, Less than 24 Consecutive Hours (ICD-10-PCS; 2024-07-28)
PROC: 0BH17EZ Insertion of Endotracheal Airway into Trachea, Via Natural or Artificial Opening (ICD-10-PCS; 2024-07-28)
PROC: 4A10X4Z Monitoring of Central Nervous Electrical Activity, External Approach (ICD-10-PCS; principal; 2024-07-29)
DX: T81.40XA Infection following a procedure, unspecified, initial encounter (principal); J96.01 Acute respiratory failure with hypoxia; G93.40 Encephalopathy, unspecified; E87.29 Other acidosis; E11.40 Type 2 diabetes mellitus with diabetic neuropathy, unspecified; D64.9 Anemia, unspecified; E11.628 Type 2 diabetes mellitus with other skin complications; L03.116 Cellulitis of left lower limb; I50.22 Chronic systolic (congestive) heart failure; I11.0 Hypertensive heart disease with heart failure; R56.9 Unspecified convulsions; J96.02 Acute respiratory failure with hypercapnia; Y83.8 Other surgical procedures as the cause of abnormal reaction of the patient, or of later complication, without mention of misadventure at the time of the procedure; F32.A Depression, unspecified; J44.89 Other specified chronic obstructive pulmonary disease; E78.00 Pure hypercholesterolemia, unspecified; F41.9 Anxiety disorder, unspecified; I25.10 Atherosclerotic heart disease of native coronary artery without angina pectoris; I25.2 Old myocardial infarction; Z79.4 Long term (current) use of insulin; Z82.49 Family history of ischemic heart disease and other diseases of the circulatory system; Z87.891 Personal history of nicotine dependence; Z95.5 Presence of coronary angioplasty implant and graft; Y92.89 Other specified places as the place of occurrence of the external cause
CPT/HCPCS: 36415; 36600; 71045; 73630; 73718; 80048; 80053; 80202; 82803; 82948; 83605; 83735; 83880; 84100; 84145; 84484; 85018; 85025; 85610; 85651; 85730; 86140; 87070; 87077; 87081; 87186; 93005; 94002; 94003; 94640; 94760; 94799; 95720; 96365; 97116; 97161; 97530; 99285; A4615; A4649; A6222; A6258; A6446; A6449; A9900; C1758; G0378; J0696; J1644; J1815; J1938; J1953; J2270; J2405; J2543; J3010; J3370; J3490; J7030; J7040

== ENCOUNTER 2024-08-06 06:45 | Day surgery (SDC) | payer MEDICAID ==
[~2024-08-06] VITALS: Ht 165.1 cm; Wt 75.1 kg
[2024-08-06] VITALS (9 sets, daily range): BP systolic 121–158; BP diastolic 63–85; PULSE 71–79; RESP 10–20; TEMP 98.2; O2SAT 92–96
[~2024-08-06 06:45] MED LIST changes: -AMLO10TA13 PO; +DOXY-243 PO; +EMPA10TA NG; -FURO20TA4 PO; +FURO40TA4 PO; +HYDR-3965 PO
--- NOTE | 2024-08-06 07:15 | ELECTROCARDIOGRAPH REPORT ---
[facility] Test Date: 2024-08-06 Test Time: 07:11:10 Pat Name: DMITRI FERRO Department: [facility] Patient ID: [facility]-[id number] Room: Gender: M Framing And Hanging: GREGOR : 1970 Requested By: TIFFANY LEE Order Number: [id number] Reading MD: Dr. Shad Garduno Measurements Intervals Melber Rate: 75 P: -40 LA: 217 QRS: 25 QRSD: 99 T: 164 QT: 416 QTc: 465 Interpretive Statements Sinus rhythm Prolonged LA interval Borderline low voltage, extremity leads Abnrm T, probable ischemia, anterolateral lds Electronically Signed On 08-07-2024 8:11:[address] Shad Garduno Please click the below link to view image of tracing.
[2024-08-06] MEDS ORDERED: DAPA5TAB PO (07:37)
[2024-08-06] MEDS ORDERED: FURO40TA4 PO (07:37)
[2024-08-06] MEDS ORDERED: AMLO-708 PO (07:37)
[2024-08-06] MEDS ORDERED: VENL-191 PO (07:37)
[2024-08-06] MEDS ORDERED: BACL10TA2 PO (07:37)
[2024-08-06] MEDS ORDERED: ISOS30TA84 PO (07:37)
[2024-08-06] MEDS ORDERED: EMPA10TA PO (07:37)
[2024-08-06] MEDS ORDERED: HYDR-3972 PO (07:37)
[2024-08-06] MEDS ORDERED: PANT40TA54 PO (07:37)
[2024-08-06] MEDS ORDERED: NITR0.4T51 SL (07:37)
[2024-08-06] MEDS ORDERED: PREG50CA65 PO (07:37)
[2024-08-06] MEDS ORDERED: IPRA4AER INH (07:39)
[2024-08-06 07:57] LABS: BASOPHILS # (AUTO) 0.1 X10'3 (0-0.2); BASOPHILS % (AUTO) 0.7 % (0-1); EOSINOPHILS # (AUTO) 0.4 X10'3 (0-0.9); EOSINOPHILS % (AUTO) 3.7 % (0-6); HEMATOCRIT 37.6 % (42.0-52.0); HEMOGLOBIN 12.5 g/dl (14.0-17.9); LYMPHOCYTES # (AUTO) 1.6 X10'3 (1.1-4.8); LYMPHOCYTES % (AUTO) 16.7 % (21-51); MEAN CORPUSCULAR HEMOGLOBIN 29.1 PG (27.0-31.0); MEAN CORPUSCULAR HGB CONC 33.1 g/dL (33.0-36.5); MEAN CORPUSCULAR VOLUME 87.7 FL (78-98); MEAN PLATELET VOLUME 6.9 FL (7.4-10.4); MONOCYTES # (AUTO) 0.6 X10'3 (0-0.9); NEUTROPHILS % (AUTO) 72.9 % (42-75); PLATELET COUNT 507 X10'3 (140-440); RED BLOOD COUNT 4.29 X10'6 (4.70-6.10); WHITE BLOOD COUNT 9.6 X10'3 (4.5-11.0)
[2024-08-06 08:05] LABS: PROTHROMBIN TIME 10.5 SECONDS (9.0-12.0)
[2024-08-06 08:09] LABS: ALBUMIN 3.9 G/DL (3.4-5.0); ANION GAP 10 (8-16); BLOOD UREA NITROGEN 10 MG/DL (7-18); BUN/CREATININE RATIO 9.7 (10.0-20.0); CALCIUM 9.3 MG/DL (8.5-10.1); CHLORIDE 101 MMOL/L (99-107); CREATININE 1.03 MG/DL (0.60-1.10); GLUCOSE 153 MG/DL (70-104); MAGNESIUM 1.6 MG/DL (1.5-2.4); POTASSIUM 3.5 MMOL/L (3.5-5.1); SODIUM 140 MMOL/L (135-145); TOTAL CARBON DIOXIDE 29.3 MMOL/L (24-32); eCRCL 72 ML/MIN; eGFR 76 ML/MIN
[2024-08-06] MEDS: diphenhydrAMINE 25mg capsule PO PRN (08:12)
[2024-08-06] MEDS: normal saline 1,000 ML IV SCH (08:12)
[2024-08-06] MEDS: sodium bicarbonate 1meq/ml syr 150 ML in dextrose 5%-water 1,000 ML IV ONE (08:35)
[2024-08-06] MEDS ORDERED: midazolam 1 mg/ML 2ml injection ONE ×2 (08:51→09:43)
[2024-08-06] MEDS ORDERED: fentaNYL/PF 50MCG/1 ML 2ML syringe ONE (08:51)
[2024-08-06] MEDS ORDERED: verapamil 2.5 mg/ml inj IV ONE (08:51)
[2024-08-06] MEDS ORDERED: iohexol 350 MG/ML 50ML vial IV ONE (08:51)
[2024-08-06] MEDS ORDERED: nitroGLYCERIN 500mcg/5mL D5W 5 ML IV ONE (08:52)
[2024-08-06] MEDS ORDERED: LIDOcaine 1% (10mg/ml) 2ml vial ONE (08:52)
[2024-08-06] MEDS ORDERED: heparin 1,000unit/ml 10ml vial 0 ML ONE (08:52)
[2024-08-06] MEDS ORDERED: iohexol 350MG/ML 100ml bottle IV ONE ×3 (08:52→11:08)
[2024-08-06] MEDS: hydrocortisone sod succ/PF 100mg/2ml inj. IV ONE (09:20)
[2024-08-06] MEDS ORDERED: LIDOcaine 1% 30ml preserv. free vial ONE (10:19)
[2024-08-06] MEDS ORDERED: phenylephrine 10mg/ml inj. ONE (10:41)
[2024-08-06] MEDS ORDERED: DOPamine 400mg/D5W 250ml 0 ML IV ONE (10:41)
[2024-08-06] MEDS ORDERED: heparin 1,000unit/ml 10ml vial 10 ML ONE (11:11)
[2024-08-06] MEDS ORDERED: clopidogrel 300mg tablet ONE (11:24)
[2024-08-06] MEDS ORDERED: HYDROcodone/acetaminophen 10/325mg tab PO PRN (12:05)
[2024-08-06] MEDS ORDERED: ondansetron/PF 4mg/2ml inj IV PRN (12:05)
[2024-08-06] MEDS ORDERED: proCHLORperazine 10 MG/2 ml inj IV PRN (12:05)
[2024-08-06] MEDS ORDERED: HYDROcodone/acetaminophen 5mg/325mg tablet PO PRN (12:05)
[2024-08-06] MEDS: aspirin 325mg tablet PO ONE (12:22)
[2024-08-06] MEDS: mag hydrox/Alum hydrox/simeth 30ml oral suspension PO ONE (12:32)
--- NOTE | 2024-08-06 15:11 | CARDIOLOGY REPORT ---
DATE OF SERVICE: 08/06/2024 DICTATING PHYSICIAN: TIFFANY LEE DO CARDIAC CATHETERIZATION REPORT REFERRING PHYSICIAN: Colt West MD CLINICAL HISTORY: This 53-year-old man has had previous stenting procedures directed at the proximal and mid LAD, the distal circ, and to the more proximal right coronary. He has had atrial fibrillation recently that was associated with some pain and a rise in cardiac enzymes. He also has some degree of chest pressure with exertion. PROCEDURES PERFORMED: * Left heart catheterization. * Left ventriculography. * Selective coronary arteriography. * PTCA/stent placement (proximal LAD). * 60 minutes conscious sedation supervision. DESCRIPTION OF THE PROCEDURE: The patient was sedated with fentanyl and Versed. He was then prepared and draped in the usual manner. The right radial area was infiltrated with 1% lidocaine. Using a micropuncture set and a Seldinger technique, a 6-Finnish sheath was placed in the radial artery. 200 mcg of nitroglycerin and 2.5 mg of verapamil were directly injected into the right radial artery. 5000 units of heparin were given directly into a peripheral IV. Left heart catheterization and left ventriculography were performed using a 6-Finnish pigtail catheter. Coronary arteriography was performed using a 6-Finnish Kimny catheter. PTCA/STENT PLACEMENT: The patient was given an additional 5000 units of heparin. The left main coronary was engaged with a 6-Finnish 3.5 XB LAD guiding catheter. A Choice PT2 guidewire was passed down through the LAD and positioned distally. A tight proximal stenosis was initially dilated with a 3 x 15 balloon, because of an incomplete inflation of the most proximal part of the lesion, the compliant balloon was replaced with a 3 x 15 mm noncompliant balloon, which was ultimately inflated to 25 atmospheres. The residual stenosis was then covered with a 3 x 18 mm Xience drug-eluting stent. Additionally, angiography demonstrated a small very proximal segment not adequately covered; therefore, a 3 x 8 mm Xience stent was positioned across this residual most proximal stenosis and deployed at 20 atmospheres. After test injections demonstrated stability of the treated area, final arteriography was performed. The radial sheath was removed and Vasc band was applied. RESULTS: HEMODYNAMIC DATA: The left ventricular end diastolic pressure was 22 mmHg. There was no gradient across the aortic valve. LEFT VENTRICULOGRAM: The left ventriculogram was technically satisfactory. The visually estimated ejection fraction was 65%. A stent was visible in the proximal and mid LAD, and there appeared to be double stenting of a portion of the mid LAD stent complex. A stent was also visible in the distal circumflex coronary artery at the origin of a posterior descending branch. The right coronary was not opacified since it has been previously demonstrated to be obstructed. CORONARY ARTERIOGRAPHY: The coronary arteriograms were technically satisfactory. The patient had a right system dominance that was not identified because of right coronary occlusion. LEFT MAIN CORONARY ARTERY: The left main was a large, very short vessel immediately trifurcating into left anterior descending, intermediate, and circumflex coronary arteries. LEFT ANTERIOR DESCENDING CORONARY ARTERY: The LAD was a medium-sized vessel with a transapical distribution. There was a somewhat long but small-caliber diagonal branch taking its origin proximally. There were no other diagonals of any significance emanating from the LAD. INTERMEDIATE ARTERY: The intermediate artery was a very tiny branch with about a 90% stenosis in it proximally. CIRCUMFLEX CORONARY ARTERY: The circumflex was a large vessel with a small long first obtuse marginal, 2 additional smaller obtuse marginals, a small to medium-sized inferior obtuse marginal, and a medium-sized posterolateral branch. A stent leading to the inferior obtuse marginal was widely patent. The circumflex coronary artery proximal to this distal most stent was narrowed by about 40%. RIGHT CORONARY ARTERY: Although not opacified on this occasion, previous angiography has demonstrated that it is occluded. PTCA/STENT PLACEMENT: Following balloon angioplasties and stenting of a 90% stenosis in the proximal LAD, there was no significant residual stenosis and brisk runoff distally. CONCLUSIONS: * Obstructive coronary artery disease manifested as follows: A. Old 100% occlusion of the right coronary. B. New 90% stenosis involving the proximal LAD, which is almost at the ostium of the vessel. C. 40% narrowing of the far distal circumflex coronary artery. * New 90% stenosis of the LAD successfully stented to no significant residual stenosis. PHYLICIA flow before and after intervention was graded as 3. * Previously placed stents in the proximal mid LAD, in the distal LAD, and in the distal circumflex are widely patent. * Left ventricular function appears to be normal. The estimated LVEF was at least 60%. RECOMMENDATIONS: Ongoing medical therapy. TIFFANY LEE DO TID: [id number] RECEIPT: [id number] BLANKA/ZARIA
== END 2024-08-06 15:00 | disposition home or self-care (01) ==
LOC: SSTAY O 06:45
PROVIDERS: ATTEND Internal Medicine Cardiovascular Disease
DX: I25.10 Atherosclerotic heart disease of native coronary artery without angina pectoris (principal); Z79.899 Other long term (current) drug therapy; I48.91 Unspecified atrial fibrillation; Z98.890 Other specified postprocedural states
CPT/HCPCS: 36415; 80048; 82948; 83735; 85025; 85610; 93005; 93458; 99152; 99153; C1874; C9600; J1644; J1720; J2003; J2250; J3010; J3490; J7030; J7070; Q0163; Q9967; A6258; A6449; C1725; C1751; C1769; C1894; J1265; J2371

== ENCOUNTER 2024-08-18 06:21 | Inpatient (IN) | payer MEDICAID ==
[~2024-08-18] VITALS: Ht 165.1 cm; Wt 73.0 kg
[~2024-08-18 06:21] MED LIST changes: +AMLO-708 PO; -AMOX-580 PO; +BACL10TA2 PO; +DAPA5TAB PO; -EMPA10TA NG; +EMPA10TA PO; -GABA-530 PO; -HYDR-3965 PO; -IPRA4AER IH; +IPRA4AER INH; +ISOS30TA84 PO; -NITR0.4T48 SL; +NITR0.4T51 SL; -PANT-47 PO; +PANT40TA54 PO; +PREG50CA65 PO; +VENL-191 PO
--- NOTE | 2024-08-18 07:33 | RADIOLOGY REPORT ---
EXAM: XR Left Foot Complete, 3 or More Views CLINICAL INDICATION: FOOT PAIN TECHNIQUE: Frontal, lateral and oblique views of the left foot. COMPARISON: DI FOOT, COMPLETE (3VW MIN) on DOS: 07/27/24, DI FOOT, COMPLETE (3VW MIN) on DOS: 5 FINDINGS: BONES/JOINTS: See below. SOFT TISSUES: Soft tissue swelling without acute fracture. No radiopaque foreign body. OTHER FINDINGS: . IMPRESSION: 1. Soft tissue swelling without acute fracture. 2. If symptoms persist, further evaluation with CT is recommended.
--- NOTE | 2024-08-18 07:33 | RADIOLOGY REPORT ---
EXAM: XR Chest, 1 View CLINICAL INDICATION: SOB TECHNIQUE: Frontal view of the chest. COMPARISON: DI CHEST,SINGLE VIEW on DOS: 07/29/24, DI CHEST,SINGLE VIEW on DOS: 07/28/24, DI CHEST,SIN GLE VIEW on DOS: 07/21/24, DI CHEST,SINGLE VIEW on DOS: 07/20/24, DI CHEST,SINGLE VIEW on DOS: 07/20/24 FINDINGS: LUNGS AND PLEURAL SPACES: Unremarkable. No consolidation. No pneumothorax. HEART: Unremarkable. No cardiomegaly. MEDIASTINUM: Unremarkable. Normal mediastinal contour. BONES/JOINTS: Unremarkable. No acute fracture. OTHER FINDINGS: . IMPRESSION: No acute cardiopulmonary process.
--- NOTE | 2024-08-18 07:45 | Physician Documentation ---
History of Present Illness ~ Chief Complaint: Toe pain Stated Complaint: FOOT PAIN Time Seen by MD: 06:59 Primary Medical Doctor: DR. JUAN ROSS Mode of Arrival: Ambulatory HPI 53-year-old male presenting with left middle toe pain. The patient is diabetic and was recently admitted and discharged for a diabetic foot wound between his left 3rd and 4th toes. Patient was on antibiotics and hospital and then later discharged on oral antibiotics. He states that he had a reaction to one of the antibiotics and had to be switched to a different one. He has been taking those but states that his toe pain has been worsening. Additionally he states that he now has noticed some purulent drainage from the wound. States that he has bad neuropathy and that he has decreased sensation in his left toes but he can definitely feel that the pain has gotten worse. The patient also was in hospital about 5-6 days ago for a STEMI where he had a stent placed. He was discharged several days ago and has been on medications for his heart as well. Denies any fever, chills, chest pain or any other associated symptoms. Tetanus witin 5 years: Yes Medication Reconciliation Allergies: Coded Allergies: iodine (Verified Allergy, Severe, 08/18/24) Per patient "Cardiac Arrest" when he received iodine amoxicillin (Verified Allergy, Mild, RASH, 08/18/24) PT TOLERATE ZOSYN 06/2024 Uncoded Allergies: CONTRAST DYE (Allergy, Unknown, 12/26/23) Scheduled Amlodipine Besylate (Amlodipine Besylate), 1 TAB PO DAILY, (Reported) Ascorbic Acid (Ascorbic Acid), 1 TAB PO DAILY, (Reported) Aspirin (Aspirin EC), 1 TAB PO DAILY, (Reported) Atorvastatin Calcium (Atorvastatin Calcium), 1 TAB PO DAILY, (Reported) Baclofen (Baclofen), 1 TAB PO DAILY, (Reported) Carvedilol (Carvedilol), 1 TAB PO DAILY, (Reported) Citalopram Hydrobromide* (Celexa*), 1 TAB PO DAILY, (Reported) Clopidogrel Bisulfate (Clopidogrel), 1 TAB PO DAILY, (Reported) Dapagliflozin Propanediol (Farxiga), 1 TAB PO DAILY, (Reported) Empagliflozin (Jardiance), 1 TAB PO DAILY, (Reported) Ferrous Sulfate* (Ferrous Sulfate*), 1 TAB PO TID, (Reported) Furosemide (Furosemide), 1 TAB PO BID, (Reported) Insulin Aspart (Novolog), 4 UNITS SQ TIDAC, (Reported) Insulin Glargine,Hum.rec.anlog (Basaglar Kwikpen U-100), 70 UNITS SUBCUT DAILY, (Reported) Ipratropium/Albuterol Sulfate (Combivent Respimat Inhal [address]), 1 PUFFS INH Q6H, (Reported) Isosorbide Mononitrate (Isosorbide Mononitrate Er), 1 TAB PO QAM, (Reported) Losartan Potassium* (Cozaar*), 2 TAB PO DAILY, (Reported) Nitroglycerin SL* (Nitrostat SL*), 1 TAB SL UD, (Reported) Pantoprazole Sodium (Pantoprazole Sodium), 1 TAB PO DAILY, (Reported) Potassium Chloride (Potassium Chloride), 1 TAB PO TID, (Reported) Pregabalin (Pregabalin), 1 CAP PO TID, (Reported) Tirzepatide (Mounjaro), 7.5 MG SQ Q7D, (Reported) Venlafaxine Hcl* (Effexor*), 2 TAB PO DAILY, (Reported) Discontinued Medications Doxycycline Hyclate (Doxycycline Hyclate), 100 MG PO BID Discontinued Reason: Auto Discontinued Hydrocodone Bit/Acetaminophen (Hydrocodon-Acetaminophn 10-325 tablet), 1 TABLET PO Q4H PRN for moderate or severe pain 4-10, (Reported) Discontinued Reason: Other Past Medical History Past Medical History: *CARDIOVASCULAR*, Angina, Coronary Artery Disease, Congestive Heart Failure, High Cholesterol, Hypertension, Myocardial Infarction, Asthma, Pneumonia, Diabetes, Anxiety Past Surgical History: angioplasty Patient History: (CAD) Coronary arteriosclerosis FATHER, , Age: 70, Cause: CHF (congestive heart failure) (30's) Siblings Siblings Siblings (DM Type 2) Diabetes mellitus type 2 MOTHER, , Age: 63, Cause: DM complication Siblings Siblings Siblings Other Past Family History: NONCONTRIBUTORY Alcohol Use: None Drug Use: none Lives with: Other Lives In: Home Occupation: employed Review of Systems All Other Systems at this time: Reviewed and Negative Physical Exam Vital Signs: Temperature: 98.0, Source: Oral, Heart Rate: 90, Respiratory Rate: 16, BP: 134/81, Pulse Oximetry: 100, Weight: 73.050 Physical Exam I have reviewed the triage vitals. CONST: Well developed and well nourished. In no acute distress HENT: Head Atraumatic EYES: Pupils are equal, round and reactive to light. Normal conjunctiva NECK: Normal range of motion. Supple. CARDIO: Normal rate and regular rhythm. No murmurs, rubs, or gallops. S1, S2. PULM/CHEST: No respiratory distress. Lungs clear to auscultation. No wheeze ABD: Soft and nontender. Nondistended. Bowel sounds normal. No guarding. : Exam deferred MSK: Left foot-there is a diabetic ulcer present between the 3rd and 4th digits with purulent drainage. There is some surrounding erythema and tenderness to palpation. There is some black and blue discoloration of the 3rd digit with significantly decreased sensation. NEURO: Alert and oriented to person, place and time. Moving all extremities SKIN: Warm and dry. PSYCH: Normal mood and affect. Good eye contact. Progress Results/Orders Results/Orders Orders - DESTINI BURCIAGA MD Culture Blood (08/18/24 06:40) Chest,Single View (08/18/24 06:40) Monitor (08/18/24 06:40) Oxygen (08/18/24 06:40) Saline Lock (08/18/24 06:40) Foot, Complete (3vw Min) (08/18/24 06:40) Ct Lower Extremity (08/18/24 07:47) Page Hospitalist (08/18/24 10:16) Fill Out Med Reconciliation (08/18/24 10:16) Completed Orders - DESTINI BURCIAGA MD Chest,Single View (08/18/24 06:40) Lacticsepsis (08/18/24 06:40) Foot, Complete (3vw Min) (08/18/24 06:40) Vancomycin/Ns 1 Gm Add-[place] (Vancomyc (08/18/24 07:45) Normal Saline 1000ml (Sodium Chloride 10 (08/18/24 07:45) Piperacillin/Tazo 3.375gm/50ml (Zosyn 3. (08/18/24 07:45) Hs Troponin I W Calculations (08/18/24 07:45) Hs Troponin I W Calculations (08/18/24 09:45) Ct Lower Extremity (08/18/24 07:47) Cbc/Diff (08/18/24 08:17) CMP (08/18/24 08:17) Procalcitonin (08/18/24 08:17) Ua W/Microscopic, Cult If Ind (08/18/24 07:00) Lactic,2hr (08/18/24 09:30) Normal Saline 1000ml (Sodium Chloride 10 (08/18/24 09:40) Potassium Cl Sr Tablet (K-Dur Tablet) (08/18/24 10:00) Potassium Cl 10meq/100ml Bag (Potassium (08/18/24 10:00) Morphine 4mg/Ml Inj. (Morphine Inj.) (08/18/24 10:35) Ondansetron Inj. (Zofran 4mg/2ml Vial) (08/18/24 10:35) Vital Signs 08/18/24 08/18/24 08/18/24 08/18/24 06:32 07:32 07:32 07:40 Temp 98.0 Pulse 90 88 Resp 20 16 15 B/P (MAP) 134/81 105/74 (84) Pulse Ox 100 99 O2 Delivery Room Air* O2 Flow Rate 0 FiO2 21 08/18/24 08/18/24 08:42 09:54 Pulse 90 89 Resp 15 14 B/P (MAP) 122/81 (95) 107/68 (81) Pulse Ox 95 96 Laboratory Tests Test 08/18/24 07:00 08/18/24 07:26 08/18/24 07:45 08/18/24 07:58 Urine Specimen Description Cln catch midstream Urine Color Yellow Urine Clarity Clear Urine pH 6.5 Urine Specific [place] <=1.005 Urine Protein Negative Urine Glucose (UA) >=1000 H Urine Ketones Negative Urine Occult Blood Negative Urine Nitrite Negative Urine Bilirubin Negative Urine Urobilinogen 0.2 Urine Leukocyte Esterase Negative Urine RBC 0-2 Urine WBC 0-4 Urine Squamous Epithelial Cells Few Urine Bacteria None seen Urine Mucus None seen Urine Culture Indicated Not ind Volume Urine Centrifuged 10 ml Urine Comment Chemistry Comments CBC Comment Lactic Acid Level 3.8 H Test 08/18/24 08:40 08/18/24 10:21 White Blood Count 11.2 H Red Blood Count 4.41 L Hemoglobin 12.6 L Hematocrit 38.7 L Mean Corpuscular Volume 87.8 Mean Corpuscular Hemoglobin 28.5 Mean Corpuscular Hemoglobin Concent 32.5 L Red Cell Distribution Width 15.4 H Platelet Count 271 Mean Platelet Volume 7.8 Neutrophils (%) (Auto) 79.4 H Lymphocytes (%) (Auto) 11.2 L Monocytes (%) (Auto) 8.0 Eosinophils (%) (Auto) 0.9 Basophils (%) (Auto) 0.5 Neutrophils # (Auto) 8.9 H Lymphocytes # (Auto) 1.3 Monocytes # (Auto) 0.9 Eosinophils # (Auto) 0.1 Basophils # (Auto) 0.1 CBC Comment Erythrocyte Sedimentation Rate 53 H Sodium Level 136 Potassium Level 2.7 *L Chloride Level 95 L Carbon Dioxide Level 30.7 Anion Gap 10 Blood Urea Nitrogen 4 L Creatinine 1.11 H Estimated GFR/1.73 m2 69 BUN/Creatinine Ratio 3.6 L Glucose Level 114 H Calcium Level 9.1 Total Bilirubin 0.7 Aspartate Amino Transf (AST/SGOT) 22 Alanine Aminotransferase (ALT/SGPT) 20 Alkaline Phosphatase 79 Troponin I High Sensitivity 76 *H 72 Total Protein 7.7 Albumin 3.6 Globulin 4.1 Albumin/Globulin Ratio 0.9 L Procalcitonin 0.34 Chemistry Comments Lactic Acid Level 1.7 Troponin I High Sens Percent Delta 5 Troponin I Hi Sens Absolute Change -4 Microbiology Date/Time Source Procedure Growth Status 08/18/24 07:45 Blood Arm Left Blood Culture - Preliminary NO GROWTH AFTER 2 DAYS Resulted EKG/XRAY/CT/US/VASC/MRI Chest X-Ray : Additional Comments EXAM: XR Chest, 1 View CLINICAL INDICATION: SOB TECHNIQUE: Frontal view of the chest. COMPARISON: DI CHEST,SINGLE VIEW on DOS: 07/29/24, DI CHEST,SINGLE VIEW on DOS: 07/28/24, DI CHEST,SINGLE VIEW on DOS: 07/21/24, DI CHEST,SINGLE VIEW on DOS: 07/20/24, DI CHEST,SINGLE VIEW on DOS: 07/20/24 FINDINGS: LUNGS AND PLEURAL SPACES: Unremarkable. No consolidation. No pneumothorax. HEART: Unremarkable. No cardiomegaly. MEDIASTINUM: Unremarkable. Normal mediastinal contour. BONES/JOINTS: Unremarkable. No acute fracture. OTHER FINDINGS: . IMPRESSION: No acute cardiopulmonary process. Electronically Signed by: Navi Andrea 08/18/2024 07:31:29 AM Bone/Soft Tissue X-Ray (Ext.) : Additional Comment EXAM: XR Left Foot Complete, 3 or More Views CLINICAL INDICATION: FOOT PAIN TECHNIQUE: Frontal, lateral and oblique views of the left foot. COMPARISON: DI FOOT, COMPLETE (3VW MIN) on DOS: 07/27/24, DI FOOT, COMPLETE (3VW MIN) on DOS: 07/19/24 FINDINGS: BONES/JOINTS: See below. SOFT TISSUES: Soft tissue swelling without acute fracture. No radiopaque foreign body. OTHER FINDINGS: . IMPRESSION: 1. Soft tissue swelling without acute fracture. 2. If symptoms persist, further evaluation with CT is recommended. : Impression CT CT LOWER EXTREMITY INDICATION: left 3rd toe wound- assess for osteo, gas EXAM DATE: 08/18/2024 07:59 AM COMPARISON: MR MRI LOWER EXTREMITY LEFT on DOS: 07/27/24, CT CT LOWER EXTREMITY on DOS: 07/20/24 RADIATION DOSE: CTDIvol: 14 mGy, DLP: 422 mGy*cm PROCEDURE: Helical CT images were obtained of the left foot without intravenous contrast. Sagittal and coronal reconstructions are provided. ADDITIONAL IMAGES: None FINDINGS: BONES: No fracture.Normal anatomic alignment. JOINT SPACES: Maintained. No joint effusion. SOFT TISSUES: There is a soft tissue defect at the 3rd digit with adjacent soft tissue swelling. VESSELS: unremarkable. IMPRESSION: Soft tissue defect at the 3rd digit with adjacent soft tissue swelling with mild cortical irregularity of the 3rd proximal phalanx which could be osteomyelitis. Medical Decision Making Additional Comment This is a 53-year-old male with a left foot diabetic foot wound with surrounding cellulitis and ensuing sepsis. Patient does have an elevated WBC count as well as an elevated lactic acid level of 3.8. His potassium level is also low at 2.7. Potassium was replaced with oral and IV potassium. He was started on IV vancomycin and Zosyn. He was also given IV fluids as per sepsis protocol. CT did indicate an defect in the bone potentially which could be osteomyelitis. X- ray showed no fractures. Patient will be admitted for further treatment and care. Departure Disposition: 09 ADMITTED INPATIENT Admission Level of Care: Med/Surg with Tele Impression: Primary Impression: Diabetic foot infection Additional Impressions: Foot ulcer Cellulitis of foot Sepsis Hypokalemia Referrals: NO PRIMARY CARE PROVIDER (PCP) Signature Scribe Signature: 1 Attestation: 1 DESTINI BURCIAGA MD Aug 18, 2024 07:45
[2024-08-18 08:13] LABS: BILIRUBIN,URINE NEGATIVE (Neg); CLARITY,URINE CLEAR (Clear); COLOR,URINE YELLOW (Yellow); GLUCOSE, URINE >=1000 mg/dl (Neg); KETONES,URINE NEGATIVE (Neg); LEUKOCYTE ESTERASE ,URINE NEGATIVE (Neg); NITRITES, URINE NEGATIVE (Neg); OCCULT BLOOD,URINE NEGATIVE (Neg); PH,URINE 6.5 (4.8-8.0); PROTEIN,URINE NEGATIVE (Neg); UROBILINOGEN,URINE 0.2 E.U/dL (0.2-1.0)
[2024-08-18 08:19] LABS: UA COLLECTION TYPE CLN CATCH MIDSTREAM
[2024-08-18 08:20] LABS: BACTERIA,URINE NONE SEEN /HPF (Neg); MUCUS STRANDS NONE SEEN /LPF (Neg); RBC,URINE 0-2 /HPF (0-2); SQUAMOUS EPITHELIAL CELL,UR FEW /LPF (FEW); WBC,URINE 0-4 /HPF (0-4)
[2024-08-18] MEDS: piperacillin/tazo 3.375gm/50ml 50 ML IV ONE (08:35)
[2024-08-18] MEDS: normal saline 1000ML IV soln IVB ONE (08:35)
[2024-08-18] MEDS: vancomycin/NS 1 GM ADD-VANTAGE 250 ML IV ONE (08:36)
--- NOTE | 2024-08-18 09:12 | RADIOLOGY REPORT ---
CT CT LOWER EXTREMITY INDICATION: left 3rd toe wound- assess for osteo, gas EXAM DATE: 08/18/2024 07:59 AM COMPARISON: MR MRI LOWER EXTREMITY LEFT on DOS: 07/27/24, CT CT LOWER EXTREMITY on DOS: 07/20/24 RADIATION DOSE: CTDIvol: 14 mGy, DLP: 422 mGy*cm PROCEDURE: Helical CT images were obtained of the left foot without intravenous contrast. Sagittal a nd coronal reconstructions are provided. ADDITIONAL IMAGES: None FINDINGS: BONES: No fracture.Normal anatomic alignment. JOINT SPACES: Maintained. No joint effusion. SOFT TISSUES: There is a soft tissue defect at the 3rd digit with adjacent soft tissue swelling. VESSELS: unremarkable. IMPRESSION: Soft tissue defect at the 3rd digit with adjacent soft tissue swelling with mild cortical irregularit y of the 3rd proximal phalanx which could be osteomyelitis.
[2024-08-18 09:19] LABS: BASOPHILS # (AUTO) 0.1 X10'3 (0-0.2); BASOPHILS % (AUTO) 0.5 % (0-1); EOSINOPHILS # (AUTO) 0.1 X10'3 (0-0.9); EOSINOPHILS % (AUTO) 0.9 % (0-6); HEMATOCRIT 38.7 % (42.0-52.0); HEMOGLOBIN 12.6 g/dl (14.0-17.9); LYMPHOCYTES # (AUTO) 1.3 X10'3 (1.1-4.8); LYMPHOCYTES % (AUTO) 11.2 % (21-51); MEAN CORPUSCULAR HEMOGLOBIN 28.5 PG (27.0-31.0); MEAN CORPUSCULAR HGB CONC 32.5 g/dL (33.0-36.5); MEAN CORPUSCULAR VOLUME 87.8 FL (78-98); MEAN PLATELET VOLUME 7.8 FL (7.4-10.4); MONOCYTES # (AUTO) 0.9 X10'3 (0-0.9); NEUTROPHILS # (AUTO) 8.9 X10'3 (1.8-7.7); NEUTROPHILS % (AUTO) 79.4 % (42-75); PLATELET COUNT 271 X10'3 (140-440); RED BLOOD COUNT 4.41 X10'6 (4.70-6.10); RED CELL DISTRIBUTION WIDTH 15.4 % (11.5-14.5); WHITE BLOOD COUNT 11.2 X10'3 (4.5-11.0)
[2024-08-18 09:50] LABS: TOTAL CARBON DIOXIDE 30.7 MMOL/L (24-32)
[2024-08-18 09:52] LABS: ALANINE AMINOTRANSFERASE 20 U/L (12-78); ALBUMIN 3.6 G/DL (3.4-5.0); ALBUMIN/GLOBULIN RATIO 0.9 (1.1-1.5); ALKALINE PHOSPHATASE 79 IU/L (46-116); ANION GAP 10 (8-16); ASPARTATE AMINO TRANSFERASE 22 U/L (10-37); BILIRUBIN,TOTAL 0.7 MG/DL (0.1-1.0); BLOOD UREA NITROGEN 4 MG/DL (7-18); BUN/CREATININE RATIO 3.6 (10.0-20.0); CALCIUM 9.1 MG/DL (8.5-10.1); CHLORIDE 95 MMOL/L (99-107); CREATININE 1.11 MG/DL (0.60-1.10); GLUCOSE 114 MG/DL (70-104); POTASSIUM 2.7 MMOL/L (3.5-5.1); SODIUM 136 MMOL/L (135-145); TOTAL PROTEIN 7.7 G/DL (6.4-8.2); eCRCL 67 ML/MIN; eGFR 69 ML/MIN
[2024-08-18] MEDS: potassium CL 10mEq/100ml bag 100 ML IV SCH (10:00)
[2024-08-18] MEDS: potassium Cl 20 mEq SR tablet PO STA (10:19)
[2024-08-18] MEDS ORDERED: acetaminophen 325mg tablet PO PRN ×2 (10:35)
[2024-08-18] MEDS ORDERED: morphine 2 MG/ML inj. syringe IV PRN (10:35)
[2024-08-18] MEDS ORDERED: magnesium sulf-water 2g/50mL 50 ML IV PRN (10:35)
[2024-08-18] MEDS ORDERED: mag hydrox/Alum hydrox/simeth 30ml oral suspension PO PRN (10:35)
[2024-08-18] MEDS: normal saline 1000ml 1,000 ML IV SCH (10:35)
[2024-08-18] MEDS ORDERED: potassium Cl 40MEQ/1/2NS 520ml 520 ML IV PRN (10:35)
[2024-08-18] MEDS ORDERED: magnesium sulf-water 4G/100mL 100 ML IV PRN (10:35)
[2024-08-18] MEDS ORDERED: HYDROcodone/acetaminophen 5mg/325mg tablet PO PRN (10:35)
[2024-08-18] MEDS: normal saline 1000ml 1,000 ML IV ONE (11:04)
[2024-08-18] MEDS: morphine 4 MG/ML inj SYRINge IV ONE (11:06)
[2024-08-18] MEDS: ondansetron/PF 4mg/2ml inj IV ONE (11:07)
[2024-08-18] MEDS: ondansetron/PF 4mg/2ml inj IV PRN (11:08)
[2024-08-18] MEDS: normal saline 500ml IV soln 500 ML IV ONE (11:55)
[2024-08-18 13:31] VITALS: BP 126/72; PULSE 85; RESP 16; TEMP 99.5; O2SAT 97
[2024-08-18] MEDS ORDERED: dextrose 50%-water 50ml dispensing syringe IV PRN ×2 (14:50)
[2024-08-18] MEDS ORDERED: DEXTROSE 15 GM of carb/4 tabs (each vial/BOTTLE has 4 tablets) PO PRN ×2 (14:50)
[2024-08-18] MEDS ORDERED: glucagon, human recombinant 1mg kit SUBCUT PRN (14:50)
--- NOTE | 2024-08-18 15:02 | HISTORY AND PHYSICAL-Residence ---
History & Physical Providers to CC Resident Creating Document: MARYCHUY DENNIS, RITA ~ History of Present Illness Primary Medical Doctor: DR. JUAN ROSS Reason for Admit\\Complaint: Pain and redness with foul smelling discharge from L 3rd toe. History of Present Illness The patient is a 65-year-old male with a history of type 2 diabetes mellitus with diabetic neuropathy, CAD, [place], HTN, and heart failure who presents to the ER with increased pain (now extending to the groin), redness, foul smelling discharge, fever, and chills related to left 3rd toe for the past 2 days. 4 weeks ago, he was treated for cellulitis of the same foot due to retained nail, requiring I&D. During that admission, he experienced a respiratory arrest and seizure. He was re-admitted one week later for post-op infection; osteomyelitis was ruled out. Was discharged on p.o. antibiotics. He had not feel like his foot was improving, visited his agricultural education instructor earlier this week, he underwent wound washout and was prescribed amoxicillin and doxycycline but developed rash to amoxicillin and continued doxycycline only. His current symptoms began two days later, prompting return to the ER. He denies nausea, vomiting, chest pain, or neurologic symptoms. Patient is able to walk with support. Discussed advanced care directives and wishes to be full code. He was here in the ED on August 06 for NSTEMI and had a stent placed in LAD by Dr. Tolbert. Primary Care Physician - Dr. Enciso Soaking Tank Worker - Dr. Mitchell Sculpture Instructor - Dr. Davenport Allergies: Coded Allergies: iodine (Verified Allergy, Severe, 08/18/24) Per patient "Cardiac Arrest" when he received iodine amoxicillin (Verified Allergy, Mild, RASH, 08/18/24) PT TOLERATE ZOSYN 06/2024 Penicillins (Unverified Allergy, Unknown, 08/21/24) rash Uncoded Allergies: CONTRAST DYE (Allergy, Unknown, 12/26/23) Home Medications Home Medications Active Doxycycline Hyclate 100 Mg Tablet. 100 Mg PO BID Reported Combivent Respimat Inhal [place] (Albuterol/Ipratropium) 20 Mcg-100 Mcg/Actuation Aer.w.adap 1 Puffs INH Q6H Nitrostat SL* (Nitroglycerin) 0.4 Mg Tablet 1 Tab SL UD 1st sign of attack; may repeat every 5 mins; if pain persists after 3 in 15 min, medical attention is recommended Jardiance (Empagliflozin) 10 Mg Tablet 1 Tab PO DAILY Farxiga (Dapagliflozin Propanediol) 5 Mg Tablet 1 Tab PO DAILY Amlodipine Besylate 10 Mg Tablet 1 Tab PO DAILY Pregabalin 50 Mg Capsule 1 Cap PO TID Pantoprazole Sodium 40 Mg Tablet.dr 1 Tab PO DAILY Isosorbide Mononitrate Er (Isosorbide Mononitrate) 30 Mg Tab.er.24h 1 Tab PO QAM Baclofen 10 Mg Tablet 1 Tab PO DAILY Effexor* (Venlafaxine HCl) 37.5 Mg Tablet 2 Tab PO DAILY Furosemide 40 Mg Tablet 1 Tab PO BID Mounjaro (Tirzepatide) 7.5 Mg/0.5 Ml Pen.injctr 7.5 Mg SQ Q7D Carvedilol 25 Mg Tablet 1 Tab PO DAILY Potassium Chloride 10 Meq Tab.prt.sr 1 Tab PO TID 30 Days Cozaar* (Losartan Potassium) 25 Mg Tablet 2 Tab PO DAILY 30 Days Ferrous Sulfate* (Ferrous Sulfate) 325 Mg Tablet 1 Tab PO TID Atorvastatin Calcium 80 Mg Tablet 1 Tab PO DAILY Basaglar Kwikpen U-100 (Insulin Glargine,Hum.rec.anlog) 100 Unit/Ml (3 Ml) Insuln.pen 70 Units SUBCUT DAILY Clopidogrel (Clopidogrel Bisulfate) 75 Mg Tablet 1 Tab PO DAILY 30 Days Do not stop medication unless instructed by prescriber. Aspirin EC (Aspirin) 81 Mg Tablet.dr 1 Tab PO DAILY 30 Days Ascorbic Acid 500 Mg Tab.chew 1 Tab PO DAILY Novolog (Insulin Aspart) 100 Unit/Ml (3 Ml) Insuln.pen 4 Units SQ TIDAC Celexa* (Citalopram Hydrobromide) 20 Mg Tablet 1 Tab PO DAILY Past Medical History Past Medical History T2DM with diabetic neuropathy Coronary artery disease Multiple Myocardial Infarctions, post CABG Hypertension Heart failure with reduced ejection fraction, Respiratory arrest and seizure during prior admission Family History Family History: (CAD) Coronary arteriosclerosis FATHER, , Age: 70, Cause: CHF (congestive heart failure) (30's) Siblings Siblings Siblings (DM Type 2) Diabetes mellitus type 2 MOTHER, , Age: 63, Cause: DM complication Siblings Siblings Siblings Past Social History Smoking: Cigarettes, Less than 1 pack/day Alcohol Use: None Drug Use: None Lives with: Other Lives In: Home Occupation: employed ROS All Other Systems: Reviewed and Negative ROS Reviewed in full. All negative except for pertinent positive HPI. Exam Vitals: Vital Signs Date Time Temp Pulse Resp B/P (MAP) Pulse Ox O2 Delivery O2 Flow Rate FiO2 08/18/24 13:31 99.5 85 16 126/72 (90) 97 Room Air 08/18/24 07:32 0 21 General: General: Moderately built, awake and alert no acute distress. HEENT: Conjunctiva pink, Sclera clear, Mucus Membranes moist. Neck: Supple without masses and tenderness. Resp: Equal BS bilaterally Heart: Sinus rhythm, normal S1 and S2, no rub, murmur or gallop. Abdomen: Soft and non tender no organomegaly. Normal bowel sounds x4 quadrant normoactive. No guarding or rigidity. Extremities: Linear open wound seen between Left 3rd and 4th toes. Swelling and erythema are seen extending from tip of 3rd toe to mid dorsal surface of foot, with foul odour, nail changes, reduced capillary refill and no active discharge. Normal dorsalis pedis artery pulse. Normal ROM, no swelling, nontender. No cyanosis, clubbing or edema. FUNNEL COATER: No gross motor or sensory abnormalities. Skin: Warm and Dry. Diagnostic Data Last Recorded Lab Results: 08/18/24 0840 08/18/24 0840 Advance Care Planning Advanced Care plannin - 30 Minutes Additional Plan Patient is a 53-year-old male presenting to the ER with complaints of increased pain, swelling of L 3rd toe with fever and chills. Cellulitis of L foot Osteomyelitis of L 3rd toe WBC - 11.2, Hb - 12.6, ESR - 53, Procalcitonin - 0.34 BUN - 4, Cr - 1.11, Troponin I - [address] showed - Soft tissue defect at the 3rd digit with adjacent soft tissue swelling with mild cortical irregularity of the 3rd proximal phalanx which could be osteomyelitis. Repeat MRI showed - Diffuse subcutaneous soft-tissue edema and swelling; possibly cellulitis. Bone marrow edema is present involving the 3rd proximal and middle phalanx which is suspicious for osteomyelitis. Podiatry consultation with Dr. Escalante, awaiting response IV Vancomycin and IV Zosyn IV NS at 100 ml/hr Moderate Hypokalemia Replace per protocol History of CAD status post stenting, most recent being July 2024 CHF reduced EF 30% Type 2 diabetes on hypoglycemia protocol Hypertension Hyperlipidemia Peripheral neuropathy Awaiting med rec Started aspirin and Plavix as he had a recent stent placed, hold if there is plan for surgery. Code status: Full code DVT prophylaxis: None Analgesia/sedation: Morphine/[place] Line/tube: PIV GI prophylaxis: None Nutrition: Regular diet PT: Ordered Prognosis: Guarded Disposition: Continue medical management. Marychuy Dennis IM Resident PGY 2 Date of Service: Aug 18, 2024 Billing Provider: JUSTICE LANGFORD MD Common Visit Codes: 49229-QTYXVQP INP/OBS CARE (HIGH) Secondary Visit Codes: [id number] CARE PLAN 30 MINUTES MARYCHUY DENNIS, RES Aug 18, 2024 15:02 JUSTICE LANGFORD MD Aug 22, 2024 07:35
--- NOTE | 2024-08-18 15:08 | RADIOLOGY REPORT ---
MEDICAL CENTER EXAMINATION: MR MRI LOWER EXTREMITY LEFT TECHNIQUE: Multisequence multiplanar MRI images were obtained of the left lower extremity without in travenous contrast. HISTORY: OSTEO COMPARISON: CT CT LOWER EXTREMITY on DOS: 08/18/24, MR MRI LOWER EXTREMITY LEFT on DOS: 07/27/24, CT CT LOWER EXTREMITY on DOS: 07/20/24 Findings/ IMPRESSION: Diffuse subcutaneous soft-tissue edema and swelling; possibly cellulitis. Bone marrow edema is present involving the 3rd proximal and middle phalanx which is suspicious for os teomyelitis.
[2024-08-18] MEDS: piperacillin/tazo 3.375gm/50ml 50 ML IV SCH (16:17)
[2024-08-18] MEDS: VANCOmycin 1250MG/NS 250ml Bag 250 ML IV SCH (16:17)
[2024-08-18] MEDS: potassium Cl 20 mEq SR tablet PO PRN ×2 (16:18→23:57)
[2024-08-18] MEDS: HYDROcodone/acetaminophen 10/325mg tab PO PRN (16:19)
[2024-08-18] MEDS: heparin, porcine 5000 units/ml vial SQ SCH (16:20)
[2024-08-18 16:42] VITALS: RESP 16; O2SAT 97
[2024-08-18] MEDS: INSULIN LISPRO 100 UNIT/ML INSULN.PEN MULTI-DOSE SQ SCH ×2 (17:00→18:15)
[2024-08-18 18:00] VITALS: BP 125/68; PULSE 84; RESP 20; TEMP 98.6; O2SAT 97
[2024-08-18 20:00] VITALS: RESP 20; O2SAT 97
[2024-08-18] MEDS: K and/or MAG REPLACEMENT MC SCH (20:00)
[2024-08-18] MEDS: Melatonin 3mg tablet PO SCH (20:20)
[2024-08-18] MEDS: clopidogrel 75mg tablet PO SCH (20:20)
[2024-08-18] MEDS: insulin glargine (Lantus) pen - multi-dose SQ SCH (20:23)
[2024-08-18 22:00] VITALS: BP 107/63; PULSE 81; RESP 18; TEMP 98.4; O2SAT 99
[2024-08-19 05:51] LABS: BASOPHILS % (AUTO) 0.4 % (0-1); EOSINOPHILS # (AUTO) 0.3 X10'3 (0-0.9); EOSINOPHILS % (AUTO) 3.2 % (0-6); HEMATOCRIT 33.3 % (42.0-52.0); HEMOGLOBIN 11.2 g/dl (14.0-17.9); LYMPHOCYTES # (AUTO) 1.1 X10'3 (1.1-4.8); LYMPHOCYTES % (AUTO) 14.1 % (21-51); MEAN CORPUSCULAR HEMOGLOBIN 29.2 PG (27.0-31.0); MEAN CORPUSCULAR HGB CONC 33.5 g/dL (33.0-36.5); MEAN PLATELET VOLUME 7.8 FL (7.4-10.4); MONOCYTES # (AUTO) 0.9 X10'3 (0-0.9); MONOCYTES % (AUTO) 10.5 % (2-12); NEUTROPHILS # (AUTO) 5.8 X10'3 (1.8-7.7); NEUTROPHILS % (AUTO) 71.8 % (42-75); PLATELET COUNT 228 X10'3 (140-440); RED BLOOD COUNT 3.83 X10'6 (4.70-6.10); RED CELL DISTRIBUTION WIDTH 15.2 % (11.5-14.5); WHITE BLOOD COUNT 8.1 X10'3 (4.5-11.0)
[2024-08-19 06:00] VITALS: BP 111/62; PULSE 69; RESP 18; TEMP 97.9; O2SAT 97
[2024-08-19 06:11] LABS: PROTHROMBIN TIME 10.7 SECONDS (9.0-12.0)
[2024-08-19 06:24] LABS: ALBUMIN 2.8 G/DL (3.4-5.0); ANION GAP 8 (8-16); BLOOD UREA NITROGEN 3 MG/DL (7-18); BUN/CREATININE RATIO 3.3 (10.0-20.0); CALCIUM 8.3 MG/DL (8.5-10.1); CHLORIDE 105 MMOL/L (99-107); GLUCOSE 109 MG/DL (70-104); MAGNESIUM 1.2 MG/DL (1.5-2.4); PHOSPHORUS 3.3 MG/DL (2.3-4.5); POTASSIUM 3.5 MMOL/L (3.5-5.1); SODIUM 140 MMOL/L (135-145); TOTAL CARBON DIOXIDE 26.9 MMOL/L (24-32); eCRCL 83 ML/MIN; eGFR 88 ML/MIN
[2024-08-19 08:00] VITALS: RESP 18; O2SAT 97
[2024-08-19] MEDS: magnesium Cl slow-release 64mg tablet PO PRN (09:11)
[2024-08-19] MEDS: aspirin 81mg, enteric-coated 1 TAB TABLET.DR PO SCH (09:12)
[2024-08-19 10:00] VITALS: BP 141/84; PULSE 82; RESP 18; TEMP 97.7; O2SAT 95
--- NOTE | 2024-08-19 11:12 | CONSULTATION REPORT ---
History of Present Illness Providers to CC ~ Reason for Admit\\Admit Dx: Pain and redness with foul smelling discharge from L 3rd toe. Refering MD: DR. JUAN ROSS History of Present Illness recurrent wound to left foot with underlying osteomyelityis. I had performed a surgical I&D previous with removal of foreign body. After surgery he went into respiratory distress and was transferredto ICU. He was unable to follow-up with me after that procedure and has been seen at the wound care center and at an urgent care as well as here since then. He was on ABX since that last surgery but had an allergic reaction to one of [facility] abx and was switched to a different one. Allergies: Coded Allergies: iodine (Verified Allergy, Severe, 08/18/24) Per patient "Cardiac Arrest" when he received iodine amoxicillin (Verified Allergy, Mild, RASH, 08/18/24) PT TOLERATE ZOSYN 06/2024 Uncoded Allergies: CONTRAST DYE (Allergy, Unknown, 12/26/23) Home Medications Home Medications Active Doxycycline Hyclate 100 Mg Tablet.dr 100 Mg PO BID Reported Combivent Respimat Inhal [place] (Albuterol/Ipratropium) 20 Mcg-100 Mcg/Actuation Aer.w.adap 1 Puffs INH Q6H Nitrostat SL* (Nitroglycerin) 0.4 Mg Tablet 1 Tab SL UD 1st sign of attack; may repeat every 5 mins; if pain persists after 3 in 15 min, medical attention is recommended Jardiance (Empagliflozin) 10 Mg Tablet 1 Tab PO DAILY Farxiga (Dapagliflozin Propanediol) 5 Mg Tablet 1 Tab PO DAILY Amlodipine Besylate 10 Mg Tablet 1 Tab PO DAILY Pregabalin 50 Mg Capsule 1 Cap PO TID Pantoprazole Sodium 40 Mg Tablet.dr 1 Tab PO DAILY Isosorbide Mononitrate Er (Isosorbide Mononitrate) 30 Mg Tab.er.24h 1 Tab PO QAM Baclofen 10 Mg Tablet 1 Tab PO DAILY Effexor* (Venlafaxine HCl) 37.5 Mg Tablet 2 Tab PO DAILY Furosemide 40 Mg Tablet 1 Tab PO BID Mounjaro (Tirzepatide) 7.5 Mg/0.5 Ml Pen.injctr 7.5 Mg SQ Q7D Carvedilol 25 Mg Tablet 1 Tab PO DAILY Potassium Chloride 10 Meq Tab.prt.sr 1 Tab PO TID 30 Days Cozaar* (Losartan Potassium) 25 Mg Tablet 2 Tab PO DAILY 30 Days Ferrous Sulfate* (Ferrous Sulfate) 325 Mg Tablet 1 Tab PO TID Atorvastatin Calcium 80 Mg Tablet 1 Tab PO DAILY Basaglar Yoikpen U-100 (Insulin Glargine,Hum.rec.anlog) 100 Unit/Ml (3 Ml) Insuln.pen 70 Units SUBCUT DAILY Clopidogrel (Clopidogrel Bisulfate) 75 Mg Tablet 1 Tab PO DAILY 30 Days Do not stop medication unless instructed by prescriber. Aspirin EC (Aspirin) 81 Mg Tablet.dr 1 Tab PO DAILY 30 Days Ascorbic Acid 500 Mg Tab.chew 1 Tab PO DAILY Novolog (Insulin Aspart) 100 Unit/Ml (3 Ml) Insuln.pen 4 Units SQ TIDAC Celexa* (Citalopram Hydrobromide) 20 Mg Tablet 1 Tab PO DAILY Past Family History Family History: (CAD) Coronary arteriosclerosis FATHER, , Age: 70, Cause: CHF (congestive heart failure) (30's) Siblings Siblings Siblings (DM Type 2) Diabetes mellitus type 2 MOTHER, , Age: 63, Cause: DM complication Siblings Siblings Siblings Physical Exam Last Vital Signs Recorded: Temperature: 97.9, Source: Oral, Heart Rate: 69, Respiratory Rate: 18, BP: 111/62, Pulse Oximetry: 97, Weight: 73.050 Physical Exam GEN: pt is nAD and AAOx3 DERM: discoloration to the 3rd digit with wound sub third digit extending into the 2nd interspace. there is sero-purulent drainage with erythema surroubndibng the wound. edema noted to foot MSK: +POP NEURO: sensation decreased to lenny LLE VASC: Pedal pulses palpable Results Diagram Lab Result Diagram: 08/19/24 0509 08/19/24 1030 Assessment/Plan Additional Plan pt seen and evaluated plan for surgery tomorrow - will coordinate with OR scheduling continue with ABX per medical team arterial US ordered to asses vascularity to the left foot pt to follow-up wiht me in my office up KRYSTEN MATSON DPM Aug 19, 2024 11:12
[2024-08-19] MEDS ORDERED: nitroGLYCERIN 0.4mg SUBLingual tab SL PRN (15:35)
--- NOTE | 2024-08-19 15:42 | PROGRESS NOTE- Residence ---
Progress Note - Resident Providers to CC Resident Creating Document: ELIUD MENDES, RITA ~ Antibiotic Timeout Antibiotic Ordered?: Yes Subjective The patient has been evaluated at bedside. The patient reports currently left foot pain with radiation to the groin for over 10 in intensity. We will controlled with pain medication. Objective Vital Signs Date Time Temp Pulse Resp B/P (MAP) Pulse Ox O2 Delivery O2 Flow Rate FiO2 08/19/24 10:00 97.7 82 18 141/84 (103) 95 Room Air 08/18/24 20:00 0.0 21 Physical exam: General: Well alert, well oriented, not confused, not agitated, not in acute distress, well cooperated during the physical. HEENT: Conjunctive are pink, sclerae clear, no icterus, pupil is equal in both sides, reactive to light, no ear discharge, no pharyngeal erythema or an edema. Neck: Supple, no JVD, no lymphadenopathy and thyromegaly. Chest: Equal air entry on both lungs, no additional sounds no rhonchi no wheezing at the moment. Cardiovascular: S1-S2 regular sinus rhythm and, regular rate, no gallops, no rubs, no murmurs Abdomen: No visible peristalsis, Bowel sounds present on auscultation, soft, nontender, no guarding, no rigidity Extremities: Presence of wound ulcer of 1 cm at the level of the 3rd interdigital space, covered with clean dressing. Diminished pulse in the left lower extremity. Central Nervous System: No focal neurological deficits, no motor or sensory weakness in all 4 extremities, could move all 4 extremities, 2+ deep tendon reflexes, negative Babinski. Skin: Warm and dry. Result Diagram: 08/19/24 0509 08/19/24 1030 Coagulation Studies Laboratory Tests Test 08/19/24 05:09 Prothrombin Time 10.7 SECONDS (9.0-12.0) INR International Normalized Ratio 1.0 INR Coagulation Comments Assessment Assessment Patient is a 53-year-old male presenting to the ER with complaints of increased pain, swelling of L 3rd toe with fever and chills. Plan Plan Cellulitis of the left foot: Osteomyelitis of L 3rd toe WBC - 11.2, Hb - 12.6, ESR - 53, Procalcitonin - 0.34 BUN - 4, Cr - 1.11, Troponin I - [address] showed - Soft tissue defect at the 3rd digit with adjacent soft tissue swelling with mild cortical irregularity of the 3rd proximal phalanx which could be osteomyelitis. Repeat MRI showed - Diffuse subcutaneous soft-tissue edema and swelling; possibly cellulitis. Bone marrow edema is present involving the 3rd proximal and middle phalanx which is suspicious for osteomyelitis. Podiatry consultation with Dr. Escalante, awaiting response IV Vancomycin and IV Zosyn IV NS at 100 ml/hr. 08/19/2024: Continue IV vancomycin and IV Zosyn. [place] [id number] Fisher rolling mill operator evaluated the patient. Plan for surgery tomorrow. Pending vascular ultrasound. NPO for surgery. Moderate Hypokalemia-resolved: Current potassium levels 3.8. Continue replacement as per protocol. History of CAD status post stenting, most recent being July 2024: Chronic systolic congestive heart failure with ejection fraction of 30%: 08/19/2024: Med reconciliation done: Continue aspirin 81 mg daily. Continue clopidogrel 75 mg daily. Continue atorvastatin 80 mg daily. Carvedilol 25 mg daily. Empagliflozin 10 mg daily. Type 2 diabetes on hypoglycemia protocol Hypertension: Current blood pressure: Continue amlodipine 10 mg daily. Losartan 50 mg daily. COPD not in acute exacerbation: Albuterol PRN. Peripheral neuropathy Pregabalin 50 mg daily. Venlafaxine daily. Code status: Full code DVT prophylaxis: None Analgesia/sedation: Morphine/[place] Line/tube: PIV GI prophylaxis: Protonix Nutrition: NPO for surgery. PT: Ordered Prognosis: Guarded Disposition: Continue medical management. We will undergo surgery for osteomyelitis tomorrow by Dr. Fisher. Date of Service: Aug 19, 2024 Billing Provider: JUSTICE LANGFORD MD Common Visit Codes: [id number] INP/OBS CARE(HIGH) CARMINA FLORESELIUD, RES Aug 19, 2024 15:42 JUSTICE LANGFORD MD Aug 22, 2024 07:35
--- NOTE | 2024-08-19 15:48 | VASCULAR REPORT ---
EXAM: VASC VL ANTOINE ANKLE/BRACHIAL INDEX CLINICAL HISTORY: Left lower extremity pain Peripheral vascular disease COMPARISON: None TECHNIQUE: Bilateral systolic ankle and brachial pressures are obtained, with ankle pulse volume waveforms and i ndices. FINDINGS: Pressures: Right Left Brachial 132 mmHg 140 mmHg PT 142 mmHg 134 mmHg DP 130 mmHg 108 mmHg ANTOINE: Right Left 1.01 .96 Pulse volume waveforms: Multiphasic IMPRESSION: Right ANTOINE is 1.01, no disease at rest. Left ANTOINE is 0.96, mild disease at rest. 1.0-1.4: normal 0.91-0.99 borderline 0.9: abnormal (i.e. PAD) 0.4-0.9: [id number] PAD <0.4: suggestive of severe PAD
--- NOTE | 2024-08-19 15:50 | VASCULAR REPORT ---
Left Lower Extremity Arterial Duplex Clinical History: Pain Comparison: VASC VL RENAL on DOS: 11/08/23 Technique: Duplex Doppler evaluation including color Doppler and spectral/pulsed waveform analysis of the lower extremity arteries was performed. Findings: LEFT: Peak systolic velocities are as follows: INTERACTIVE MEDIA DESIGNER 95 cm/s Deep femoral 358 cm/s SFA proximal 85 cm/s SFA mid-portion 105 cm/s SFA distal 126 cm/s Popliteal 135 cm/s Posterior tibial 83 cm/s Anterior tibial 46 cm/s Peroneal 74 cm/s Dorsalis pedis 46 cm/s The waveforms are multiphasic. IMPRESSION: Kawk-po-nomwphno calcified plaque seen throughout the left lower extremity. Moderate stenosis of the origin of the left deep femoral artery. Mild stenosis of the left distal popliteal artery. REFERENCE VALUES, [facility]) vascular Imaging Lab Criteria: Peak systolic velocity rang es (in cm/sec) are as follows: <150 cm/s - <20 % stenosis 150-200 cm/s - 20-49% stenosis 200-300 cm/s - 50-75% stenosis >300 cm/s -> 75% stenosis
[2024-08-19] MEDS: citalopram 20mg tablet PO SCH (16:35)
[2024-08-19] MEDS: baclofen 10mg tablet PO SCH (16:35)
[2024-08-19] MEDS: ferrous sulfate 325mg tablet PO SCH (21:39)
[2024-08-19] MEDS: pregabalin 25mg capsule PO SCH (21:39)
[2024-08-19 22:00] VITALS: BP 152/84; PULSE 76; RESP 16; TEMP 98.7; O2SAT 95
[2024-08-20] VITALS (20 sets, daily range): BP systolic 123–149; BP diastolic 73–86; PULSE 65–81; RESP 13–20; TEMP 97.6–98.8; O2SAT 89–99
[2024-08-20] MEDS: VANCOMYCIN LEVEL IV ONE (03:47)
[2024-08-20 04:07] LABS: ANION GAP 7 (8-16); BLOOD UREA NITROGEN 5 MG/DL (7-18); BUN/CREATININE RATIO 5.6 (10.0-20.0); CALCIUM 9.1 MG/DL (8.5-10.1); CHLORIDE 101 MMOL/L (99-107); GLUCOSE 127 MG/DL (70-104); MAGNESIUM 1.6 MG/DL (1.5-2.4); PHOSPHORUS 4.4 MG/DL (2.3-4.5); POTASSIUM 3.3 MMOL/L (3.5-5.1); SODIUM 136 MMOL/L (135-145); TOTAL CARBON DIOXIDE 27.6 MMOL/L (24-32); VANCOMYCIN,TROUGH 12.2 ug/mL (10.0-20.0); eCRCL 83 ML/MIN; eGFR 88 ML/MIN
[2024-08-20 06:21] LABS: BASOPHILS % (AUTO) 0.4 % (0-1); EOSINOPHILS # (AUTO) 0.3 X10'3 (0-0.9); EOSINOPHILS % (AUTO) 4.2 % (0-6); HEMOGLOBIN 12.1 g/dl (14.0-17.9); LYMPHOCYTES # (AUTO) 1.2 X10'3 (1.1-4.8); LYMPHOCYTES % (AUTO) 14.3 % (21-51); MEAN CORPUSCULAR HEMOGLOBIN 28.6 PG (27.0-31.0); MEAN CORPUSCULAR HGB CONC 32.6 g/dL (33.0-36.5); MEAN CORPUSCULAR VOLUME 87.7 FL (78-98); MEAN PLATELET VOLUME 7.6 FL (7.4-10.4); MONOCYTES # (AUTO) 0.6 X10'3 (0-0.9); MONOCYTES % (AUTO) 7.5 % (2-12); NEUTROPHILS % (AUTO) 73.6 % (42-75); PLATELET COUNT 264 X10'3 (140-440); RED BLOOD COUNT 4.22 X10'6 (4.70-6.10); RED CELL DISTRIBUTION WIDTH 15.1 % (11.5-14.5); WHITE BLOOD COUNT 8.1 X10'3 (4.5-11.0)
--- NOTE | 2024-08-20 06:38 | ELECTROCARDIOGRAPH REPORT ---
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 Jayden Spann Measurements Intervals [place] Rate: 78 P: 5 PA: 221 QRS: 68 QRSD: 98 T: 102 QT: 383 QTc: 437 Interpretive Statements Sinus rhythm Prolonged PA interval Borderline low voltage, extremity leads Nonspecific T abnormalities, lateral leads Minimal ST elevation, anterior leads Electronically Signed On 08-20-2024 6:48:[address] Jayden Spann Please click the below link to view image of tracing.
[2024-08-20] MEDS: pantoprazole 40 MG vial IV SCH (08:48)
[2024-08-20] MEDS: carVEDilol 12.5mg tablet PO SCH (09:20)
[2024-08-20] MEDS: ascorbic acid 500mg tablet PO SCH (09:21)
[2024-08-20] MEDS: losartan 50mg tablet PO SCH (09:21)
[2024-08-20] MEDS: isosorbide mononitrate 30mg tab.SR.24H PO SCH (09:22)
[2024-08-20] MEDS: atorvastatin 20mg tablet PO SCH (09:22)
[2024-08-20] MEDS: amLODIPine 5mg tablet PO SCH (09:23)
[2024-08-20] MEDS: potassium Cl 20 mEq SR tablet PO STA (09:26)
[2024-08-20] MEDS: venlafaxine 37.5mg tablet PO SCH (09:38)
[2024-08-20] MEDS: EMPAGLIFLOZIN 10 MG TABLET PO SCH (09:38)
--- NOTE | 2024-08-20 13:24 | PROGRESS NOTE- Residence ---
Progress Note - Resident Providers to CC Resident Creating Document: JULI DENNIS RES ~ Antibiotic Timeout Antibiotic Ordered?: Yes Subjective The patient has been evaluated at bedside. Patient reports no new symptoms. No change in pain intensity. Objective Vital Signs Date Time Temp Pulse Resp B/P (MAP) Pulse Ox O2 Delivery O2 Flow Rate FiO2 08/20/24 10:00 98.5 72 14 142/81 (101) 96 Room Air 08/19/24 20:00 0.0 08/18/24 20:00 21 Result Diagram: 08/20/24 0544 08/20/24 0330 General: Well alert, well oriented, no acute distress HEENT: Conjunctive are pink, sclerae clear, no icterus, pupil is equal in both sides, reactive to light, no ear discharge, no pharyngeal erythema or an edema. Neck: Supple, no JVD, no lymphadenopathy and thyromegaly. Chest: Equal air entry on both lungs, no additional sounds no rhonchi no wheezing at the moment. Cardiovascular: S1-S2 regular sinus rhythm and, regular rate, no gallops, no rubs, no murmurs Abdomen: No visible peristalsis, Bowel sounds present on auscultation, soft, nontender, no guarding, no rigidity Extremities: Presence of wound ulcer of 1 cm at the level of the 3rd interdigital space, covered with clean dressing. Reduced capillary refill. Normal pulse in the left lower extremity. Central Nervous System: No focal neurological deficits, no motor or sensory weakness in all 4 extremities, could move all 4 extremities, 2+ deep tendon reflexes, negative Babinski. Skin: Warm and dry. Coagulation Studies Laboratory Tests Test 08/19/24 05:09 Prothrombin Time 10.7 SECONDS (9.0-12.0) INR International Normalized Ratio 1.0 INR Coagulation Comments Assessment Assessment 53-year-old male presenting to the ER with complaints of increased pain, swelling of L 3rd toe with fever and chills. Plan Plan Cellulitis of the left foot: Osteomyelitis of L 3rd toe WBC - 11.2, Hb - 12.6, ESR - 53, Procalcitonin - 0.34 BUN - 4, Cr - 1.11, Troponin I - [address] showed - Soft tissue defect at the 3rd digit with adjacent soft tissue swelling with mild cortical irregularity of the 3rd proximal phalanx which could be osteomyelitis. Repeat MRI showed - Diffuse subcutaneous soft-tissue edema and swelling; possibly cellulitis. Bone marrow edema is present involving the 3rd proximal and middle phalanx which is suspicious for osteomyelitis. Podiatry consultation with Dr. Escalante, awaiting response IV Vancomycin and IV Zosyn IV NS at 100 ml/hr. 08/19/2024: Continue IV vancomycin and IV Zosyn. [place] [id number] Fisher travel registered nurse pacu evaluated the patient. Plan for surgery tomorrow. Pending vascular ultrasound. NPO for surgery. 08/20/2024: Continue IV vancomycin and IV Zosyn. Vascular Ultrasound showed - 1. Right ANTOINE is 1.01, no disease at rest. 2. Left ANTOINE is 0.96, mild disease at rest. Arterial Ultrasound showed - 1. Osjp-hu-njtbcprf calcified plaque seen throughout the left lower extremity. 2. Moderate stenosis of the origin of the left deep femoral artery. 3. Mild stenosis of the left distal popliteal artery. Patient is awaiting surgery today - By Dr Escalante ID consulted; to decide course of antibiotics based on surgical findings Moderate Hypokalemia-resolved: Current potassium levels 3.8. Continue replacement as per protocol. 08/20/2024: Current potassium level: 3.3. Continue replacement as per protocol. History of CAD status post stenting, most recent being July 2024 Chronic systolic congestive heart failure with ejection fraction of 30% 08/19/2024: Med reconciliation done: Continue aspirin 81 mg daily. Continue clopidogrel 75 mg daily. Continue atorvastatin 80 mg daily. Carvedilol 25 mg daily. Empagliflozin 10 mg daily. Type 2 diabetes on hypoglycemia protocol Hypertension Current blood pressure Continue amlodipine 10 mg daily. Losartan 50 mg daily. COPD not in acute exacerbation: Albuterol PRN. Peripheral neuropathy Pregabalin 50 mg daily Venlafaxine daily Code status: Full code DVT prophylaxis: None Analgesia/sedation: Morphine/[place] Line/tube: PIV GI prophylaxis: Protonix Nutrition: NPO until surgery, can have clear liq and advance as tolerated to heart healthy post surgery Prognosis: Guarded Disposition: Continue medical management. Surgery for osteomyelitis today by Dr. Escalante. Date of Service: Aug 20, 2024 Billing Provider: JUSTICE LANGFORD MD Common Visit Codes: [id number] INP/OBS CARE(HIGH) JULI DENNIS RES Aug 20, 2024 13:24 JUSTICE LANGFORD MD Aug 22, 2024 07:37
[2024-08-20] MEDS ORDERED: BUPIVAcaine 2.5mg/ml inj 50ml vial (contains preservative) ONE (15:23)
[2024-08-20] MEDS ORDERED: labetalol 20mg/4ml (5mg/ml) syringe IV PRN (17:00)
[2024-08-20] MEDS ORDERED: morphine 4 MG/ML inj SYRINge IV PRN (17:00)
[2024-08-20] MEDS ORDERED: ondansetron/PF 4mg/2ml inj IV PRN (17:00)
[2024-08-20] MEDS ORDERED: morphine 2 MG/ML inj. syringe IV PRN (17:00)
[2024-08-20] MEDS ORDERED: HYDROmorphone/PF 0.2 MG/ML SYRINGE IV PRN ×2 (17:00)
[2024-08-20] MEDS ORDERED: hydrALAZINE 20mg/ml inj. IV PRN (17:00)
[2024-08-20] MEDS: VANCOMYCIN/WATER FOR INJ (PEG) 1.5GM/300 ML IVPB IV SCH (17:02)
[2024-08-20] MEDS ORDERED: midazolam 1 mg/ML 2ml injection ONE (17:09)
[2024-08-20] MEDS ORDERED: propofol inj 20 ML IV ONE (17:09)
[2024-08-20] MEDS ORDERED: fentaNYL/PF 50MCG/1 ML 2ML syringe ONE (17:09)
[2024-08-20] MEDS ORDERED: sevoflurane 250ml liquid IH ONE (17:36)
[2024-08-20] MEDS: BUPIVAcaine/PF 2.5 mg/ml (0.25%) 30ml vial IJ ONE (17:43)
[2024-08-20] MEDS: ringers solution, lacted 1,000 ML IV SCH (18:35)
--- NOTE | 2024-08-20 18:39 | OPERATIVE REPORT ---
Operative Report Providers to ~ Date of Procedure: Aug 20, 2024 Pre-Operative Diagnosis: CELLULITIS POSSIBE OSTEO Post-Operative Diagnosis SAME as PRE-Op Procedure Performed Left 3rd toe amputation Surgeon: Cee Jiang DPM Senior Mortgage Underwriter None Anesthesiologist: Neil Meza Type of Anesthesia: General Findings: Significant necrotic tissue to the medial left 3rd toe with soft bone to the proximal phalanx. Dusky changes to the Left 3rd toe. After amputation, there was no necrotic tissue at the level of the MPJ. No purulence. 3rd met head was pearly white in coloration and firm. Complications none Prosthetics\Implants used: none Estimated Blood Loss: 20cc Specimen Removed: 1) Left third toe for pathology 2) Left third toe bone for A&A and gram stain 3) Left third ray soft tissue clean sample for A&A and gram stain Description of Procedure: Under mild sedation, the patient was brought into the operating room and placed on the operating room table in the supine position. General anesthesia was induced by the Anesthesia provider using a LMA. The left lower extremity was the scrubbed, prepped and draped in the usual sterile fashion. A timeout was performed confirming the correct patient, procedure and laterality. The left lower extremity was lowered to the operating table. 20cc of 0.25% marcaine plain was injected in a local block fashion. Attention was directed to the left 3rd toe where a modified racquet incision was made about the Left 3rd MTPJ. The incision was made with a #15 blade down to the level of bone. The 3rd toe was disarticulated at the level of the MTPJ. A rongeur was used to take a sample of the 3rd toe proximal phalanx for culture. The 3rd toe was passed to the back table to be sent for pathologic exam. The wound was irrigated with 3L normal saline using cysto tubing. Gloves were rica nged at this time and only unused tools were used going forward to prevent spread of infection. A clean culture was taken from the 3rd MTPJ. Any remaining non-viable tissue was debrided. The skin edges were remodeled with a fresh #15 blade. The wound was then irrigated with 1L irricept. Any small bleeders were cauterized with electrocautery. The deep tissue was closed with 3-0 vycril in an [id number] fashion to close the space. The skin was closed with 3-0 nylon with care taken to ensure there was not excess tension on the skin. 10cc additional 0.25% marcaine plain was injected in a local block fashion. The incision was dressed with betadine soaked adaptic, betadine soaked gauze, dry gauze, webril and Derrick wrap. The patient tolerated the procedure and anesthesia well and was transferred from the operating room to PACU with vital signs stable and vascular status intact to the left foot. After a brief period of post-operative monitoring, the patient will be transferred back to the floor for continued inpatient management. RECOMMENDATIONS: -Patient to be strict Heel WB in a post-operative shoe to the left foot -Continue IV abx while inpatient, would recommend d/c on 2 weeks culture directed oral abx -Dressing to stay clean, dry and intact to the left foot until follow-up -Elevate LLE above level of heart at all times at rest, foot should be in dependent position for ADLs only -We will call patient to schedule outpatient post-operative follow-up in 1 week -With any questions or concerns, please call me or our office: Office: Personal: Counts repoted as correct: Yes CEE JIANG DPM Aug 20, 2024 18:39
[2024-08-20] MEDS: acetaminophen 1,000mg/100ml IV 100 ML IV PRN (19:01)
--- NOTE | 2024-08-20 20:25 | RADIOLOGY REPORT ---
Indication: Post op Left 3rd toe amputation Technique: 2 views left foot Comparison: None FINDINGS/IMPRESSION: Amputation of the level of the 3rd MTP joint. Diffuse left foot soft tissue edema Inferior calcaneal spurring. Achilles enthesopathy.
[2024-08-21 03:31] VITALS: BP 120/74; PULSE 75; RESP 16; TEMP 98; O2SAT 93
[2024-08-21 05:40] LABS: BASOPHILS % (AUTO) 0.4 % (0-1); EOSINOPHILS # (AUTO) 0.4 X10'3 (0-0.9); HEMATOCRIT 36.7 % (42.0-52.0); LYMPHOCYTES # (AUTO) 1.1 X10'3 (1.1-4.8); LYMPHOCYTES % (AUTO) 14.1 % (21-51); MEAN CORPUSCULAR HGB CONC 32.7 g/dL (33.0-36.5); MEAN CORPUSCULAR VOLUME 88.7 FL (78-98); MEAN PLATELET VOLUME 7.3 FL (7.4-10.4); MONOCYTES # (AUTO) 0.7 X10'3 (0-0.9); MONOCYTES % (AUTO) 8.9 % (2-12); NEUTROPHILS # (AUTO) 5.6 X10'3 (1.8-7.7); NEUTROPHILS % (AUTO) 71.6 % (42-75); PLATELET COUNT 284 X10'3 (140-440); RED BLOOD COUNT 4.13 X10'6 (4.70-6.10); RED CELL DISTRIBUTION WIDTH 15.6 % (11.5-14.5); WHITE BLOOD COUNT 7.8 X10'3 (4.5-11.0)
[2024-08-21 05:58] LABS: ALBUMIN 2.9 G/DL (3.4-5.0); ANION GAP 12 (8-16); BLOOD UREA NITROGEN 5 MG/DL (7-18); BUN/CREATININE RATIO 5.8 (10.0-20.0); CALCIUM 8.8 MG/DL (8.5-10.1); CHLORIDE 103 MMOL/L (99-107); CREATININE 0.86 MG/DL (0.60-1.10); GLUCOSE 98 MG/DL (70-104); MAGNESIUM 1.9 MG/DL (1.5-2.4); PHOSPHORUS 3.8 MG/DL (2.3-4.5); POTASSIUM 3.4 MMOL/L (3.5-5.1); SODIUM 140 MMOL/L (135-145); TOTAL CARBON DIOXIDE 25.1 MMOL/L (24-32); eCRCL 86 ML/MIN; eGFR > 90 ML/MIN
[2024-08-21 06:00] VITALS: BP 142/79; PULSE 72; RESP 15; TEMP 98.1; O2SAT 95
[2024-08-21 08:00] VITALS: RESP 15; O2SAT 95
[2024-08-21 10:00] VITALS: BP 113/67; PULSE 73; RESP 16; TEMP 98.2; O2SAT 96
[2024-08-21] MEDS: metroNIDAZOLE-Flagyl 500mg/NS 100 ML IV SCH (10:23)
[2024-08-21] MEDS ORDERED: potassium Cl 20 mEq SR tablet PO PRN (13:55)
[2024-08-21] MEDS ORDERED: potassium Cl 40MEQ/1/2NS 520ml 520 ML IV PRN (13:55)
[2024-08-21] MEDS: CefTRIAXone/D5W-Rocephin 1gm 50 ML IV SCH (14:07)
[2024-08-21] MEDS: potassium Cl 20 mEq SR tablet PO PRN (15:34)
--- NOTE | 2024-08-21 16:52 | PROGRESS NOTE- Residence ---
Progress Note - Resident Providers to CC Resident Creating Document: MARYCHUY DENNIS RES ~ Antibiotic Timeout Antibiotic Ordered?: Yes Subjective Patient seen and examined at bedside. S/p left great toe amputation. States pain is well controlled. No new concerns or complaints. Objective Vital Signs Date Time Temp Pulse Resp B/P (MAP) Pulse Ox O2 Delivery O2 Flow Rate FiO2 08/21/24 13:41 15 08/21/24 10:00 98.2 73 113/67 (82) 96 Room Air 08/20/24 20:00 0.0 21 Result Diagram: 08/21/24 0503 08/21/24 0503 General: Well alert, well oriented, no acute distress HEENT: Conjunctive are pink, sclerae clear, no icterus, pupil is equal in both sides, reactive to light, no ear discharge, no pharyngeal erythema or an edema. Neck: Supple, no JVD, no lymphadenopathy and thyromegaly. Chest: Equal air entry on both lungs, no additional sounds no rhonchi no wheezing at the moment. Cardiovascular: S1-S2 regular sinus rhythm and, regular rate, no gallops, no rubs, no murmurs Abdomen: No visible peristalsis, Bowel sounds present on auscultation, soft, nontender, no guarding, no rigidity Extremities: S/p left 3rd toe amputation, leg wrapped in clean surgical dressing. No swelling or erythema. Central Nervous System: No focal neurological deficits, no motor or sensory weakness in all 4 extremities, could move all 4 extremities, 2+ deep tendon reflexes, negative Babinski. Skin: Warm and dry. Coagulation Studies Laboratory Tests Test 08/19/24 05:09 Prothrombin Time 10.7 SECONDS (9.0-12.0) INR International Normalized Ratio 1.0 INR Coagulation Comments Assessment Assessment 53-year-old male presenting to the ER with complaints of increased pain, swelling of L 3rd toe with fever and chills. Plan Plan Cellulitis of the left foot: Osteomyelitis of L 3rd toe, s/p left 3rd toe amputation by Dr. 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 Repeat MRI showed - Diffuse subcutaneous soft-tissue edema and swelling; possibly cellulitis. Bone marrow edema is present involving the 3rd proximal and middle phalanx which is suspicious for osteomyelitis. Podiatry consultation with Dr. Escalante, awaiting response IV Vancomycin and IV Zosyn IV NS at 100 ml/hr. 08/19/2024: Continue IV vancomycin and IV Zosyn. Culture[place] [id number] Fisher taper printed circuit layout evaluated the patient. Plan for surgery tomorrow. Pending vascular ultrasound. NPO for surgery. 08/20/2024: Continue IV vancomycin and IV Zosyn. Vascular Ultrasound showed - 1. Right ANTOINE is 1.01, no disease at rest. 2. Left ANTOINE is 0.96, mild disease at rest. Arterial Ultrasound showed - 1. Mmhe-yh-gmzbtjjt calcified plaque seen throughout the left lower extremity. 2. Moderate stenosis of the origin of the left deep femoral artery. 3. Mild stenosis of the left distal popliteal artery. Patient is awaiting surgery today - By Dr Escalante ID consulted; to decide course of antibiotics based on surgical findings 08/21/2024 Postop cultures sent Antibiotics changed to ceftriaxone and Flagyl Consulted Dr. Donohue, appreciate recommendations PT worked with him and cleared him, home independent Recommendations per Dr. Fu -Patient to be strict Heel WB in a post-operative shoe to the left foot -Continue IV abx while inpatient, would recommend d/c on 2 weeks culture directed oral abx -Dressing to stay clean, dry and intact to the left foot until follow-up -Elevate LLE above level of heart at all times at rest, foot should be in dependent position for ADLs only -We will call patient to schedule outpatient post-operative follow-up in 1 week -With any questions or concerns, please call me or our office: Office: Personal: Moderate Hypokalemia-resolved: Continue replacement as per protocol. History of CAD status post stenting, most recent being July 2024 Chronic systolic congestive heart failure with ejection fraction of 30% 08/19/2024: Med reconciliation done: Continue aspirin 81 mg daily. Continue clopidogrel 75 mg daily. Continue atorvastatin 80 mg daily. Carvedilol 25 mg daily. Empagliflozin 10 mg daily. Type 2 diabetes on hypoglycemia protocol Hypertension Current blood pressure Continue amlodipine 10 mg daily. Losartan 50 mg daily. COPD not in acute exacerbation: Albuterol PRN. Peripheral neuropathy Pregabalin 50 mg daily Venlafaxine daily Code status: Full code DVT prophylaxis: None Analgesia/sedation: Morphine/[place] Line/tube: PIV GI prophylaxis: Protonix Nutrition: Heart healthy Prognosis: Guarded Disposition: Continue medical management. PT has cleared him for discharge. Awaiting antibiotic recommendations per Dr. Donohue. Cultures NGTD. Marychuy Dennis IM Resident PGY 2 Date of Service: Aug 21, 2024 Billing Provider: JUSTICE LANGFORD MD Common Visit Codes: [id number] INP/OBS CARE(HIGH) MARYCHUY DENNIS, RES Aug 21, 2024 16:52 JUSTICE LANGFORD MD Aug 22, 2024 07:38
[2024-08-21 18:00] VITALS: BP 142/80; PULSE 73; RESP 14; TEMP 98.7; O2SAT 96
[2024-08-21] MEDS ORDERED: K and/or MAG REPLACEMENT MC SCH (20:00)
[2024-08-21 22:00] VITALS: BP 113/69; PULSE 83; RESP 17; TEMP 98.2; O2SAT 98
[2024-08-22] MEDS ORDERED: VANCOMYCIN LEVEL IV ONE (03:30)
[2024-08-22 05:30] LABS: BASOPHILS % (AUTO) 0.5 % (0-1); EOSINOPHILS # (AUTO) 0.4 X10'3 (0-0.9); EOSINOPHILS % (AUTO) 6.8 % (0-6); HEMATOCRIT 35.8 % (42.0-52.0); HEMOGLOBIN 11.9 g/dl (14.0-17.9); LYMPHOCYTES # (AUTO) 1.2 X10'3 (1.1-4.8); LYMPHOCYTES % (AUTO) 18.2 % (21-51); MEAN CORPUSCULAR HEMOGLOBIN 28.8 PG (27.0-31.0); MEAN CORPUSCULAR HGB CONC 33.2 g/dL (33.0-36.5); MEAN CORPUSCULAR VOLUME 86.8 FL (78-98); MONOCYTES # (AUTO) 0.8 X10'3 (0-0.9); MONOCYTES % (AUTO) 11.8 % (2-12); NEUTROPHILS # (AUTO) 4.1 X10'3 (1.8-7.7); NEUTROPHILS % (AUTO) 62.7 % (42-75); PLATELET COUNT 297 X10'3 (140-440); RED BLOOD COUNT 4.12 X10'6 (4.70-6.10); RED CELL DISTRIBUTION WIDTH 15.3 % (11.5-14.5); WHITE BLOOD COUNT 6.5 X10'3 (4.5-11.0)
[2024-08-22 06:00] VITALS: BP 152/80; PULSE 73; RESP 14; TEMP 97.3; O2SAT 98
[2024-08-22 06:12] LABS: ALBUMIN 2.9 G/DL (3.4-5.0); ANION GAP 11 (8-16); BLOOD UREA NITROGEN 6 MG/DL (7-18); BUN/CREATININE RATIO 9.2 (10.0-20.0); CALCIUM 9.3 MG/DL (8.5-10.1); CHLORIDE 103 MMOL/L (99-107); CREATININE 0.65 MG/DL (0.60-1.10); GLUCOSE 107 MG/DL (70-104); MAGNESIUM 2.1 MG/DL (1.5-2.4); PHOSPHORUS 3.9 MG/DL (2.3-4.5); POTASSIUM 3.8 MMOL/L (3.5-5.1); SODIUM 137 MMOL/L (135-145); TOTAL CARBON DIOXIDE 23.3 MMOL/L (24-32); eCRCL 114 ML/MIN; eGFR > 90 ML/MIN
[2024-08-22 08:14] VITALS: BP 145/84; PULSE 71
[2024-08-22 10:00] VITALS: BP 130/75; PULSE 67; RESP 16; TEMP 97.2; O2SAT 97
[2024-08-22] MEDS ORDERED: HYDR-3973 PO (10:33)
[2024-08-22] MEDS ORDERED: METR-159 PO (10:37)
[2024-08-22] MEDS ORDERED: CIPR250T4 PO (10:37)
--- NOTE | 2024-08-22 13:45 | DISCHARGE SUMMARY-Residence ---
Discharge Summary Providers to CC Resident Creating Document: JULI DENNIS RES ~ Discharge Summary Admission Diagnosis: CELLULITIS POSSIBE OSTEO Hospital Course DATE OF ADMISSION: 08/18/24 DATE OF DISCHARGE: 08/22/24 Discharge Diagnosis\Comment: Cellulitis of the left foot: Osteomyelitis of L 3rd toe, s/p left 3rd toe amputation by Dr. 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 Escalante Orthopedics - Dr. Donohue Complications: None Condition on DC: Stable for transfer New Medications: Ciprofloxacin HCl (Ciprofloxacin HCl) 250 Mg Tablet 750 MG PO Q12H for 14 Days, #84 TAB Doxycycline Hyclate (Doxycycline Hyclate) 100 Mg Tablet.dr 100 MG PO BID for 14 Days, #28 TAB Hydrocodone Bit/Acetaminophen (Hydrocodone-Apap 10-325 Tablet) 10mg/325mg Tablet 1 TAB PO QID PRN PRN for pain for 5 Days, #20 TAB Metronidazole* (Flagyl*) 500 Mg Tablet 1 TAB PO BID for 14 Days, #28 TAB Continued Medications: Amlodipine Besylate (Amlodipine Besylate) 10 Mg Tablet 1 TAB PO DAILY Ascorbic Acid (Ascorbic Acid) 500 Mg Tab.chew 1 TAB PO DAILY Aspirin (Aspirin EC) 81 Mg Tablet.dr 1 TAB PO DAILY for 30 Days, #30 TAB Atorvastatin Calcium (Atorvastatin Calcium) 80 Mg Tablet 1 TAB PO DAILY Baclofen (Baclofen) 10 Mg Tablet 1 TAB PO DAILY Carvedilol (Carvedilol) 25 Mg Tablet 1 TAB PO DAILY Citalopram Hydrobromide* (Celexa*) 20 Mg Tablet 1 TAB PO DAILY Clopidogrel Bisulfate (Clopidogrel) 75 Mg Tablet 1 TAB PO DAILY for 30 Days, #30 TAB 0 Refills Do not stop medication unless instructed by prescriber. Dapagliflozin Propanediol (Farxiga) 5 Mg Tablet 1 TAB PO DAILY Empagliflozin (Jardiance) 10 Mg Tablet 1 TAB PO DAILY, TAB 0 Refills Ferrous Sulfate* (Ferrous Sulfate*) 325 Mg Tablet 1 TAB PO TID, TAB Furosemide (Furosemide) 40 Mg Tablet 1 TAB PO BID Insulin Aspart (Novolog) 100 Unit/Ml (3 Ml) Insuln.pen 4 UNITS SQ TIDAC Insulin Glargine,Hum.rec.anlog (Basaglar Kwikpen U-100) 100 Unit/Ml (3 Ml) Insuln.pen 70 UNITS SUBCUT DAILY Ipratropium/Albuterol Sulfate (Combivent Respimat Inhal [place]) 20 Mcg-100 Mcg/Actuation Aer.w.adap 1 PUFFS INH Q6H, GM Isosorbide Mononitrate (Isosorbide Mononitrate Er) 30 Mg Tab.er.24h 1 TAB PO QAM Losartan Potassium* (Cozaar*) 25 Mg Tablet 2 TAB PO DAILY for 30 Days, #30 TAB Nitroglycerin SL* (Nitrostat SL*) 0.4 Mg Tablet 1 TAB SL UD for chest pain, TAB 1st sign of attack; may repeat every 5 mins; if pain persists after 3 in 15 min, medical attention is recommended Pantoprazole Sodium (Pantoprazole Sodium) 40 Mg Tablet.dr 1 TAB PO DAILY Potassium Chloride (Potassium Chloride) 10 Meq Tab.prt.sr 1 TAB PO TID for 30 Days, #30 TAB 0 Refills Pregabalin (Pregabalin) 50 Mg Capsule 1 CAP PO TID Tirzepatide (Mounjaro) 7.5 Mg/0.5 Ml Pen.injctr 7.5 MG SQ Q7D Venlafaxine Hcl* (Effexor*) 37.5 Mg Tablet 2 TAB PO DAILY Discharge Summary: As per HPI: The patient is a 65-year-old male with a history of type 2 diabetes mellitus with diabetic neuropathy, CAD, MN, HTN, and heart failure who presents to the ER with increased pain (now extending to the groin), redness, foul smelling discharge, fever, and chills related to left 3rd toe for the past 2 days. 4 weeks ago, he was treated for cellulitis of the same foot due to retained nail, requiring I&D. During that admission, he experienced a respiratory arrest and seizure. He was re-admitted one week later for post-op infection; osteomyelitis was ruled out. Was discharged on p.o. antibiotics. He had not feel like his foot was improving, visited his bellman earlier this week, he underwent wound washout and was prescribed amoxicillin and doxycycline but developed rash to amoxicillin and continued doxycycline only. His current symptoms began two days later, prompting return to the ER. He denies nausea, vomiting, chest pain, or neurologic symptoms. Patient is able to walk with support. Discussed advanced care directives and wishes to be full code. He was here in the ED on August 06 for NSTEMI and had a stent placed in LAD by Dr. Tolbert. Hospital Course: Further evaluation of the LLE with CT showed signs of cellulitis of foot and osteomyelitis of 3rd proximal phalanx, later confirmed with MRI. Initial labs were significant for WBC - 11. 2 with neutrophilia, along with moderate hypokalemia (2.7). Initial broad spectrum coverage with IV Vancomycin and IV Zosyn and patient was started on hypokalemia protocol. Sales Applications Engineer (Dr. Escalante) recommended vascular US which showed, mild disease at rest in Left Lower limb (ANTOINE - 0.96), along with moderate stenosis in origin of left deep femoral artery and left distal popliteal artery. After hypokalemia correction, patient underwent left 3rd toe amputation by Dr. Fu, with uneventful post-op course. Antibiotics were switched to IV Ceftriaxone and IV Metronidazole. Per recommendations by Infectious Disease, antibiotics were switched to Oral Ciprofloxacin, doxy and Metronidazole at discharge. Recomme ndations as per orthopedician (Dr. Fu) at discharge include strict heel weight being in a post-operative shoe, and limb elevation at rest, with follow- up in 1 week. Patient was cleared by PT for self-care. His hospital course is uncomplicated, and he is hemodynamically stable on the day of discharge and his physical exam is as follows: General: Well alert, well oriented, no acute distress HEENT: Conjunctive are pink, sclerae clear, no icterus, pupil is equal in both sides, reactive to light, no ear discharge, no pharyngeal erythema or an edema. Neck: Supple, no JVD, no lymphadenopathy and thyromegaly. Chest: Equal air entry on both lungs, no additional sounds no rhonchi no wheezing at the moment. Cardiovascular: S1-S2 regular sinus rhythm and, regular rate, no gallops, no rubs, no murmurs Abdomen: No visible peristalsis, Bowel sounds present on auscultation, soft, nontender, no guarding, no rigidity Extremities: S/p left 3rd toe amputation, leg wrapped in clean surgical dressing. No swelling or erythema. Central Nervous System: No focal neurological deficits, no motor or sensory weakness in all 4 extremities, could move all 4 extremities, 2+ deep tendon reflexes, negative Babinski. Skin: Warm and dry. Discharge medications can be found above. Patient is being discharged with the following advice: Follow-up with Dr. Fu's office within a week. Keep dressing clean, dry and in tact until follow-up. Always wear the post-operative shoe and keep limb elevated. Do not put any weight on the front part of Left foot. Continue taking the above mentioned meds. If you notice any extreme limb pain, or change in colour of the toes or foot, call 911 or go to the nearest ER immediately. Vital Signs Date Time Temp Pulse Resp B/P (MAP) Pulse Ox O2 Delivery O2 Flow Rate FiO2 08/22/24 10:00 97.2 67 16 130/75 (93) 97 Room Air 08/22/24 08:00 0.0 21 Laboratory Tests Test 08/20/24 16:25 08/20/24 16:53 08/20/24 21:22 08/21/24 05:03 Glucometer 95 mg/dl 101 mg/dl 114 mg/dl White Blood Count 7.8 X10'3 Red Blood Count 4.13 X10'6 Hemoglobin 12.0 g/dl Hematocrit 36.7 % Mean Corpuscular Volume 88.7 FL Mean Corpuscular Hemoglobin 29.0 PG Mean Corpuscular Hemoglobin Concent 32.7 g/dL Red Cell Distribution Width 15.6 % Platelet Count 284 X10'3 Mean Platelet Volume 7.3 FL Neutrophils (%) (Auto) 71.6 % Lymphocytes (%) (Auto) 14.1 % Monocytes (%) (Auto) 8.9 % Eosinophils (%) (Auto) 5.0 % Basophils (%) (Auto) 0.4 % Neutrophils # (Auto) 5.6 X10'3 Lymphocytes # (Auto) 1.1 X10'3 Monocytes # (Auto) 0.7 X10'3 Eosinophils # (Auto) 0.4 X10'3 Basophils # (Auto) 0.0 X10'3 CBC Comment Sodium Level 140 MMOL/L Potassium Level 3.4 MMOL/L Chloride Level 103 MMOL/L Carbon Dioxide Level 25.1 MMOL/L Anion Gap 12 Blood Urea Nitrogen 5 MG/DL Creatinine 0.86 MG/DL Estimated GFR/1.73 m2 > 90 ML/MIN BUN/Creatinine Ratio 5.8 Glucose Level 98 MG/DL Calcium Level 8.8 MG/DL Phosphorus Level 3.8 MG/DL Magnesium Level 1.9 MG/DL Albumin 2.9 G/DL Chemistry Comments Test 08/21/24 08:00 08/21/24 12:57 08/21/24 17:33 08/21/24 20:11 Glucometer 99 mg/dl 110 mg/dl 111 mg/dl 106 mg/dl Test 08/22/24 04:58 08/22/24 07:19 White Blood Count 6.5 X10'3 Red Blood Count 4.12 X10'6 Hemoglobin 11.9 g/dl Hematocrit 35.8 % Mean Corpuscular Volume 86.8 FL Mean Corpuscular Hemoglobin 28.8 PG Mean Corpuscular Hemoglobin Concent 33.2 g/dL Red Cell Distribution Width 15.3 % Platelet Count 297 X10'3 Mean Platelet Volume 7.0 FL Neutrophils (%) (Auto) 62.7 % Lymphocytes (%) (Auto) 18.2 % Monocytes (%) (Auto) 11.8 % Eosinophils (%) (Auto) 6.8 % Basophils (%) (Auto) 0.5 % Neutrophils # (Auto) 4.1 X10'3 Lymphocytes # (Auto) 1.2 X10'3 Monocytes # (Auto) 0.8 X10'3 Eosinophils # (Auto) 0.4 X10'3 Basophils # (Auto) 0.0 X10'3 CBC Comment Sodium Level 137 MMOL/L Potassium Level 3.8 MMOL/L Chloride Level 103 MMOL/L Carbon Dioxide Level 23.3 MMOL/L Anion Gap 11 Blood Urea Nitrogen 6 MG/DL Creatinine 0.65 MG/DL Estimated GFR/1.73 m2 > 90 ML/MIN BUN/Creatinine Ratio 9.2 Glucose Level 107 MG/DL Calcium Level 9.3 MG/DL Phosphorus Level 3.9 MG/DL Magnesium Level 2.1 MG/DL Albumin 2.9 G/DL Chemistry Comments Glucometer 134 mg/dl *Problems/Diagnosis: (1) Osteomyelitis of third toe of left foot Status: Resolved Total Time Spent on D/C: > 30 Minutes Date of Service: Aug 22, 2024 Billing Provider: JUSTICE LANGFORD MD Common Visit Codes: 77579-ELA/OBS DISCH DAY >30min JULI DENNIS, RES Aug 22, 2024 13:35 JUSTICE LANGFORD MD Aug 22, 2024 21:12
--- NOTE | 2024-08-22 20:34 | PROGRESS NOTE ---
DATE: 08/22/2024 DICTATING PHYSICIAN: Gabe Donohue MD SUBJECTIVE: The patient was re-evaluated regarding a left diabetic foot infection. He was actually seen by me earlier this month. He came back to the hospital about 4 days ago with worsening infection at his left third toe. He did go to the operating room with Dr. Fu of Podiatry. The third toe was amputated and the proximal tissue at the MTP joint looked good. He is stable in the postoperative setting and he is hoping to go home today. PHYSICAL EXAMINATION: VITAL SIGNS: He is afebrile with stable vital signs. GENERAL: He is a pleasant middle-aged male who looks good. LUNGS: Clear to auscultation bilaterally. HEART: Regular rate and rhythm. ABDOMEN: Soft, nontender and nondistended. EXTREMITIES: I did take down his surgical dressing. At the left foot, the third toe has been amputated with sutures in place. The surgical site looks good. LABORATORY DATA: His white blood cell count is 6500. His creatinine is 0.65. He does have a culture demonstrating a gram-negative diana yet to be identified. Previous culture had shown MRSA. ASSESSMENT AND PLAN: * Left diabetic foot infection that developed after a foreign body was removed. He failed oral therapy with Augmentin and doxycycline. He may have developed a rash to Augmentin. There is now evidence of gram-negative infection and the third toe has been amputated. Proximal tissue appeared to be okay. * Insulin-dependent diabetes that is under good control. He does have peripheral neuropathy. PLAN: He should be able to go home today with a combination of ciprofloxacin, doxycycline and metronidazole. I would dose ciprofloxacin at 750 mg twice daily and I will follow up identification of the gram-negative diana along with susceptibilities. Doxycycline will continue to provide coverage for MRSA and metronidazole will provide coverage for anaerobes. I would recommend a 2-week course of treatment using all three antibiotics and I am hoping that he will heal up well. He is going to follow up with Podiatry early next week and he should be offloading his left foot. Gabe Donohue MD TID: [id number] RECEIPT: [id number] SO/CARSON
== END 2024-08-22 11:51 | disposition home health service (06) | DRG 710 ==
LOC: ER 06:22 → ED HOLD 10:47 → ORTHO 4S 12:35
PROVIDERS: ADMIT Internal Medicine; ATTEND Internal Medicine
PROC: 0Y6U0Z0 Detachment at Left 3rd Toe, Complete, Open Approach (ICD-10-PCS; principal; 2024-08-20 17:16)
DX: A41.9 Sepsis, unspecified organism (principal); E87.20 Acidosis, unspecified; E11.42 Type 2 diabetes mellitus with diabetic polyneuropathy; E11.621 Type 2 diabetes mellitus with foot ulcer; E87.6 Hypokalemia; E11.69 Type 2 diabetes mellitus with other specified complication; M86.8X7 Other osteomyelitis, ankle and foot; I11.0 Hypertensive heart disease with heart failure; J45.909 Unspecified asthma, uncomplicated; I50.22 Chronic systolic (congestive) heart failure; E78.00 Pure hypercholesterolemia, unspecified; L03.116 Cellulitis of left lower limb; F41.9 Anxiety disorder, unspecified; I25.10 Atherosclerotic heart disease of native coronary artery without angina pectoris; I25.2 Old myocardial infarction; Z88.1 Allergy status to other antibiotic agents; Z91.041 Radiographic dye allergy status; Z79.82 Long term (current) use of aspirin; Z79.01 Long term (current) use of anticoagulants; Z79.899 Other long term (current) drug therapy
CPT/HCPCS: 36415; 71045; 73620; 73630; 73700; 73718; 80048; 80053; 80202; 81001; 82948; 83605; 83735; 84100; 84132; 84145; 84484; 85025; 85610; 85651; 87040; 87070; 87075; 87077; 87081; 87186; 93005; 93922; 93926; 96365; 97110; 97116; 97161; 97164; 97530; 99285; A4618; A6223; A6253; A6260; A6446; A6449; A7000; G0378; J0131; J0696; J1644; J1815; J2250; J2270; J2405; J2470; J2543; J2704; J3010; J3370; J3372; J3490; J7030; J7040; J7120

== ENCOUNTER 2024-09-06 01:52 | Emergency (ER) | payer MEDICAID ==
[~2024-09-06] VITALS: Ht 165.1 cm; Wt 73.1 kg
[~2024-09-06 01:52] MED LIST changes: +CIPR250T4 PO; -HYDR-3972 PO; +METR-159 PO
[2024-09-06 01:53] VITALS: TEMP 98.3
--- NOTE | 2024-09-06 02:03 | ELECTROCARDIOGRAPH REPORT ---
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
--- NOTE | 2024-09-06 02:28 | Physician Documentation ---
History of Present Illness ~ Chief Complaint: Shortness of Breath Stated Complaint: HIGH BP Time Seen by MD: 02:24 Primary Medical Doctor: DR. JUAN ROSS HPI Patient presents to the emergency room for evaluation as he was at home feeling very jittery and felt as if he could not get enough air therefore came in to be evaluated. History of anxiety. Patient was admitted here two months ago and had a positive stress test. He was discharged and followed up with his boiler fireman, Dr. Mitchell, who performed a catheterization with resulting stent placement. He missed his follow up appointment because he was readmitted to our hospital for toe amputation for osteomyelitis. He has diabetes. When asked if he is having any chest discomfort this evening he says a little bit. Medication Reconciliation Allergies: Coded Allergies: iodine (Verified Allergy, Severe, 09/06/24) Per patient "Cardiac Arrest" when he received iodine amoxicillin (Verified Allergy, Mild, RASH, 09/06/24) PT TOLERATE ZOSYN 06/2024 Penicillins (Unverified Allergy, Unknown, 09/06/24) rash Uncoded Allergies: CONTRAST DYE (Allergy, Unknown, 12/26/23) Scheduled Amlodipine Besylate (Amlodipine Besylate), 1 TAB PO DAILY, (Reported) Ascorbic Acid (Ascorbic Acid), 1 TAB PO DAILY, (Reported) Aspirin (Aspirin EC), 1 TAB PO DAILY, (Reported) Atorvastatin Calcium (Atorvastatin Calcium), 1 TAB PO DAILY, (Reported) Baclofen (Baclofen), 1 TAB PO DAILY, (Reported) Carvedilol (Carvedilol), 1 TAB PO DAILY, (Reported) Citalopram Hydrobromide* (Celexa*), 1 TAB PO DAILY, (Reported) Clopidogrel Bisulfate (Clopidogrel), 1 TAB PO DAILY, (Reported) Dapagliflozin Propanediol (Farxiga), 1 TAB PO DAILY, (Reported) Empagliflozin (Jardiance), 1 TAB PO DAILY, (Reported) Ferrous Sulfate* (Ferrous Sulfate*), 1 TAB PO TID, (Reported) Furosemide (Furosemide), 1 TAB PO BID, (Reported) Insulin Aspart (Novolog), 4 UNITS SQ TIDAC, (Reported) Insulin Glargine,Hum.rec.anlog (Basaglar Kwikpen U-100), 70 UNITS SUBCUT DAILY, (Reported) Ipratropium/Albuterol Sulfate (Combivent Respimat Inhal [place]), 1 PUFFS INH Q6H, (Reported) Isosorbide Mononitrate (Isosorbide Mononitrate Er), 1 TAB PO QAM, (Reported) Losartan Potassium* (Cozaar*), 2 TAB PO DAILY, (Reported) Nitroglycerin SL* (Nitrostat SL*), 1 TAB SL UD, (Reported) Pantoprazole Sodium (Pantoprazole Sodium), 1 TAB PO DAILY, (Reported) Potassium Chloride (Potassium Chloride), 1 TAB PO TID, (Reported) Pregabalin (Pregabalin), 1 CAP PO TID, (Reported) Tirzepatide (Mounjaro), 7.5 MG SQ Q7D, (Reported) Venlafaxine Hcl* (Effexor*), 2 TAB PO DAILY, (Reported) Discontinued Medications Ciprofloxacin HCl (Ciprofloxacin HCl), 750 MG PO Q12H Discontinued Reason: Auto Discontinued Doxycycline Hyclate (Doxycycline Hyclate), 100 MG PO BID Discontinued Reason: Auto Discontinued Metronidazole* (Flagyl*), 1 TAB PO BID Discontinued Reason: Auto Discontinued Past Medical History Past Medical History: *CARDIOVASCULAR*, Angina, Coronary Artery Disease, Con gestive Heart Failure, High Cholesterol, Hypertension, Myocardial Infarction, Asthma, Pneumonia, Diabetes, Anxiety Past Surgical History: angioplasty Patient History: (CAD) Coronary arteriosclerosis FATHER, , Age: 70, Cause: CHF (congestive heart failure) (30's) Siblings Siblings Siblings (DM Type 2) Diabetes mellitus type 2 MOTHER, , Age: 63, Cause: DM complication Siblings Siblings Siblings Other Past Family History: NONCONTRIBUTORY Alcohol Use: None Drug Use: none Lives with: Other Lives In: Home Occupation: employed Review of Systems ROS All review of systems negative except as per HPI Physical Exam Vital Signs: Temperature: 98.3, Source: Temporal, Heart Rate: 92, Respiratory Rate: 18, BP: 184/93, Pulse Oximetry: 100, Weight: 73.100 Oxygen Flow Rate: 0 Physical Exam General: Patient is awake, alert, oriented x4, anxious Head: Normocephalic and atraumatic. Eyes: Conjunctival normal. EOMI. PERRL. ENT: Mucous membranes moist. Neck: Supple, trachea is midline. Chest: Clear to auscultation bilaterally without rales, rhonchi, or wheezes. There is no accessory muscle use or retractions. Cardiac: RRR without murmurs, gallops, or rubs. Abd: Soft, nondistended, nontender, with normoactive bowel sounds. No guarding, rebound, or rigidity. Extremities: Normal strength. Normal range of motion. No deformities or edema. No calf tenderness to palpation Progress Results/Orders Results/Orders Orders - RANGEL BLACKWOOD MD Chest,Single View (09/06/24 02:50) Monitor (09/06/24 02:28) Saline Lock (09/06/24 02:28) Oxygen (09/06/24 02:28) Hs Troponin I W Calculations (09/06/24 04:28) Hs Troponin I W Calculations (09/06/24 05:28) Completed Orders - RANGEL BLACKWOOD MD Electrocardiogram (09/06/24 01:58) Chest,Single View (09/06/24 02:50) Cbc/Diff (09/06/24 02:28) BMP (09/06/24 02:28) PBNP (09/06/24 02:28) Hs Troponin I W Calculations (09/06/24 02:28) Vital Signs 09/06/24 09/06/24 09/06/24 01:53 02:32 03:12 Temp 98.3 Pulse 92 83 Resp 18 16 18 B/P (MAP) 184/93 119/79 (92) Pulse Ox 100 98 O2 Flow Rate 0 0 Laboratory Tests Test 09/06/24 02:40 White Blood Count 8.3 Red Blood Count 4.83 Hemoglobin 14.1 Hematocrit 41.8 L Mean Corpuscular Volume 86.6 Mean Corpuscular Hemoglobin 29.1 Mean Corpuscular Hemoglobin Concent 33.7 Red Cell Distribution Width 15.7 H Platelet Count 326 Mean Platelet Volume 7.3 L Neutrophils (%) (Auto) 63.2 Lymphocytes (%) (Auto) 23.2 Monocytes (%) (Auto) 7.2 Eosinophils (%) (Auto) 5.7 Basophils (%) (Auto) 0.7 Neutrophils # (Auto) 5.2 Lymphocytes # (Auto) 1.9 Monocytes # (Auto) 0.6 Eosinophils # (Auto) 0.5 Basophils # (Auto) 0.1 CBC Comment Sodium Level 137 Potassium Level 3.6 Chloride Level 97 L Carbon Dioxide Level 29.3 Anion Gap 11 Blood Urea Nitrogen 3 L Creatinine 0.89 Estimated GFR/1.73 m2 89 BUN/Creatinine Ratio 3.4 L Glucose Level 261 H Calcium Level 9.2 Troponin I High Sensitivity 43 Pro-B-Type Natriuretic Peptide 279 H Albumin 3.9 Chemistry Comments EKG/XRAY/CT/US/VASC/MRI EKG : Additional Comment EKG interpreted by myself shows time of 0201, rate 91, sinus rhythm, normal axis, no ST changes, first-degree block Chest X-Ray : Additional Comments Exam: CHEST,SINGLE VIEW CHEST RADIOGRAPH Indication: CP Technique: Single frontal view of the chest was obtained COMPARISON: DI CHEST,SINGLE VIEW on DOS: 08/18/24, DI CHEST,SINGLE VIEW on DOS: 07/29/24, DI CHEST,SINGLE VIEW on DOS: 07/28/24, DI CHEST,SINGLE VIEW on DOS: 07/21/24, DI CHEST,SINGLE VIEW on DOS: 07/20/24 FINDINGS: Lines and Tubes: None Lungs: Clear Pleura: No effusion. No pneumothorax. Cardiomediastinal contours: Unremarkable Bones: Unremarkable IMPRESSION: 1. No acute disease. Medical Decision Making Findings Patient presented to the emergency room as per HPI. Differentials include but are not limited to ACS, anxiety, pneumonia, dehydration therefore emergent labs ordered which were reassuring. EKGs reassuring. Noted elevation of sugar has been no evidence of DKA. Patient is feeling better with blood pressures improved. I strongly suspect anxiety. Departure Disposition: HOME / SELF CARE / HOMELESS Impression: Primary Impression: General medical exam Condition: Stable Discharge Instructions: General Discharge Instructions Referrals: NO PRIMARY CARE PROVIDER (PCP) Signature Scribe Signature: No scribe Attestation: The note accurately reflects work and decisions made by me.Rangel Blackwood MD 09/06/24 03:35 RANGEL BLACKWOOD MD Sep 06, 2024 02:28
[2024-09-06 02:58] LABS: MEAN PLATELET VOLUME 7.3 FL (7.4-10.4); RED CELL DISTRIBUTION WIDTH 15.7 % (11.5-14.5)
[2024-09-06 03:22] LABS: CREATININE 0.89 MG/DL (0.60-1.10); PRO BRAIN NATRIURETIC PEPTIDE 279 PG/ML (0-125); TOTAL CARBON DIOXIDE 29.3 MMOL/L (24-32); eCRCL 84 ML/MIN; eGFR 89 ML/MIN
--- NOTE | 2024-09-06 03:27 | RADIOLOGY REPORT ---
CHEST RADIOGRAPH Indication: CP Technique: Single frontal view of the chest was obtained COMPARISON: DI CHEST,SINGLE VIEW on DOS: 08/18/24, DI CHEST,SINGLE VIEW on DOS: 07/29/24, DI CHEST,SINGL E VIEW on DOS: 07/28/24, DI CHEST,SINGLE VIEW on DOS: 07/21/24, DI CHEST,SINGLE VIEW on DOS: 07/20/24 FINDINGS: Lines and Tubes: None Lungs: Clear Pleura: No effusion. No pneumothorax. Cardiomediastinal contours: Unremarkable Bones: Unremarkable IMPRESSION: 1. No acute disease.
[2024-09-06] MEDS ORDERED: LOSA-415 PO (03:38)
[2024-09-06 03:53] VITALS: BP 122/77; PULSE 83; RESP 16; O2SAT 98
== END 2024-09-06 03:55 | disposition home or self-care (01) ==
LOC: ER 01:53
DX: R06.02 Shortness of breath (principal); I11.0 Hypertensive heart disease with heart failure; I50.9 Heart failure, unspecified; E11.9 Type 2 diabetes mellitus without complications; I25.2 Old myocardial infarction; F41.9 Anxiety disorder, unspecified; I25.10 Atherosclerotic heart disease of native coronary artery without angina pectoris; E78.00 Pure hypercholesterolemia, unspecified; J45.909 Unspecified asthma, uncomplicated; Z88.0 Allergy status to penicillin; Z91.041 Radiographic dye allergy status; Z88.1 Allergy status to other antibiotic agents; Z79.899 Other long term (current) drug therapy; Z79.4 Long term (current) use of insulin
CPT/HCPCS: 36415; 71045; 80048; 83880; 84484; 85025; 93005; 99285

== ENCOUNTER 2024-09-29 09:39 | Emergency (ER) | payer MEDICAID ==
[~2024-09-29] VITALS: Ht 165.1 cm; Wt 72.7 kg
[~2024-09-29 09:39] MED LIST changes: -CIPR250T4 PO; -DOXY-243 PO; -METR-159 PO
--- NOTE | 2024-09-29 09:55 | ELECTROCARDIOGRAPH REPORT ---
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 Dillon Chaidez Measurements Intervals [place] Rate: 76 P: -32 [place]: 202 QRS: 21 QRSD: 84 T: 90 QT: 397 QTc: 447 Interpretive Statements Sinus rhythm Multiple ventricular premature complexes Borderline prolonged [place] interval Borderline low voltage, extremity leads Electronically Signed On 09-29-2024 18:25:[address] Dillon Chaidez Please click the below link to view image of tracing.
[2024-09-29 10:07] LABS: MEAN PLATELET VOLUME 7.3 FL (7.4-10.4); RED CELL DISTRIBUTION WIDTH 16.5 % (11.5-14.5)
--- NOTE | 2024-09-29 10:20 | Physician Documentation ---
History of Present Illness ~ Chief Complaint: Chest Pain Stated Complaint: SOB FEET SWELLING CHEST TIGHTNESS Time Seen by MD: 10:05 Primary Medical Doctor: DR. ZUNIGA; CODY LAU This is a 53-year-old gentleman with multiple prior visits and stays in the hospital, history of CHF, history of OK, who "take 25 or closer to 30 medications a day, comes in for evaluation of substernal chest pressure/pain and shortness of breath. This is similar to prior OK. it is exertional, not positional. Reports bilateral lower extremity swelling. Compliant with his medications. Denies use of tobacco, alcohol or illicit substances Medication Reconciliation Allergies: Coded Allergies: iodine (Verified Allergy, Severe, 09/29/24) Per patient "Cardiac Arrest" when he received iodine amoxicillin (Verified Allergy, Mild, RASH, 09/29/24) PT TOLERATE ZOSYN 06/2024 Penicillins (Unverified Allergy, Unknown, 09/29/24) rash Uncoded Allergies: CONTRAST DYE (Allergy, Unknown, 12/26/23) Scheduled Amlodipine Besylate (Amlodipine Besylate), 1 TAB PO DAILY, (Reported) Ascorbic Acid (Ascorbic Acid), 1 TAB PO DAILY, (Reported) Aspirin (Aspirin EC), 1 TAB PO DAILY, (Reported) Atorvastatin Calcium (Atorvastatin Calcium), 1 TAB PO DAILY, (Reported) Baclofen (Baclofen), 1 TAB PO DAILY, (Reported) Carvedilol (Carvedilol), 1 TAB PO DAILY, (Reported) Citalopram Hydrobromide* (Celexa*), 1 TAB PO DAILY, (Reported) Clopidogrel Bisulfate (Clopidogrel), 1 TAB PO DAILY, (Reported) Dapagliflozin Propanediol (Farxiga), 1 TAB PO DAILY, (Reported) Empagliflozin (Jardiance), 1 TAB PO DAILY, (Reported) Ferrous Sulfate* (Ferrous Sulfate*), 1 TAB PO TID, (Reported) Furosemide (Furosemide), 1 TAB PO BID, (Reported) Insulin Aspart (Novolog), 4 UNITS SQ TIDAC, (Reported) Insulin Glargine,Hum.rec.anlog (Basaglar Kwikpen U-100), 70 UNITS SUBCUT DAILY, (Reported) Ipratropium/Albuterol Sulfate (Combivent Respimat Inhal [place]), 1 PUFFS INH Q6H, (Reported) Isosorbide Mononitrate (Isosorbide Mononitrate Er), 1 TAB PO QAM, (Reported) Losartan Potassium* (Cozaar*), 2 TAB PO DAILY, (Reported) Losartan Potassium* (Cozaar*), 1 TAB PO DAILY Nitroglycerin SL* (Nitrostat SL*), 1 TAB SL UD, (Reported) Pantoprazole Sodium (Pantoprazole Sodium), 1 TAB PO DAILY, (Reported) Potassium Chloride (Potassium Chloride), 1 TAB PO TID, (Reported) Pregabalin (Pregabalin), 1 CAP PO TID, (Reported) Tirzepatide (Mounjaro), 7.5 MG SQ Q7D, (Reported) Venlafaxine Hcl* (Effexor*), 2 TAB PO DAILY, (Reported) Past Medical History Past Medical History: *CARDIOVASCULAR*, Angina, Coronary Artery Disease, C ongestive Heart Failure, High Cholesterol, Hypertension, Myocardial Infarction, Asthma, Pneumonia, Diabetes, Anxiety Past Surgical History: angioplasty Patient History: (CAD) Coronary arteriosclerosis FATHER, , Age: 70, Cause: CHF (congestive heart failure) (30's) Siblings Siblings Siblings (DM Type 2) Diabetes mellitus type 2 MOTHER, , Age: 63, Cause: DM complication Siblings Siblings Siblings Other Past Family History: NONCONTRIBUTORY Alcohol Use: None Drug Use: none Lives with: Other Lives In: Home Occupation: employed Review of Systems ROS 10 point review of systems was performed and unless noted above in HPI is negative for acute process/complaint. Physical Exam Vital Signs: Temperature: 98.5, Source: Temporal, Heart Rate: 75, Respiratory Rate: 16, BP: 136/89, Pulse Oximetry: 100, Weight: 72.730 Oxygen Flow Rate: 0 Physical Exam GENERAL: Awake, alert, oriented, GCS 15, no apparent distress, non-toxic appearing, answers questions, follows commands appropriately. Examined in bed 3. HEENT: Atraumatic, normocephalic, pupils equal, extraocular muscles intact, sclerae anicteric, mucus membranes moist, oropharynx is clear, no stridor. NECK: supple, full active range of motion, trachea midline, no thyromegaly, no lymphadenopathy, no JVD. CARDIOVASCULAR: regular rate/rhythm, no murmurs/gallops/rubs, Pulses are 2+ in all extremities and symmetric. Capillary refill less than 2 seconds. PULMONARY: Nonlabored, good air movement ,no respiratory distress, speaking in full sentences, clear to auscultation bilaterally, no wheezing, no ronchi, no rales, no accessory muscle use. GASTROINTESTINAL: Soft, non-tender, non-distended, normal active bowel sounds, no organomegaly, no pulsatile masses, no CVA tenderness. NEUROLOGIC: Lucid with normal mental status. Normal facial symmetry. Moves all extremities symmetrically and with purpose. No truncal ataxia. Speech is fluid without evidence of dysarthria or aphasia, no focal deficits appreciated. MUSCULOSKELETAL: There is full range of motion of all extremities. There is no joint pain or joint swelling or joint erythema. There is no muscle pain or tenderness or swelling. EXTREMITIES: warm, well-perfused, no cyanosis, no clubbing, no edema, no acute deformities. Skin: warm, dry, no rashes or lesions, no jaundice, no petechiae orpurpura. No ecchymosis. PSYCHIATRIC: Normal affect, normal insight, normal concentration. Focused exam: [] Progress Results/Orders Results/Orders Orders - GINA ADAMS DO Chest,Single View (09/29/24 09:53) Monitor (09/29/24 09:53) Saline Lock (09/29/24 09:53) Oxygen (09/29/24 09:53) Completed Orders - GINA ADAMS DO Chest,Single View (09/29/24 09:53) Cbc/Diff (09/29/24 09:53) BMP (09/29/24 09:53) PBNP (09/29/24 09:53) Electrocardiogram (09/29/24 09:53) Hs Troponin I W Calculations (09/29/24 09:53) Hs Troponin I W Calculations (09/29/24 11:53) Hs Troponin I W Calculations (09/29/24 12:53) Vital Signs 09/29/24 09/29/24 09:50 10:25 Temp 98.5 Pulse 75 Resp 16 16 B/P (MAP) 136/89 Pulse Ox 100 O2 Flow Rate 0 Laboratory Tests Test 09/29/24 09:12 09/29/24 11:39 09/29/24 13:08 White Blood Count 8.8 Red Blood Count 4.83 Hemoglobin 14.3 Hematocrit 43.0 Mean Corpuscular Volume 88.9 Mean Corpuscular Hemoglobin 29.5 Mean Corpuscular Hemoglobin Concent 33.2 Red Cell Distribution Width 16.5 H Platelet Count 292 Mean Platelet Volume 7.3 L Neutrophils (%) (Auto) 59.2 Lymphocytes (%) (Auto) 23.4 Monocytes (%) (Auto) 7.2 Eosinophils (%) (Auto) 9.3 H Basophils (%) (Auto) 0.9 Neutrophils # (Auto) 5.2 Lymphocytes # (Auto) 2.1 Monocytes # (Auto) 0.6 Eosinophils # (Auto) 0.8 Basophils # (Auto) 0.1 CBC Comment Sodium Level 137 Potassium Level 3.5 Chloride Level 99 Carbon Dioxide Level 29.5 Anion Gap 9 Blood Urea Nitrogen 9 Creatinine 0.92 Estimated GFR/1.73 m2 86 BUN/Creatinine Ratio 9.8 L Glucose Level 130 H Calcium Level 9.6 Troponin I High Sensitivity 48 49 41 Pro-B-Type Natriuretic Peptide 284 H Albumin 4.0 Chemistry Comments Troponin I High Sens Percent Delta 2 16 Troponin I Hi Sens Absolute Change 1 -8 EKG/XRAY/CT/US/VASC/MRI EKG : Additional Comment EKG was obtained and interpreted by myself showing sinus rhythm of 76, normal ME interval, narrow QRS, no QT prolongation, normal axis, frequent monomorphic PV Cs noted. Medical Decision Making Findings Facility Status: ED Holds, RME process The plan was discussed with the patient, who demonstrates clear understanding of the plan and is in agreement with the plan unless otherwise noted in the chart. All questions have been answered, all concerns were addressed unless otherwise documented. I was available throughout their ED stay for frequent reassessment and questions. Differential Diagnoses (considered and possible or likely): [Differential diagnosis considered includes chest wall pain, pleurisy, pneumonia, pulmonary embolus, GERD, esophagitis, gastritis, anxiety, stress reaction, costochondritis, acute coronary syndrome, aortic dissection, pericarditis, myocarditis, or pneumothorax.] ??Differential Diagnoses (considered and unlikely, not requiring evaluation currently): [Aortic/great vessels dissection was considered but it is unlikely based on absence of ripping, tearing, migratory chest pain, absence of syncope or focal neurologic deficits, physical examination indicating equal and symmetric pulses.] MDM Data Please see HPI for the following: Independent Historians and external Records Review. Historian: [Patient] Independent Historians: ?[Record review] Medication Management: [Reviewed medication list] Social History and determinants: [Reviewed] Please see the body of the note for the following: Any independent interpretations of ECG, imaging studies. All vitals signs/haemodynamics, ordered tests were independently reviewed and interpreted by myself. Nursing triage complaint and vitals reviewed, additional nursing notes were reviewed as available and I agree unless otherwise noted or documented in contradiction in the chart Vital Signs: Independently reviewed Labs: Independently interpreted Imaging: Independently interpreted Old Medical Records: Independently reviewed, see HPI for relevant summary and information Pulse Oximetry: [100%] interpreted as [normal on room air] by me [Record Cutter: [Regular Rate, Regular rhythm, no ectopy, NSR] reviewed and interpreted by me] Additionally notably showing: [Hemodynamics reviewed. The patient was not febrile, not tachycardic, this hypotension respiratory distress. CBC normal. Chemistries unremarkable. Troponin is borderline at 48. This is upper limits of normal. BNP is only minimally elevated decreasing suspicion for CHF exacerbation. Chest x-ray was obtained showing no acute cardiopulmonary disease Repeat troponins are stable.] Tests considered but not ordered include: [Not applicable] Social Determinants of Health Impact: Patient was evaluated in [facility], or [facility] [place] healthcare due to below par ratio of patient to medical providers. [] Comorbid Conditions Impacting Present Evaluation and Care/Treatment: [CHF, history of CAD, recent stenting] Management Discussions with other Healthcare Providers: [] Treatment and Disposition Medication Management (Given or considered): []. See EMR for details Consideration for Hospitalization/Escalation/Deescalation of Care: Admission for observation has been considered, [however the patient is able to tolerate p.o., their symptoms are controlled, they are able to rely on oral medications, and their chief complaint/diagnosis can be managed on outpatient basis.] ?ED Course:?[The patient is pain-free. He recently had angiography with a stent placement. The rest of his arteries looked okay. He is pain-free and he desires to go home. He has assured cardiology follow-up.] ?Shared decision making:?[Patient is hemodynamically stable for discharge home with follow with their primary care provider. [ ] Specific and cautious return precautions provided and discussed with full understanding. Any incidental findings were also discussed and follow up recommendations given. [] All questions answered. Patient/family were able to verbalize back return precautions. Patient/family agree to plan. Copies of imaging and laboratory studies were provided.] Code status:?FULL Please see the full Electronic Medical Record for full details of nursing do cumentation, medications list, other records of complete past medical history and conditions, vital signs, laboratory studies, and any radiologic study interpretations by radiologists. Portions of this note were completed using IDx dictation software and as a result there may exist minor errors in spelling. I have reviewed elements of past family and social history and agree as included in note. Departure Disposition: 01 HOME / SELF CARE / HOMELESS Impression: Primary Impression: Acute chest pain Condition: Improved Discharge Instructions: Nonspecific Chest Pain, Adult Referrals: NO PRIMARY CARE PROVIDER (PCP) Education Educated: Patient Educated regarding: diagnosis, treatment, prognosis, need for follow up Signature Scribe Signature: No scribe Attestation: This note accurately reflects clinical decisions, work performed by myself, DO BRYAN Espana NICHOLAS M DO Sep 29, 2024 10:20
[2024-09-29 10:28] LABS: CREATININE 0.92 MG/DL (0.60-1.10); PRO BRAIN NATRIURETIC PEPTIDE 284 PG/ML (0-125); TOTAL CARBON DIOXIDE 29.5 MMOL/L (24-32); eCRCL 81 ML/MIN; eGFR 86 ML/MIN
--- NOTE | 2024-09-29 10:31 | RADIOLOGY REPORT ---
CHEST RADIOGRAPH Indication: CP Technique: Single frontal view of the chest was obtained COMPARISON: DI CHEST,SINGLE VIEW on DOS: 09/06/24, DI CHEST,SINGLE VIEW on DOS: 08/18/24, DI CHEST,SING LE VIEW on DOS: 07/29/24, DI CHEST,SINGLE VIEW on DOS: 07/28/24, DI CHEST,SINGLE VIEW on DOS: 07/21/24 FINDINGS: Lines and Tubes: None Lungs: Clear Pleura: No effusion. No pneumothorax. Cardiomediastinal contours: Unremarkable Bones: Unremarkable IMPRESSION: 1. No acute disease.
[2024-09-29] MEDS ORDERED: FURO-149 PO (15:59)
[2024-09-29 16:02] VITALS: BP 115/76; PULSE 74; RESP 16; TEMP 98.5; O2SAT 98
== END 2024-09-29 16:06 | disposition home or self-care (01) ==
LOC: ER 09:40
DX: R07.2 Precordial pain (principal); E11.9 Type 2 diabetes mellitus without complications; I11.0 Hypertensive heart disease with heart failure; I50.9 Heart failure, unspecified; I25.2 Old myocardial infarction; E78.00 Pure hypercholesterolemia, unspecified; I25.10 Atherosclerotic heart disease of native coronary artery without angina pectoris; J45.909 Unspecified asthma, uncomplicated; Z88.0 Allergy status to penicillin; Z88.8 Allergy status to other drugs, medicaments and biological substances
CPT/HCPCS: 36415; 71045; 80048; 83880; 84484; 85025; 93005; 99285

== ENCOUNTER 2025-01-01 18:20 | Emergency (ER) | payer MEDICAID ==
[~2025-01-01] VITALS: Ht 165.1 cm; Wt 81.2 kg
[~2025-01-01 18:20] MED LIST changes: +FURO-149 PO
[2025-01-01 18:28] VITALS: TEMP 98.2
--- NOTE | 2025-01-01 18:29 | ELECTROCARDIOGRAPH REPORT ---
[facility] Test Date: 2025-01-01 Test Time: 18:25:14 Pat Name: DMITRI FERRO Department: EMERGENCY ROOM [id number] Room: Gender: M Cma: : 1970 Requested By: PATT LANDEROS Order Number: [id number] Reading MD: Dr. Dillon Chaidez Measurements Intervals [place] Rate: 78 P: -76 [place]: 229 QRS: 54 QRSD: 83 T: 0 QT: 376 QTc: 429 Interpretive Statements Sinus or ectopic atrial rhythm Prolonged [place] interval Baseline wander in lead(s) II,aVF Electronically Signed On 01-01-2025 20:35:[address] Dillon Chaidez Please click the below link to view image of tracing.
--- NOTE | 2025-01-01 18:49 | RADIOLOGY REPORT ---
EXAM: DI CHEST,SINGLE VIEW HISTORY: CP TECHNIQUE: 1 view of the chest COMPARISON: DI CHEST,SINGLE VIEW on DOS: 09/29/24 FINDINGS/IMPRESSION: LUNGS: No pleural effusion, consolidation, or pneumothorax. MEDIASTINUM: Unremarkable. BONES: No acute osseous abnormality. OTHER: None.
[2025-01-01 19:05] LABS: MEAN PLATELET VOLUME 7.3 FL (7.4-10.4); RED CELL DISTRIBUTION WIDTH 14.4 % (11.5-14.5)
--- NOTE | 2025-01-01 19:22 | Physician Documentation ---
History of Present Illness ~ Chief Complaint: Chest Pain Stated Complaint: CHEST PAIN Time Seen by MD: 19:21 Primary Medical Doctor: DR. JUAN [facility] Patient presents to the emergency room for evaluation of left-sided chest pain x3 days. He states he was seen by his primary care who performed an EKG. He states he did not feel very comfortable with that and wanted to be more thoroughly checked. Patient endorses left-sided chest pain exacerbated with movements and palpation. He has history of recent stent placement by Dr. Tolbert in his excellent cardiologic follow up with appointment tomorrow. Medication Reconciliation Allergies: Coded Allergies: iodine (Verified Allergy, Severe, 09/29/24) Per patient "Cardiac Arrest" when he received iodine amoxicillin (Verified Allergy, Mild, RASH, 09/29/24) PT TOLERATE ZOSYN 06/2024 Penicillins (Unverified Allergy, Unknown, 09/29/24) rash Uncoded Allergies: CONTRAST DYE (Allergy, Unknown, 12/26/23) Scheduled Amlodipine Besylate (Amlodipine Besylate), 1 TAB PO DAILY, (Reported) Ascorbic Acid (Ascorbic Acid), 1 TAB PO DAILY, (Reported) Aspirin (Aspirin EC), 1 TAB PO DAILY, (Reported) Atorvastatin Calcium (Atorvastatin Calcium), 1 TAB PO DAILY, (Reported) Baclofen (Baclofen), 1 TAB PO DAILY, (Reported) Carvedilol (Carvedilol), 1 TAB PO DAILY, (Reported) Citalopram Hydrobromide* (Celexa*), 1 TAB PO DAILY, (Reported) Clopidogrel Bisulfate (Clopidogrel), 1 TAB PO DAILY, (Reported) Dapagliflozin Propanediol (Farxiga), 1 TAB PO DAILY, (Reported) Empagliflozin (Jardiance), 1 TAB PO DAILY, (Reported) Ferrous Sulfate* (Ferrous Sulfate*), 1 TAB PO TID, (Reported) Furosemide (Furosemide), 1 TAB PO BID, (Reported) Furosemide (Lasix), 1 TAB PO DAILY Insulin Aspart (Novolog), 4 UNITS SQ TIDAC, (Reported) Insulin Glargine,Hum.rec.anlog (Basaglar Kwikpen U-100), 70 UNITS SUBCUT DAILY, (Reported) Ipratropium/Albuterol Sulfate (Combivent Respimat Inhal [place]), 1 PUFFS INH Q6H, (Reported) Isosorbide Mononitrate (Isosorbide Mononitrate Er), 1 TAB PO QAM, (Reported) Losartan Potassium* (Cozaar*), 2 TAB PO DAILY, (Reported) Nitroglycerin SL* (Nitrostat SL*), 1 TAB SL UD, (Reported) Pantoprazole Sodium (Pantoprazole Sodium), 1 TAB PO DAILY, (Reported) Potassium Chloride (Potassium Chloride), 1 TAB PO TID, (Reported) Pregabalin (Pregabalin), 1 CAP PO TID, (Reported) Tirzepatide (Mounjaro), 7.5 MG SQ Q7D, (Reported) Venlafaxine Hcl* (Effexor*), 2 TAB PO DAILY, (Reported) Past Medical History Past Medical History: *CARDIOVASCULAR*, Angina, Coronary Artery Disease, Congestive Heart Failure, High Cholesterol, Hypertension, Myocardial Infarction, Asthma, Pneumonia, Diabetes, Anxiety Past Surgical History: angioplasty Patient History: (CAD) Coronary arteriosclerosis FATHER, , Age: 70, Cause: CHF (congestive heart failure) (30's) Siblings Siblings Siblings (DM Type 2) Diabetes mellitus type 2 MOTHER, , Age: 63, Cause: DM complication Siblings Siblings Siblings Other Past Family History: NONCONTRIBUTORY Alcohol Use: None Drug Use: none Lives with: Other Lives In: Home Occupation: employed Review of Systems ROS All review of systems negative except as per HPI Physical Exam Vital Signs: Temperature: 98.2, Source: Temporal, Heart Rate: 77, Respiratory Rate: 16, BP: 188/98, Pulse Oximetry: 98, Weight: 81.200 Oxygen Flow Rate: 0 Physical Exam General: Patient is awake, alert, oriented x4 in no acute distress and well appearing.~ Head: Normocephalic and atraumatic. Eyes: Conjunctival normal. EOMI. PERRL. ENT: Mucous membranes moist. Neck: Supple, trachea is midline. Chest: Clear to auscultation bilaterally without rales, rhonchi, or wheezes. There is no accessory muscle use or retractions. Tenderness to palpation to left chest wall Cardiac: RRR without murmurs, gallops, or rubs. Abd: Soft, nondistended, nontender, with normoactive bowel sounds. No guarding, rebound, or rigidity. Progress Results/Orders Results/Orders Orders - RANGEL BLACKWOOD MD Chest,Single View (01/01/25 18:33) Monitor (01/01/25 18:27) Saline Lock (01/01/25 18:27) Oxygen (01/01/25 18:27) Hs Troponin I W Calculations (01/01/25 20:27) Hs Troponin I W Calculations (01/01/25 21:27) Completed Orders - RANGEL BLACKWOOD MD Chest,Single View (01/01/25 18:33) Cbc/Diff (01/01/25 18:27) BMP (01/01/25 18:27) PBNP (01/01/25 18:) Electrocardiogram (01/01/25 18:) Hs Troponin I W Calculations (01/01/25 18:27) Vital Signs 01/01/25 18:28 Temp 98.2 Pulse 77 Resp 16 B/P (MAP) 188/98 Pulse Ox 98 O2 Flow Rate 0 Laboratory Tests Test 01/01/25 18:51 White Blood Count 7.2 Red Blood Count 5.18 Hemoglobin 15.6 Hematocrit 45.6 Mean Corpuscular Volume 88.0 Mean Corpuscular Hemoglobin 30.1 Mean Corpuscular Hemoglobin Concent 34.2 Red Cell Distribution Width 14.4 Platelet Count 249 Mean Platelet Volume 7.3 L Neutrophils (%) (Auto) 60.0 Lymphocytes (%) (Auto) 23.4 Monocytes (%) (Auto) 9.1 Eosinophils (%) (Auto) 6.9 H Basophils (%) (Auto) 0.6 Neutrophils # (Auto) 4.3 Lymphocytes # (Auto) 1.7 Monocytes # (Auto) 0.7 Eosinophils # (Auto) 0.5 Basophils # (Auto) 0.0 CBC Comment Sodium Level 141 Potassium Level 3.7 Chloride Level 100 Carbon Dioxide Level 32.0 Anion Gap 9 Blood Urea Nitrogen 11 Creatinine 1.20 H Estimated GFR/1.73 m2 63 BUN/Creatinine Ratio 9.2 L Glucose Level 201 H Calcium Level 9.2 Troponin I High Sensitivity 52 Pro-B-Type Natriuretic Peptide 176 H Albumin 4.4 Chemistry Comments EKG/XRAY/CT/US/VASC/MRI EKG : Additional Comment EKG interpreted by myself shows time of 1825, rate 78, sinus rhythm, normal axis, no ST changes Chest X-Ray : Additional Comments Exam: CHEST,SINGLE VIEW EXAM: DI CHEST,SINGLE VIEW HISTORY: CP TECHNIQUE: 1 view of the chest COMPARISON: DI CHEST,SINGLE VIEW on DOS: 09/29/24 FINDINGS/IMPRESSION: LUNGS: No pleural effusion, consolidation, or pneumothorax. MEDIASTINUM: Unremarkable. BONES: No acute osseous abnormality. OTHER: None. Medical Decision Making Additional information obtaine: old records Findings Patient presents to the emergency room with left-sided chest pain exacerbated with palpation and movement. Differentials include but are not limited to musculoskeletal pain, ACS, pulmonary embolism, aortic pathology therefore emergent labs ordered. Labs reassuring for negative troponins. I do not feel patient requires a 2nd troponin given time of onset three days ago. He has excellent follow up. Heart score is reassuring. Heart Score: 3 Differential Dx:Considerations: Include: angina, aortic dissection, chest wall pain, cholelithiasis, CHF, costochondritis, esophageal reflux/spasm, gastritis, herpes zoster, myocardial infarction, pericarditis, pleuritis, pancreatitis, pneumonia, pneumothorax, pulmonary embolus, other Departure Disposition: 01 HOME / SELF CARE / HOMELESS Impression: Primary Impression: Chest wall pain Condition: Stable Discharge Instructions: Chest Wall Pain Additional Instructions: Follow up with your reacher tomorrow as scheduled Referrals: NO PRIMARY CARE PROVIDER (PCP) Signature Scribe Signature: No scribe Attestation: The note accurately reflects work and decisions made by me.Rangel Blackwood MD 01/01/25 19:38 RANGEL BLACKWOOD MD Jan 01, 2025 19:22
[2025-01-01 19:26] LABS: CREATININE 1.20 MG/DL (0.60-1.10); PRO BRAIN NATRIURETIC PEPTIDE 176 PG/ML (0-125); TOTAL CARBON DIOXIDE 32.0 MMOL/L (24-32); eCRCL 61 ML/MIN; eGFR 63 ML/MIN
[2025-01-01 19:46] VITALS: BP 149/83; PULSE 71; RESP 12; O2SAT 98
== END 2025-01-01 19:47 | disposition home or self-care (01) ==
LOC: ER 18:21
DX: R07.89 Other chest pain (principal); I11.0 Hypertensive heart disease with heart failure; I50.9 Heart failure, unspecified; F41.9 Anxiety disorder, unspecified; E11.9 Type 2 diabetes mellitus without complications; E78.00 Pure hypercholesterolemia, unspecified; I25.10 Atherosclerotic heart disease of native coronary artery without angina pectoris; I25.2 Old myocardial infarction; Z91.041 Radiographic dye allergy status; Z88.0 Allergy status to penicillin; Z88.1 Allergy status to other antibiotic agents; Z79.82 Long term (current) use of aspirin; Z79.899 Other long term (current) drug therapy; Z87.01 Personal history of pneumonia (recurrent)
CPT/HCPCS: 36415; 71045; 80048; 83880; 84484; 85025; 93005; 99285

== ENCOUNTER 2025-01-04 07:30 | Day surgery (SDC) | payer MEDICAID ==
[~2025-01-04] VITALS: Ht 165.1 cm; Wt 82.1 kg
[2025-01-04] VITALS (9 sets, daily range): BP systolic 99–123; BP diastolic 57–72; PULSE 62–67; RESP 14–19; TEMP 99.4; O2SAT 93–96
--- NOTE | 2025-01-04 08:14 | ELECTROCARDIOGRAPH REPORT ---
[facility] Test Date: 2025-01-04 Test Time: 09:09:14 Pat Name: DMITRI FERRO Department: [facility] Patient ID: [id number] Room: Gender: M [employer]: : 1970 Requested By: TIFFANY LEE Order Number: [id number] Reading MD: Dr. QI Alvarado Measurements Intervals [place] Rate: 67 P: -32 [place]: 215 QRS: 11 QRSD: 91 T: 87 QT: 386 QTc: 408 Interpretive Statements Sinus rhythm Prolonged [place] interval Nonspecific T abnormalities, lateral leads ST elev, probable normal early repol pattern Electronically Signed On 01-04-2025 16:51:[address] QI Alvarado Please click the below link to view image of tracing.
[2025-01-04] MEDS ORDERED: GABA-530 PO (08:35)
[2025-01-04] MEDS ORDERED: FLUR2.5D3 EACHEYE (08:35)
[2025-01-04] MEDS ORDERED: OMEP20CA16 PO (08:35)
[2025-01-04] MEDS ORDERED: METF-438 PO (08:35)
[2025-01-04] MEDS ORDERED: ISOS60TA71 PO (08:35)
[2025-01-04] MEDS ORDERED: CARV-50 PO (08:35)
[2025-01-04 08:44] LABS: MEAN PLATELET VOLUME 7.4 FL (7.4-10.4); RED CELL DISTRIBUTION WIDTH 14.5 % (11.5-14.5)
[2025-01-04 08:53] LABS: INR 0.9 INR
[2025-01-04 08:55] LABS: CREATININE 1.05 MG/DL (0.60-1.10); TOTAL CARBON DIOXIDE 29.3 MMOL/L (24-32); eCRCL 70 ML/MIN; eGFR 74 ML/MIN
[2025-01-04] MEDS: sodium bicarbonate 1meq/ml syr 150 ML in dextrose 5%-water 1,000 ML IV ONE (09:09)
[2025-01-04] MEDS ORDERED: iohexol 350 MG/ML 50ML vial IV ONE (09:34)
[2025-01-04] MEDS ORDERED: verapamil 2.5 mg/ml inj IV ONE (09:34)
[2025-01-04] MEDS ORDERED: nitroGLYCERIN 500mcg/5mL D5W 5 ML IV ONE (09:34)
[2025-01-04] MEDS ORDERED: fentaNYL/PF 50MCG/1 ML 2ML syringe ONE (09:34)
[2025-01-04] MEDS ORDERED: heparin 1,000unit/ml 10ml vial 10 ML ONE (09:34)
[2025-01-04] MEDS ORDERED: midazolam 1 mg/ML 2ml injection ONE (09:34)
[2025-01-04] MEDS ORDERED: LIDOcaine 1% (10mg/ml) 2ml vial ONE (09:35)
[2025-01-04] MEDS ORDERED: HYDROcodone/acetaminophen 10/325mg tab PO PRN (11:55)
[2025-01-04] MEDS ORDERED: HYDROcodone/acetaminophen 5mg/325mg tablet PO PRN (11:55)
[2025-01-04] MEDS ORDERED: ondansetron/PF 4mg/2ml inj IV PRN (11:55)
--- NOTE | 2025-01-04 14:33 | CARDIOLOGY REPORT ---
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 REFERRING PHYSICIAN: Colt West MD CLINICAL HISTORY: This 54-year-old man has a long history of medical problems that include coronary artery disease. He has most recently had a stent placed in 08/2024. He is currently complaining of recurrent chest pain. He has multiple other medical problems, which do include diabetes. PROCEDURES PERFORMED: * Left heart catheterization. * Left ventriculography. * Selective coronary arteriography. * 30 minutes conscious sedation supervision. DESCRIPTION OF THE PROCEDURE: The patient was sedated with fentanyl and Versed. He was then prepared and draped in the usual manner. The right radial area was infiltrated with 1% lidocaine using a micropuncture set. Under Seldinger technique, a 6-Monegasque sheath was placed in the radial artery. 200 mcg of nitroglycerin and 2.5 mg of verapamil were directly injected into the radial artery. 5000 units of heparin were given in a peripheral IV. Left heart catheterization and left ventriculography were performed using a 6-Monegasque pigtail catheter. Coronary arteriography was performed using a 6-Monegasque Kimny catheter for the left coronary artery and a 6-Monegasque #4 right Fidencio catheter for the right coronary artery. The arterial sheath was removed and Vasc Band was applied. RESULTS: HEMODYNAMIC DATA: The left ventricular end-diastolic pressure was 11 mmHg. There was no gradient across the aortic valve. LEFT VENTRICULOGRAM: The left ventriculogram was technically satisfactory. There was generalized mild to moderate hypokinesis. The ejection fraction was estimated to be about 40%. Stents were visible in the proximal, mid, and distal LAD. CORONARY ARTERIOGRAPHY: The coronary arteriograms were technically satisfactory. The patient may have had a mixed dominant system. LEFT MAIN CORONARY ARTERY: The left main was a short, large, unobstructed vessel immediately bifurcating into left anterior descending and circumflex coronary arteries. LEFT ANTERIOR DESCENDING CORONARY ARTERY: The LAD was a large vessel. There was a very small caliber, very proximal first diagonal. There was a small to medium-sized second diagonal. There were no other diagonals. The LAD overall was unobstructed as was the case for the stents within the proximal and mid vessel. CIRCUMFLEX CORONARY ARTERY: The circumflex was a large mainstem vessel. There is a stent proximally that is widely patent. The first 4 obtuse marginals were all very small in caliber and containing luminal irregularities. There was a medium to large and very long posterolateral branch and a very small caliber terminal branch that was diffusely diseased but once again way too small for an intervention. RIGHT CORONARY ARTERY: The right coronary was totally occluded proximally. The only filling was in a small acute marginal branch. CONCLUSIONS: * Severe coronary artery disease, primarily manifested as diffuse atherosclerosis in very small caliber branches of the LAD and circumflex coronary arteries as well as what appears to be a total occlusion of the right coronary. * The patient has a very large circumflex coronary system, making it look as though this patient had co-dominant coronaries or perhaps actually had a left dominant system, making the right coronary far less significant. There is no collateralization to any distal right coronary segments. * Stents within the proximal, mid, and distal LAD are all widely patent and there is no new obstructive disease in the left anterior descending coronary artery. * A stent within the proximal circumflex coronary artery is patent and unobstructed; however, this vessel has 4 very small caliber branches which appear to be diffusely diseased. These branches are far too small for any consideration of PCI or even bypass grafting. * There is a chronic occlusion in the right coronary, but this reviewer is not certain that the patient has had a full-sized right coronary. This may be a left dominant system. An occlusion of a nondominant right coronary then would be insignificant. There is no collateralization to distal segments of the right coronary artery. * Left ventricular function is moderately reduced. There was generalized hypokinesis with an LVEF of about 40%. RECOMMENDATIONS: Ongoing medical therapy. TIFFANY LEE DO TID: [id number] RECEIPT: [id number] LATISHA GUZMÁN
== END 2025-01-04 14:00 | disposition home or self-care (01) ==
LOC: SSTAY O 07:30
PROVIDERS: ATTEND Internal Medicine Cardiovascular Disease
DX: I25.10 Atherosclerotic heart disease of native coronary artery without angina pectoris (principal); I44.0 Atrioventricular block, first degree; E11.9 Type 2 diabetes mellitus without complications; J44.89 Other specified chronic obstructive pulmonary disease; I11.0 Hypertensive heart disease with heart failure; I50.9 Heart failure, unspecified; R56.9 Unspecified convulsions; Z95.5 Presence of coronary angioplasty implant and graft; Z98.890 Other specified postprocedural states; Z87.891 Personal history of nicotine dependence; Z83.3 Family history of diabetes mellitus; Z82.49 Family history of ischemic heart disease and other diseases of the circulatory system
CPT/HCPCS: 36415; 80048; 82948; 83735; 85025; 85610; 93005; 93458; J1644; J2003; J2250; J2919; J3010; J3490; J7030; J7070; Q0163; Q9967; 99152; 99153; A6258; A6402; C1894